=== PATIENT | female | born 1950 | race Caucasian/White ===

== ENCOUNTER → 2018-03-28 | Outpatient (CLI) | payer MEDICARE, BC | END | disposition home or self-care (01) | LOC: LAB SHORT 13:23 → LAB EV 13:23 | DX: R10.9 Unspecified abdominal pain (principal) | CPT/HCPCS: 87086 ==

== ENCOUNTER 2018-05-11 13:01 | Emergency (ER) | payer MEDICARE, BC ==
[~2018-05-11] VITALS: Ht 165.1 cm; Wt 99.8 kg
[2018-05-11] MEDS ORDERED: LISI20 PO (13:34)
[2018-05-11] MEDS ORDERED: LORA1 PO (13:35)
[2018-05-11] MEDS ORDERED: ATEN50 PO (13:35)
[2018-05-11] MEDS ORDERED: LEVSOD100 PO (13:35)
[2018-05-11] MEDS ORDERED: Aspir 8181 MG PO (13:35)
[2018-05-11] MEDS ORDERED: Omeprazole20 M1 PO (13:35)
[2018-05-11] MEDS ORDERED: HYDCHL25 PO ×2 (13:36→16:37)
[2018-05-11] MEDS ORDERED: MESA250ER PO (13:36)
[2018-05-11] MEDS ORDERED: NITR.4SL (13:36)
[2018-05-11] MEDS ORDERED: QUET25 PO (13:36)
[2018-05-11 14:43] LABS: BASOPHILS ABSOLUTE AUTO 0.03 K/mm3 (0.00-0.23); BASOPHILS PERCENT AUTO 1 % (0-2); EOSINOPHILS ABSOLUTE AUTO 0.12 K/mm3 (0.00-0.68); EOSINOPHILS PERCENT AUTO 2 % (0-6); Hematocrit 34.4 % (33.0-51.0); Hemoglobin 11.5 g/dL (11.5-16.0); IMMATURE GRAN ABSOLUTE AUTO 0.02 K/mm3 (0.00-0.10); IMMATURE GRAN PERCENT AUTO 0 % (0-1); LYMPHOCYTES ABSOLUTE AUTO 0.84 K/mm3 (0.84-5.20); LYMPHOCYTES PERCENT AUTO 16 % (21-46); MONOCYTES ABSOLUTE AUTO 0.52 K/mm3 (0.16-1.47); MONOCYTES PERCENT AUTO 10 % (4-13); Mean Corpuscular HGB 28.6 pg (26.0-34.0); Mean Corpuscular HGB Conc 33.4 g/dL (31.5-36.5); Mean Corpuscular Volume 86 fL (80-100); Mean Platelet Volume 9.9 fL (9.1-12.4); NEUTROPHILS ABSOLUTE AUTO 3.79 K/mm3 (1.96-9.15); NEUTROPHILS PERCENT AUTO 71 % (41-73); Platelet Count 268 K/mm3 (150-400); RDW Coefficient Variation 14.4 % (11.7-14.2); RDW Standard Deviation 44.1 fL (35.1-46.3); Red Blood Cell Count 4.02 M/mm3 (3.80-5.20); White Blood Cell Count 5.32 K/mm3 (4.00-11.30)
[2018-05-11 14:50] LABS: Alanine Aminotransfer (ALT/SGP 29 U/L (12-78); Albumin/Globulin Ratio 1.1 (0.8-1.8); Alk Phos 140 U/L (50-136); Anion Gap 7 mmol/L (6-16); Aspartate Aminotrans (AST/SGOT 21 U/L (12-37); Bilirubin, Total 0.7 mg/dL (0.1-1.0); Blood Urea Nitrogen 11 mg/dL (8-24); Bun/Creatinine Ratio 11.7 (12.0-20.0); CO2, Blood 29 mmol/L (21-32); Calcium, Blood 8.8 mg/dL (8.5-10.1); Chloride, Blood 96 mmol/L (98-108); Creatinine, Blood 0.94 mg/dL (0.40-1.00); Globulin, Blood 3.6 g/dL (2.2-4.0); Glomerular Filtration Rate >60 (60-); Glucose, Blood 103 mg/dL (70-99); Sodium, Blood 132 mmol/L (136-145); Total Protein, Blood 7.6 g/dL (6.4-8.2)
[2018-05-11] MEDS ORDERED: MECL12.5 PO (16:37)
[2018-05-11] MEDS ORDERED: Zofran8 MG PO (16:37)
== END 2018-05-11 16:54 | disposition home or self-care (01) ==
LOC: ER 13:01
PROVIDERS: Physician Assistant
DX: R42 Dizziness and giddiness (principal); I10 Essential (primary) hypertension; Z88.2 Allergy status to sulfonamides; Z88.1 Allergy status to other antibiotic agents; Z79.899 Other long term (current) drug therapy; Z79.82 Long term (current) use of aspirin
CPT/HCPCS: 36415; 70450; 80053; 85025; 93005; 93010; 96374; 99284-25; J2060

== ENCOUNTER → 2018-10-03 | Outpatient (CLI) | payer MEDICARE, BC ==
[~2018-10-03] MED LIST: ASACOL HD800 MG PO; ATEN25 PO; ATORVASTATIN CA40 MG PO; Aspir 8181 MG PO; Aspirin EC81 MG PO; BICALUTAMIDE50 MG PO; Bentyl20 MG PO; FURO20 PO; GABA300 PO; HYDCHL25 PO; Isosorbide Mono30 MG PO; LEVSOD100 PO; LISI20 PO; LORA1 PO; MECL12.5 PO; MESA250ER PO; METO25 PO; NITR.4SL; Omeprazole20 M1 PO; POTCHL20ER PO; Pedi-Dri 100,0060 GM TOP; Prilosec Otc20 MG PO; QUET25 PO; SIME80CH PO; Seroquel50 MG PO; Zofran8 MG PO
[2018-10-03 15:51] LABS: BASOPHILS ABSOLUTE AUTO 0.03 K/mm3 (0.00-0.23); BASOPHILS PERCENT AUTO 1 % (0-2); EOSINOPHILS PERCENT AUTO 2 % (0-6); Hematocrit 28.6 % (33.0-51.0); Hemoglobin 10.2 g/dL (11.5-16.0); IMMATURE GRAN ABSOLUTE AUTO 0.01 K/mm3 (0.00-0.10); IMMATURE GRAN PERCENT AUTO 0 % (0-1); LYMPHOCYTES ABSOLUTE AUTO 0.82 K/mm3 (0.84-5.20); LYMPHOCYTES PERCENT AUTO 16 % (21-46); MONOCYTES ABSOLUTE AUTO 0.65 K/mm3 (0.16-1.47); MONOCYTES PERCENT AUTO 13 % (4-13); Mean Corpuscular HGB 29.4 pg (26.0-34.0); Mean Corpuscular HGB Conc 35.7 g/dL (31.5-36.5); Mean Corpuscular Volume 82 fL (80-100); Mean Platelet Volume 9.2 fL (9.1-12.4); NEUTROPHILS PERCENT AUTO 69 % (41-73); Platelet Count 288 K/mm3 (150-400); RDW Coefficient Variation 13.2 % (11.7-14.2); RDW Standard Deviation 39.4 fL (35.1-46.3); Red Blood Cell Count 3.47 M/mm3 (3.80-5.20); White Blood Cell Count 5.21 K/mm3 (4.00-11.30)
[2018-10-03 16:02] LABS: Alanine Aminotransfer (ALT/SGP 28 U/L (12-78); Albumin, Blood 3.7 g/dL (3.4-5.0); Albumin/Globulin Ratio 0.9 (0.8-1.8); Alk Phos 142 U/L (40-126); Anion Gap 9 mmol/L (6-16); Aspartate Aminotrans (AST/SGOT 17 U/L (12-37); Bilirubin, Total 0.6 mg/dL (0.1-1.0); Blood Urea Nitrogen 12 mg/dL (8-24); Bun/Creatinine Ratio 12.2 (12.0-20.0); CO2, Blood 27 mmol/L (21-32); Calcium, Blood 9.3 mg/dL (8.5-10.1); Chloride, Blood 93 mmol/L (98-108); Creatinine, Blood 0.98 mg/dL (0.40-1.00); Globulin, Blood 3.9 g/dL (2.2-4.0); Glomerular Filtration Rate 56 (60-); Glucose, Blood 97 mg/dL (70-99); Potassium, Blood 4.2 mmol/L (3.5-5.5); Sodium, Blood 129 mmol/L (136-145); Total Protein, Blood 7.6 g/dL (6.4-8.2)
[2018-10-03 16:05] LABS: Troponin I <0.017 ng/mL (0.000-0.040)
== END | disposition home or self-care (01) ==
LOC: LAB EV 15:44 → LAB SHORT 15:44
PROVIDERS: Physician Assistant
DX: R07.89 Other chest pain (principal)
CPT/HCPCS: 80053; 83880; 84484; 85025

== ENCOUNTER 2018-11-05 17:18 | Inpatient (IN) | payer MEDICARE, BC ==
[~2018-11-05] VITALS: Ht 165.1 cm; Wt 103.4 kg
[~2018-11-05 17:18] MED LIST changes: -ASACOL HD800 MG PO; -ATEN25 PO; -ATORVASTATIN CA40 MG PO; -Aspirin EC81 MG PO; -BICALUTAMIDE50 MG PO; -Bentyl20 MG PO; -FURO20 PO; -GABA300 PO; -Isosorbide Mono30 MG PO; -LEVSOD100 PO; -LORA1 PO; -METO25 PO; -POTCHL20ER PO; -Pedi-Dri 100,0060 GM TOP; -Prilosec Otc20 MG PO; -SIME80CH PO; -Seroquel50 MG PO
[2018-11-05 17:55] LABS: BASOPHILS ABSOLUTE AUTO 0.02 K/mm3 (0.00-0.23); BASOPHILS PERCENT AUTO 0 % (0-2); EOSINOPHILS ABSOLUTE AUTO 0.04 K/mm3 (0.00-0.68); EOSINOPHILS PERCENT AUTO 1 % (0-6); Hematocrit 32.6 % (33.0-51.0); Hemoglobin 11.6 g/dL (11.5-16.0); IMMATURE GRAN ABSOLUTE AUTO 0.04 K/mm3 (0.00-0.10); IMMATURE GRAN PERCENT AUTO 1 % (0-1); LYMPHOCYTES PERCENT AUTO 14 % (21-46); MONOCYTES ABSOLUTE AUTO 0.85 K/mm3 (0.16-1.47); MONOCYTES PERCENT AUTO 12 % (4-13); Mean Corpuscular HGB 29.5 pg (26.0-34.0); Mean Corpuscular HGB Conc 35.6 g/dL (31.5-36.5); Mean Corpuscular Volume 83 fL (80-100); Mean Platelet Volume 9.1 fL (9.1-12.4); NEUTROPHILS ABSOLUTE AUTO 5.27 K/mm3 (1.96-9.15); NEUTROPHILS PERCENT AUTO 73 % (41-73); Platelet Count 282 K/mm3 (150-400); RDW Coefficient Variation 12.3 % (11.7-14.2); RDW Standard Deviation 37.8 fL (35.1-46.3); Red Blood Cell Count 3.93 M/mm3 (3.80-5.20); White Blood Cell Count 7.22 K/mm3 (4.00-11.30)
[2018-11-05 18:21] LABS: Troponin I <0.015 ng/mL (0.000-0.040)
[2018-11-05] MEDS ORDERED: METO25 PO (18:22)
[2018-11-05] MEDS ORDERED: BICALUTAMIDE50 MG PO (18:23)
[2018-11-05] MEDS ORDERED: LISI20 PO (18:23)
[2018-11-05 18:24] LABS: Alanine Aminotransfer (ALT/SGP 24 U/L (12-78); Albumin, Blood 3.7 g/dL (3.4-5.0); Alk Phos 159 U/L (50-136); Aspartate Aminotrans (AST/SGOT 27 U/L (12-37); Bilirubin, Total 1.5 mg/dL (0.1-1.0); Blood Urea Nitrogen 13 mg/dL (8-24); Bun/Creatinine Ratio 13.7 (12.0-20.0); CO2, Blood 30 mmol/L (21-32); Calcium, Blood 9.1 mg/dL (8.5-10.1); Chloride, Blood 80 mmol/L (98-108); Creatinine, Blood 0.95 mg/dL (0.40-1.00); Globulin, Blood 3.6 g/dL (2.2-4.0); Glomerular Filtration Rate >60 (60-); Glucose, Blood 96 mg/dL (70-99); Potassium, Blood 3.5 mmol/L (3.5-5.5); Total Protein, Blood 7.3 g/dL (6.4-8.2)
[2018-11-05 18:25] LABS: Anion Gap 7 mmol/L (6-16); Sodium, Blood 117 mmol/L (136-145)
[2018-11-05] MEDS ORDERED: FURO20 PO (18:25)
[2018-11-05] MEDS ORDERED: Seroquel50 MG PO (18:25)
[2018-11-05] MEDS ORDERED: Prilosec Otc20 MG PO (18:25)
[2018-11-05] MEDS ORDERED: Aspirin EC81 MG PO (18:25)
[2018-11-05] MEDS ORDERED: POTCHL20ER PO (18:26)
[2018-11-05 19:12] LABS: Source, Urine Clean Catch
[2018-11-05 19:16] LABS: Bilirubin, Urine Neg (Neg); Blood, Urine Neg (Neg); Glucose Qualitative, Urine Neg (Neg); Ketones, Urine Neg (Neg); Leukocyte Esterase, Urine Neg (Neg); Nitrite, Urine Neg (Neg); Protein, Urine Neg (Neg); Specific Gravity, Urine 1.005 (1.003-1.022); Urobilinogen, Urine NORM (Normal)
[2018-11-05 19:26] LABS: Appearance, Urine Clear (Clear); Color, Urine Yellow (P-Yellow)
[2018-11-05] MEDS ORDERED: LEVSOD100 PO (19:27)
[2018-11-05] MEDS ORDERED: ATEN25 PO (19:27)
[2018-11-05] MEDS ORDERED: LORA1 PO (19:29)
[2018-11-05] MEDS ORDERED: GABA300 PO (19:30)
[2018-11-05] MEDS ORDERED: HYDCHL25 PO (19:31)
[2018-11-05] MEDS ORDERED: ATORVASTATIN CA40 MG PO (19:32)
[2018-11-05] MEDS ORDERED: Isosorbide Mono30 MG PO (19:33)
[2018-11-05] MEDS ORDERED: ASACOL HD800 MG PO (19:58)
[2018-11-05 22:47] LABS: Magnesium, Blood 1.8 mg/dL (1.6-2.4)
[2018-11-05 22:53] LABS: C-REACTIVE PROTEIN, EXT RANGE 0.859 mg/dL (0.000-0.300)
[2018-11-05 22:54] LABS: Thyroid Stimulating Hormone 0.751 uIU/mL (0.360-4.800)
[2018-11-06 04:31] LABS: BASOPHILS ABSOLUTE AUTO 0.02 K/mm3 (0.00-0.23); BASOPHILS PERCENT AUTO 0 % (0-2); EOSINOPHILS PERCENT AUTO 2 % (0-6); Hematocrit 30.6 % (33.0-51.0); Hemoglobin 10.8 g/dL (11.5-16.0); IMMATURE GRAN ABSOLUTE AUTO 0.04 K/mm3 (0.00-0.10); IMMATURE GRAN PERCENT AUTO 1 % (0-1); LYMPHOCYTES ABSOLUTE AUTO 1.22 K/mm3 (0.84-5.20); LYMPHOCYTES PERCENT AUTO 19 % (21-46); MONOCYTES ABSOLUTE AUTO 1.01 K/mm3 (0.16-1.47); MONOCYTES PERCENT AUTO 16 % (4-13); Mean Corpuscular HGB 29.8 pg (26.0-34.0); Mean Corpuscular HGB Conc 35.3 g/dL (31.5-36.5); Mean Corpuscular Volume 84 fL (80-100); Mean Platelet Volume 9.1 fL (9.1-12.4); NEUTROPHILS ABSOLUTE AUTO 4.01 K/mm3 (1.96-9.15); NEUTROPHILS PERCENT AUTO 63 % (41-73); Platelet Count 249 K/mm3 (150-400); RDW Coefficient Variation 12.5 % (11.7-14.2); RDW Standard Deviation 38.3 fL (35.1-46.3); Red Blood Cell Count 3.63 M/mm3 (3.80-5.20)
[2018-11-06 04:57] LABS: Alanine Aminotransfer (ALT/SGP 17 U/L (12-78); Albumin, Blood 3.5 g/dL (3.4-5.0); Albumin/Globulin Ratio 1.1 (0.8-1.8); Alk Phos 148 U/L (50-136); Anion Gap 8 mmol/L (6-16); Aspartate Aminotrans (AST/SGOT 22 U/L (12-37); Bilirubin, Total 0.7 mg/dL (0.1-1.0); Blood Urea Nitrogen 12 mg/dL (8-24); Bun/Creatinine Ratio 12.9 (12.0-20.0); CO2, Blood 27 mmol/L (21-32); Calcium, Blood 8.8 mg/dL (8.5-10.1); Chloride, Blood 88 mmol/L (98-108); Creatinine, Blood 0.93 mg/dL (0.40-1.00); Globulin, Blood 3.3 g/dL (2.2-4.0); Glomerular Filtration Rate >60 (60-); Glucose, Blood 97 mg/dL (70-99); Potassium, Blood 3.3 mmol/L (3.5-5.5); Sodium, Blood 123 mmol/L (136-145); Total Protein, Blood 6.8 g/dL (6.4-8.2)
[2018-11-07 08:06] LABS: Anion Gap 9 mmol/L (6-16); Blood Urea Nitrogen 9 mg/dL (8-24); CO2, Blood 25 mmol/L (21-32); Calcium, Blood 8.6 mg/dL (8.5-10.1); Chloride, Blood 96 mmol/L (98-108); Creatinine, Blood 0.82 mg/dL (0.40-1.00); Glomerular Filtration Rate >60 (60-); Glucose, Blood 100 mg/dL (70-99); Potassium, Blood 3.6 mmol/L (3.5-5.5); Sodium, Blood 130 mmol/L (136-145)
[2018-11-07] MEDS ORDERED: Bentyl20 MG PO (09:23)
[2018-11-07] MEDS ORDERED: Pedi-Dri 100,0060 GM TOP (09:24)
[2018-11-07] MEDS ORDERED: SIME80CH PO (09:27)
== END 2018-11-07 11:39 | disposition home or self-care (01) | DRG 644 ==
LOC: ER 17:18 → ERHOLD 23:13 → PCU 23:13
PROVIDERS: Internal Medicine; Nurse Practitioner Acute Care; Physician Assistant; ADMIT Internal Medicine
DX: E22.2 Syndrome of inappropriate secretion of antidiuretic hormone (principal); K51.90 Ulcerative colitis, unspecified, without complications; I50.32 Chronic diastolic (congestive) heart failure; K62.5 Hemorrhage of anus and rectum; Z79.82 Long term (current) use of aspirin; E03.9 Hypothyroidism, unspecified; I35.0 Nonrheumatic aortic (valve) stenosis; I11.0 Hypertensive heart disease with heart failure; Z87.891 Personal history of nicotine dependence; E86.0 Dehydration; K21.9 Gastro-esophageal reflux disease without esophagitis; I25.10 Atherosclerotic heart disease of native coronary artery without angina pectoris; I27.20 Pulmonary hypertension, unspecified; I71.2 Thoracic aortic aneurysm, without rupture; F31.9 Bipolar disorder, unspecified; H40.9 Unspecified glaucoma; F43.10 Post-traumatic stress disorder, unspecified; K59.00 Constipation, unspecified; R00.1 Bradycardia, unspecified
CPT/HCPCS: 36415; 71046; 74177; 80048; 80053; 81003; 83690; 83735; 83930; 83935; 84295; 84300; 84443; 84484; 85025; 85651; 86140; 93005; 93010; 96361-59; 96374-59; 96375-59; 96376-59; 99285-25; A9270; J1170; J1200; J1650; J2405; J2765; J7030; J7120; Q9967

== ENCOUNTER → 2019-01-10 | Outpatient (CLI) | payer MEDICARE, BC ==
[~2019-01-10] MED LIST changes: +ASACOL HD800 MG PO; +ATEN25 PO; +ATORVASTATIN CA40 MG PO; +Aspirin EC81 MG PO; +BICALUTAMIDE50 MG PO; +Bentyl20 MG PO; +FURO20 PO; +GABA300 PO; +Isosorbide Mono30 MG PO; +LEVSOD100 PO; +LORA1 PO; +METO25 PO; +POTCHL20ER PO; +Pedi-Dri 100,0060 GM TOP; +Prilosec Otc20 MG PO; +SIME80CH PO; +Seroquel50 MG PO
[2019-01-10 12:35] LABS: Calcium, Blood 9.2 mg/dL (8.5-10.1); Potassium, Blood 4.1 mmol/L (3.5-5.5)
== END | disposition home or self-care (01) ==
LOC: LAB SHORT 12:23 → LAB EV 12:23
PROVIDERS: Family Medicine
DX: N18.9 Chronic kidney disease, unspecified (principal)
CPT/HCPCS: 80048

== ENCOUNTER 2019-02-05 12:52 | Emergency (ER) | payer MEDICARE, BC ==
[~2019-02-05] VITALS: Ht 165.1 cm; Wt 120.7 kg
[2019-02-05 13:44] LABS: BASOPHILS ABSOLUTE AUTO 0.02 K/mm3 (0.00-0.23); BASOPHILS PERCENT AUTO 1 % (0-2); EOSINOPHILS ABSOLUTE AUTO 0.15 K/mm3 (0.00-0.68); EOSINOPHILS PERCENT AUTO 4 % (0-6); Hemoglobin 11.1 g/dL (11.5-16.0); IMMATURE GRAN ABSOLUTE AUTO 0.01 K/mm3 (0.00-0.10); IMMATURE GRAN PERCENT AUTO 0 % (0-1); LYMPHOCYTES ABSOLUTE AUTO 0.92 K/mm3 (0.84-5.20); LYMPHOCYTES PERCENT AUTO 25 % (21-46); MONOCYTES ABSOLUTE AUTO 0.51 K/mm3 (0.16-1.47); MONOCYTES PERCENT AUTO 14 % (4-13); Mean Corpuscular HGB 29.5 pg (26.0-34.0); Mean Corpuscular HGB Conc 34.7 g/dL (31.5-36.5); Mean Corpuscular Volume 85 fL (80-100); Mean Platelet Volume 9.2 fL (9.1-12.4); NEUTROPHILS ABSOLUTE AUTO 2.14 K/mm3 (1.96-9.15); NEUTROPHILS PERCENT AUTO 57 % (41-73); Platelet Count 285 K/mm3 (150-400); RDW Coefficient Variation 12.8 % (11.7-14.2); RDW Standard Deviation 39.4 fL (35.1-46.3); Red Blood Cell Count 3.76 M/mm3 (3.80-5.20); White Blood Cell Count 3.75 K/mm3 (4.00-11.30)
[2019-02-05 14:15] LABS: Alanine Aminotransfer (ALT/SGP 21 U/L (12-78); Albumin, Blood 3.6 g/dL (3.4-5.0); Alk Phos 135 U/L (50-136); Anion Gap 9 mmol/L (6-16); Aspartate Aminotrans (AST/SGOT 17 U/L (12-37); Bilirubin, Total 0.3 mg/dL (0.1-1.0); Blood Urea Nitrogen 9 mg/dL (8-24); Bun/Creatinine Ratio 9.7 (12.0-20.0); CO2, Blood 27 mmol/L (21-32); Calcium, Blood 8.6 mg/dL (8.5-10.1); Chloride, Blood 87 mmol/L (98-108); Creatinine, Blood 0.93 mg/dL (0.40-1.00); Globulin, Blood 3.7 g/dL (2.2-4.0); Glomerular Filtration Rate >60 (60-); Glucose, Blood 89 mg/dL (70-99); Potassium, Blood 3.8 mmol/L (3.5-5.5); Sodium, Blood 123 mmol/L (136-145); Total Protein, Blood 7.3 g/dL (6.4-8.2); Troponin I <0.015 ng/mL (0.000-0.040)
[2019-02-05] MEDS ORDERED: SODCHL1 PO (14:29)
[2019-02-05] MEDS ORDERED: NITR.4SL SL (14:30)
[2019-02-05] MEDS ORDERED: Norco 5-325 Ta1 EACH PO (17:21)
== END 2019-02-05 18:53 | disposition home or self-care (01) ==
LOC: ER 12:52
PROVIDERS: Physician Assistant
DX: I11.0 Hypertensive heart disease with heart failure (principal); I50.32 Chronic diastolic (congestive) heart failure; E03.9 Hypothyroidism, unspecified; Z79.899 Other long term (current) drug therapy; Z79.82 Long term (current) use of aspirin
CPT/HCPCS: 36415; 71046; 71275; 74175; 80053; 84484; 85025; 93005; 93010; 96374-59; 96375-59; 96376-59; 99285-25; J0360; J1170; Q9967

== ENCOUNTER → 2019-03-04 | Outpatient (CLI) | payer MEDICARE, BC ==
[~2019-03-04] MED LIST changes: +NITR.4SL SL; +Norco 5-325 Ta1 EACH PO; +SODCHL1 PO
[2019-03-04 14:48] LABS: BASOPHILS ABSOLUTE AUTO 0.03 K/mm3 (0.00-0.23); BASOPHILS PERCENT AUTO 1 % (0-2); EOSINOPHILS ABSOLUTE AUTO 0.08 K/mm3 (0.00-0.68); EOSINOPHILS PERCENT AUTO 2 % (0-6); IMMATURE GRAN ABSOLUTE AUTO 0.02 K/mm3 (0.00-0.10); IMMATURE GRAN PERCENT AUTO 0 % (0-1); LYMPHOCYTES ABSOLUTE AUTO 0.96 K/mm3 (0.84-5.20); LYMPHOCYTES PERCENT AUTO 20 % (21-46); MONOCYTES ABSOLUTE AUTO 0.61 K/mm3 (0.16-1.47); MONOCYTES PERCENT AUTO 13 % (4-13); Mean Corpuscular HGB 29.4 pg (26.0-34.0); Mean Corpuscular HGB Conc 34.4 g/dL (31.5-36.5); Mean Corpuscular Volume 86 fL (80-100); Mean Platelet Volume 9.2 fL (9.1-12.4); NEUTROPHILS ABSOLUTE AUTO 3.05 K/mm3 (1.96-9.15); NEUTROPHILS PERCENT AUTO 64 % (41-73); Platelet Count 285 K/mm3 (150-400); RDW Coefficient Variation 13.1 % (11.7-14.2); RDW Standard Deviation 40.6 fL (35.1-46.3); Red Blood Cell Count 3.74 M/mm3 (3.80-5.20); White Blood Cell Count 4.75 K/mm3 (4.00-11.30)
[2019-03-04 15:11] LABS: Albumin, Blood 3.5 g/dL (3.4-5.0); Albumin/Globulin Ratio 0.9 (0.8-1.8); Bilirubin, Total 0.3 mg/dL (0.1-1.0); Bun/Creatinine Ratio 10.1 (12.0-20.0); Calcium, Blood 8.4 mg/dL (8.5-10.1); Creatinine, Blood 0.99 mg/dL (0.40-1.00); Globulin, Blood 3.7 g/dL (2.2-4.0); Potassium, Blood 4.1 mmol/L (3.5-5.5); Thyroid Stimulating Hormone 0.967 uIU/mL (0.360-4.800); Total Protein, Blood 7.2 g/dL (6.4-8.2)
== END ==
LOC: LAB EV 14:43 → LAB SHORT 14:43
PROVIDERS: Physician Assistant Medical
DX: R53.83 Other fatigue (principal)
CPT/HCPCS: 80053; 84443; 85025

== ENCOUNTER → 2019-05-15 | Outpatient (CLI) | payer MEDICARE, BC | END | disposition home or self-care (01) | LOC: LAB SHORT 19:15 → LAB 19:15 | DX: N39.0 Urinary tract infection, site not specified (principal) | CPT/HCPCS: 87086 ==

== ENCOUNTER 2020-01-01 16:02 | Observation (INO) | payer MEDICARE, BC ==
[~2020-01-01] VITALS: Ht 165.1 cm; Wt 108.2 kg
[~2020-01-01 16:02] MED LIST changes: -ACET325 PO; -ASACOL HD800 MG PO; -ATOR40TA PO; -AURYXIA210 MG PO; -AZIT500 PO; -Aspirin EC81 MG PO; -CLOP75 PO; -DILT120 PO; -ELIQUIS5 MG PO; -EUTHYROX50 MCG PO; -FURO20 PO; -LORA1 PO; -OMEP20ER PO; -POTCHL20ER PO; -RANOLAZINE ER500 M2 PO; -Seroquel Xr50 MG PO
[2020-01-01 18:03] LABS: Source, Urine Clean Catch
[2020-01-01 18:12] LABS: Appearance, Urine Clear (Clear); Bilirubin, Urine Neg (Neg); Blood, Urine Neg (Neg); Color, Urine Yellow (P-Yellow); Glucose Qualitative, Urine Neg (Neg); Ketones, Urine Neg (Neg); Leukocyte Esterase, Urine Neg (Neg); Nitrite, Urine Neg (Neg); Protein, Urine Neg (Neg); Specific Gravity, Urine 1.015 (1.003-1.022); Urobilinogen, Urine NORM (Normal)
[2020-01-01 18:14] LABS: BASOPHILS ABSOLUTE AUTO 0.03 K/mm3 (0.00-0.23); BASOPHILS PERCENT AUTO 1 % (0-2); EOSINOPHILS ABSOLUTE AUTO 0.13 K/mm3 (0.00-0.68); EOSINOPHILS PERCENT AUTO 2 % (0-6); Hematocrit 36.8 % (33.0-51.0); Hemoglobin 11.6 g/dL (11.5-16.0); IMMATURE GRAN ABSOLUTE AUTO 0.02 K/mm3 (0.00-0.10); IMMATURE GRAN PERCENT AUTO 0 % (0-1); LYMPHOCYTES PERCENT AUTO 17 % (21-46); MONOCYTES ABSOLUTE AUTO 0.57 K/mm3 (0.16-1.47); MONOCYTES PERCENT AUTO 10 % (4-13); Mean Corpuscular HGB Conc 31.5 g/dL (31.5-36.5); Mean Corpuscular Volume 76 fL (80-100); Mean Platelet Volume 9.6 fL (9.1-12.4); NEUTROPHILS ABSOLUTE AUTO 4.26 K/mm3 (1.96-9.15); NEUTROPHILS PERCENT AUTO 71 % (41-73); Platelet Count 262 K/mm3 (150-400); RDW Coefficient Variation 17.2 % (11.7-14.2); RDW Standard Deviation 47.2 fL (35.1-46.3); Red Blood Cell Count 4.84 M/mm3 (3.80-5.20); White Blood Cell Count 6.01 K/mm3 (4.00-11.30)
[2020-01-01 18:37] LABS: Alanine Aminotransfer (ALT/SGP 28 U/L (12-78); Albumin, Blood 3.7 g/dL (3.4-5.0); Alk Phos 165 U/L (50-136); Anion Gap 8 mmol/L (6-16); Aspartate Aminotrans (AST/SGOT 24 U/L (12-37); Bilirubin, Total 0.2 mg/dL (0.1-1.0); Blood Urea Nitrogen 15 mg/dL (8-24); Bun/Creatinine Ratio 18.2 (12.0-20.0); CO2, Blood 26 mmol/L (21-32); Calcium, Blood 9.3 mg/dL (8.5-10.1); Chloride, Blood 100 mmol/L (98-108); Creatinine, Blood 0.83 mg/dL (0.40-1.00); Globulin, Blood 3.8 g/dL (2.2-4.0); Glomerular Filtration Rate >60 (60-); Glucose, Blood 95 mg/dL (70-99); Potassium, Blood 4.4 mmol/L (3.5-5.5); Sodium, Blood 134 mmol/L (136-145); Total Protein, Blood 7.5 g/dL (6.4-8.2); Troponin I 0.038 ng/mL (0.000-0.040)
[2020-01-01] MEDS ORDERED: Seroquel Xr50 MG PO (19:17)
[2020-01-01] MEDS ORDERED: ATEN25 PO (19:18)
[2020-01-01] MEDS ORDERED: LORA1 PO (19:19)
[2020-01-01] MEDS ORDERED: FURO20 PO (19:19)
[2020-01-01] MEDS ORDERED: ELIQUIS5 MG PO (19:20)
[2020-01-01] MEDS ORDERED: ATOR40TA PO (19:21)
[2020-01-01] MEDS ORDERED: GABA300 PO (19:21)
[2020-01-01] MEDS ORDERED: SODCHL1 PO (19:22)
[2020-01-01] MEDS ORDERED: LISI20 PO (19:23)
[2020-01-01] MEDS ORDERED: DILT120 PO (19:23)
[2020-01-01] MEDS ORDERED: EUTHYROX50 MCG PO (19:23)
[2020-01-01] MEDS ORDERED: OMEP20ER PO (19:24)
[2020-01-01] MEDS ORDERED: CLOP75 PO (19:24)
[2020-01-01] MEDS ORDERED: Aspirin EC81 MG PO (19:25)
[2020-01-01] MEDS ORDERED: POTCHL20ER PO (19:25)
[2020-01-01] MEDS ORDERED: RANOLAZINE ER500 M2 PO (19:29)
[2020-01-01] MEDS ORDERED: ASACOL HD800 MG PO (19:43)
[2020-01-01] MEDS ORDERED: AURYXIA210 MG PO (19:45)
[2020-01-01] MEDS ORDERED: NITR.4SL SL (19:45)
--- NOTE | 2020-01-02 00:05 | NUR ---
APPROX 2209 PATIENT ARRIVED TO [facility] VIA GURNEY FROM ER. PATIENTS SKIN C/D/I AND PATIENT AMBULATED TO BATHROOM WITH SBA, STEADY ON FEET. ADMISSION COMPLETED AND PATIENT ORIENTED TO ROOM, CALL LIGHT AND POLICIES. HAILEY MULLINS IN TO SEE PATIENT AND DECISION MADE TO TRANSFER PATIENT TO ICU4. APPROX 2350 PATIENT REPORT GIVEN TO CAN VACUUM TESTER NAILA. PATIENT TRANSFERED TO ICU04 VIA BED, NO ISSUES DURING TRANSPORT.
--- NOTE | 2020-01-02 00:30 | NUR ---
ASSESSMENT/ASSUMED CARE PT TRANSFERED TO ICU 04 VIA PCU FOR NTG GTT FOR BP CONTROL. PT ARRIVED VIA BED AND STOOD FOR TRANSFER TO ICU BED. GAIT STEADY. DENIES PAIN OR DISCOMFORT. PT TO BSC AND VOIDED CLEAR YELLOW URINE. LUNGS CLEAR ON ROOMAIR. RESP EVEN AND NONLABORED. HEART RATE IN THE 50'S. BP 141/70 AFTER PT BACK IN BED AND RESTING. HOLD NTG AT THIS TIME. ORDER IS TO TITRATE TO KEEP SBP BELOW 150. BT+ ABD SOFT AND NONTENDER. DENIES N/V. NEW IV 20G PLACED TO RIGHT FOREARM. IV 20G TO LEFT AC SALINE LOCKED, SITE CLEAR. PT A&O, FOLLOWING INSTRUCTIONS AND ANSWERING QUESTIONS APPROP.
--- NOTE | 2020-01-02 01:00 | NUR ---
MEDS NS AT 10 ML/HR STARTED TO KEEP IV OPEN. PT MED WITH ELIQUIS AND 100 MG SEROQUEL. PT STATES,"I ONLY TAKE 100 MG OF SEROQUEL NOT 150 MG DUE TO RESTLESS LEG SYNDROME. IF I TAKE MORE MY LEGS ARE JUST ALL OVER THE PLACE". PT REFUSED MAALOX. ATE 2 PUDDINGS. PT STATES," IF I START HAVING PAIN IN MY ARMS DO I GET MY GABAPENTIN" EXPLAINED THAT THERE IS NO ORDER FOR GABAPENTIN. PT STATES,"SO IF MY ARMS START HURTING I CAN HAVE MORE FENTANYL? RIGHT?" PT DENIES PAIN AT THIS TIME.
--- NOTE | 2020-01-02 02:51 | NUR ---
ATIVAN PT UP TO BSC. VOIDED 200 ML CLEAR YELLOW URINE. BACK TO BED. PT REQUESTED ATIVAN-GIVEN. PT STATES,"MAYBE I CAN GET SOME SLEEP".
[2020-01-02 05:41] LABS: BASOPHILS ABSOLUTE AUTO 0.03 K/mm3 (0.00-0.23); BASOPHILS PERCENT AUTO 1 % (0-2); EOSINOPHILS ABSOLUTE AUTO 0.16 K/mm3 (0.00-0.68); EOSINOPHILS PERCENT AUTO 3 % (0-6); Hematocrit 32.7 % (33.0-51.0); Hemoglobin 10.3 g/dL (11.5-16.0); IMMATURE GRAN ABSOLUTE AUTO 0.02 K/mm3 (0.00-0.10); IMMATURE GRAN PERCENT AUTO 0 % (0-1); LYMPHOCYTES ABSOLUTE AUTO 1.34 K/mm3 (0.84-5.20); LYMPHOCYTES PERCENT AUTO 28 % (21-46); MONOCYTES ABSOLUTE AUTO 0.73 K/mm3 (0.16-1.47); MONOCYTES PERCENT AUTO 15 % (4-13); Mean Corpuscular HGB 23.8 pg (26.0-34.0); Mean Corpuscular HGB Conc 31.5 g/dL (31.5-36.5); Mean Corpuscular Volume 76 fL (80-100); Mean Platelet Volume 9.6 fL (9.1-12.4); NEUTROPHILS ABSOLUTE AUTO 2.55 K/mm3 (1.96-9.15); NEUTROPHILS PERCENT AUTO 53 % (41-73); Platelet Count 226 K/mm3 (150-400); RDW Coefficient Variation 17.2 % (11.7-14.2); RDW Standard Deviation 46.6 fL (35.1-46.3); Red Blood Cell Count 4.32 M/mm3 (3.80-5.20); White Blood Cell Count 4.83 K/mm3 (4.00-11.30)
--- NOTE | 2020-01-02 05:46 | NUR ---
SHIFT SUMMARY PT TRANSFERED FROM PCU TO ICU FOR BP CONTROL. NTG GTT NOT STARTED DUE TO SBP BELOW 150. PT DENIES PAIN OR DISCOMFORT. MOVING AND TURNING SELF IN BED. VSS. UP TO BSC WITH STANDBY ASSIST. VOIDING CLEAR YELLOW URINE. PT SLEEPING, AWAKENS EASILY. NO ACUTE CHANGE. REPORT TO ON COMING NURSE.
[2020-01-02 05:54] LABS: Anion Gap 5 mmol/L (6-16); Blood Urea Nitrogen 13 mg/dL (8-24); Bun/Creatinine Ratio 15.1 (12.0-20.0); CO2, Blood 28 mmol/L (21-32); Calcium, Blood 8.8 mg/dL (8.5-10.1); Chloride, Blood 101 mmol/L (98-108); Creatinine, Blood 0.86 mg/dL (0.40-1.00); Glomerular Filtration Rate >60 (60-); Glucose, Blood 103 mg/dL (70-99); Potassium, Blood 4.1 mmol/L (3.5-5.5); Sodium, Blood 134 mmol/L (136-145)
--- NOTE | 2020-01-02 10:27 | NUR ---
CARE ASSUMED ASSESSMENT COMPLETED, PT ALERT AND ORIENTED X4, COOPERATIVE WITH CARE. LS CLEAR, HR 60'S SINUS WITH BBB. PT REPORTS MILD MID CHEST PRESSURE, DENIES PAIN, REPORTS SHE IS WEAK AND FEELS SLIGHTLY SOB, AFEBRILE. LS CTA, SPO2 >90% ON RA. BP STABLE AT THIS TIME, AM MEDS ADMINISTERED PER JUN, PT ATE BREAKFAST WITHOUT DIFFICULTY. DR. WREN IN TO SEE PATIENT, DR. ANDERSON CONSULTED AND IN TO SEE PATIENT. ECHO DONE AND LABS DRAWN. PT GIVEN ATIVAN FOR MODERATE ANXIETY REGARDING PLAN OF CARE AND DIAGNOSIS, IS NOW RESTING WITH EYES CLOSED. VSS.
--- NOTE | 2020-01-02 15:52 | NUR ---
TRANSFER TO MED FLOOR DR. ANDERSON HAS REVIEWED RECORDS FROM [facility], STATES ANGIO IS NOT INDICATED AT THIS TIME, PT AWARE AND HAS SPOKEN AGAIN WITH BOTH 'S MONICA AND HOLGER WHILE WAS AT BEDSIDE. PT ANXIOUS REGARDING MOVE TO MEDICAL FLOOR, VS REMAIN STABLE, WILL MEDICATE WITH ATIVAN PER JUN. SBP BELOW 150 TODAY WITHOUT NITRO, HAS BEEN MEDICATED WITH HOME MEDS PER JUN, TOLERATED WELL. HR 50'S-60'S SINUS WITH BBB AND 1ST DEGREE BLOCK, PT HAS DENIED CHEST PAIN THIS SHIFT. LS REMAIN CLEAR, PT VOIDING, TOLERATING PO WELL, DENIES OTHER NEEDS AT THIS TIME. REPORT TO YEYORN, PT TO RM 329 WITH MEDS, CHART, AND BELONGINGS VIA WC WITH STAFF ASSIST.
--- NOTE | 2020-01-02 17:42 | NUR ---
Initial spiritual care note: Mrs. Kennedy was very sleepy when I visited her in ICU this morning. She was not interested in ACP education and declined prayer. Per admit trigger, I was tasked to provide advanced directive. I left it on bedside table. [employer] services will remain available.
--- NOTE | 2020-01-02 19:23 | NUR ---
SHIFT SUMMARY: PATIENT XFR FROM ICU-04 THIS SHIFT. PT A&O; CALM AND COOPERATIVE WITH CARE. NO C/O PAIN SINCE ARRIVAL ON MEDICAL FLOOR. TELE IN PLACE; SR @ 65 PER TUBERCULOSIS SPECIALIST. MEDICATED FOR ANXIETY IN ICU JUST PRIOR TO XFR. OBS PATIENT; POSSIBLE D/C TO HOME 01/02. REPORT GIVEN TO ONCOMING RN.
--- NOTE | 2020-01-03 04:45 | NUR ---
PLUMBER APPRENTICE SUMMARY PT DENIED AY SEVERE CHEST PAIN AND STATED THAT THE TIGHTNESS IN HER ABDOMEN HAS REMAINED THE SAME. PT APPEARED ANXIOUS AND WAS VERY CONCERENED ABOUT HER ELIQUIS BEING CHANGED TO XARELTO SO PHARMACY WAS CALLED AND IT WAS EXPLAINED TO HER WHY THAT WAS CHANGED. PT SLEPT FOR MAJORITY OF THE SHIFT AND TELE HAS REMAINED IN PLACE AT SINUS RYTHY IN THE 60'S. PT DENIED ANY SOB.
[2020-01-03] MEDS ORDERED: AZIT500 PO (11:36)
[2020-01-03] MEDS ORDERED: ACET325 PO (11:36)
--- NOTE | 2020-01-03 12:29 | NUR ---
PATIENT DISCHARGE: PATIENT DISCHARGED TO HOME THIS SHIFT. MEDICATION RECONCILIATION COMPLETED; MED LIST FAXED TO [facility] DISCHARGE EDUCATION COMPLETED WITH PATIENT. PATIENT TRANSPORTED TO EXIT BY [facility] WITH WHEELCHAIR AT 1216. PATIENT DEPARTED [facility] VIA PRIVATE AUTO.
== END 2020-01-03 12:17 | disposition home or self-care (01) ==
LOC: ER 16:02 → ICUE 16:03 → PCU 16:03 → MEDS 16:03 → PCU 22:07 → ICUE 23:56 → MEDS 01-02 16:22
PROVIDERS: Nurse Practitioner Acute Care; Physician Assistant; ADMIT Internal Medicine
DX: R07.89 Other chest pain (principal); I44.7 Left bundle-branch block, unspecified; I48.0 Paroxysmal atrial fibrillation; I11.0 Hypertensive heart disease with heart failure; I50.32 Chronic diastolic (congestive) heart failure; F41.9 Anxiety disorder, unspecified; K21.9 Gastro-esophageal reflux disease without esophagitis; E03.9 Hypothyroidism, unspecified; Z95.2 Presence of prosthetic heart valve; Z20.828 Contact with and (suspected) exposure to other viral communicable diseases; Z79.82 Long term (current) use of aspirin; Z79.01 Long term (current) use of anticoagulants; Z79.899 Other long term (current) drug therapy; Z88.2 Allergy status to sulfonamides; Z88.1 Allergy status to other antibiotic agents; Z91.040 Latex allergy status; E78.5 Hyperlipidemia, unspecified; Z87.891 Personal history of nicotine dependence
CPT/HCPCS: 36415; 70450; 71275; 74175; 80048; 80053; 81003; 83880; 84484; 85025; 87081; 87430; 93005; 93010; 93306; 96374; 99285-25; A9270; A9270-GY; J0696; J2060; J2405; J7040; Q9967; U0002

== ENCOUNTER → 2020-01-01 | Outpatient (CLI) | payer MEDICARE, BC, OTHER ==
[~2020-01-01] MED LIST changes: +ACET325 PO; +ATOR40TA PO; +AURYXIA210 MG PO; +AZIT500 PO; +Ativan1 MG PO; +CLOP75 PO; +CYCL10 PO; +Catapres-Tts 11 EACH TOP; +DILT120 PO; +ELIQUIS5 MG PO; +EUTHYROX50 MCG PO; +Flonase 0.05% N16 GM; +HYDR1TAB94 PO; +IRON150C PO; +OMEP20ER PO; +OPTLUBOPOB LEFTEYE; +PRED20 PO; -Prilosec Otc20 MG PO; +RANOLAZINE ER500 M2 PO; +Seroquel Xr50 MG PO; -Seroquel50 MG PO
[2020-01-01 16:22] LABS: Free Thyroxine 1.44 ng/dL (0.70-1.60); Troponin I 0.03 ng/mL (0.000-0.040)
== END ==
LOC: LAB EV 15:06 → LAB SHORT 15:06
PROVIDERS: Physician Assistant Surgical
DX: R05 Cough (principal); Z20.828 Contact with and (suspected) exposure to other viral communicable diseases
CPT/HCPCS: 84439; 84481; 84484; U0003

== ENCOUNTER → 2020-01-01 | Outpatient (CLI) | payer MEDICARE, BC ==
[2020-01-01 14:56] LABS: BASOPHILS ABSOLUTE AUTO 0.04 K/mm3 (0.00-0.23); BASOPHILS PERCENT AUTO 1 % (0-2); EOSINOPHILS ABSOLUTE AUTO 0.12 K/mm3 (0.00-0.68); EOSINOPHILS PERCENT AUTO 2 % (0-6); Hematocrit 35.4 % (33.0-51.0); Hemoglobin 11.5 g/dL (11.5-16.0); IMMATURE GRAN ABSOLUTE AUTO 0.02 K/mm3 (0.00-0.10); IMMATURE GRAN PERCENT AUTO 0 % (0-1); LYMPHOCYTES ABSOLUTE AUTO 1.01 K/mm3 (0.84-5.20); LYMPHOCYTES PERCENT AUTO 20 % (21-46); MONOCYTES ABSOLUTE AUTO 0.61 K/mm3 (0.16-1.47); MONOCYTES PERCENT AUTO 12 % (4-13); Mean Corpuscular HGB 24.4 pg (26.0-34.0); Mean Corpuscular HGB Conc 32.5 g/dL (31.5-36.5); Mean Corpuscular Volume 75 fL (80-100); Mean Platelet Volume 9.3 fL (9.1-12.4); NEUTROPHILS ABSOLUTE AUTO 3.35 K/mm3 (1.96-9.15); NEUTROPHILS PERCENT AUTO 65 % (41-73); Platelet Count 281 K/mm3 (150-400); RDW Coefficient Variation 17.2 % (11.7-14.2); RDW Standard Deviation 46.5 fL (35.1-46.3); Red Blood Cell Count 4.72 M/mm3 (3.80-5.20); White Blood Cell Count 5.15 K/mm3 (4.00-11.30)
[2020-01-01 15:13] LABS: Bun/Creatinine Ratio 16.5 (12.0-20.0); Calcium, Blood 9.1 mg/dL (8.5-10.1); Creatinine, Blood 0.97 mg/dL (0.40-1.00); Potassium, Blood 4.4 mmol/L (3.5-5.5); Thyroid Stimulating Hormone 0.141 uIU/mL (0.360-4.800)
== END | disposition home or self-care (01) ==
LOC: LAB EV 14:49 → LAB SHORT 14:49
PROVIDERS: Physician Assistant Surgical
DX: R53.83 Other fatigue (principal)
CPT/HCPCS: 80048; 84443; 85025

== ENCOUNTER 2020-01-26 16:20 | Emergency (ER) | payer MEDICARE, BC ==
[~2020-01-26] VITALS: Ht 165.1 cm; Wt 104.3 kg
[~2020-01-26 16:20] MED LIST changes: +ACET325 PO; +ASACOL HD800 MG PO; +ATOR40TA PO; +AURYXIA210 MG PO; +AZIT500 PO; +Aspirin EC81 MG PO; +CLOP75 PO; +DILT120 PO; +ELIQUIS5 MG PO; +EUTHYROX50 MCG PO; +FURO20 PO; +LORA1 PO; +OMEP20ER PO; +POTCHL20ER PO; +RANOLAZINE ER500 M2 PO; +Seroquel Xr50 MG PO
[2020-01-26] MEDS ORDERED: AMOCLA875 PO (20:16)
[2020-01-26] MEDS ORDERED: Zithromax250 MG PO (20:16)
== END 2020-01-26 20:19 | disposition home or self-care (01) ==
LOC: ER 16:20
DX: J40 Bronchitis, not specified as acute or chronic (principal); R07.89 Other chest pain; I10 Essential (primary) hypertension; E03.9 Hypothyroidism, unspecified; I25.2 Old myocardial infarction; F41.9 Anxiety disorder, unspecified; E78.5 Hyperlipidemia, unspecified; F17.210 Nicotine dependence, cigarettes, uncomplicated; Z88.2 Allergy status to sulfonamides; Z88.1 Allergy status to other antibiotic agents; Z88.8 Allergy status to other drugs, medicaments and biological substances; Z79.01 Long term (current) use of anticoagulants; Z79.82 Long term (current) use of aspirin; Z91.040 Latex allergy status; Z79.899 Other long term (current) drug therapy
CPT/HCPCS: 83690; 84484; 85379; 93005; 93010; 99285-25; A9270

== ENCOUNTER 2020-05-28 14:33 | Emergency (ER) | payer MEDICARE, BC ==
[~2020-05-28] VITALS: Ht 165.1 cm; Wt 106.6 kg
[~2020-05-28 14:33] MED LIST changes: +AMOCLA875 PO; +Zithromax250 MG PO
[2020-05-28 15:14] LABS: BASOPHILS ABSOLUTE AUTO 0.04 K/mm3 (0.00-0.23); BASOPHILS PERCENT AUTO 1 % (0-2); EOSINOPHILS ABSOLUTE AUTO 0.14 K/mm3 (0.00-0.68); EOSINOPHILS PERCENT AUTO 3 % (0-6); Hematocrit 34.9 % (33.0-51.0); Hemoglobin 11.3 g/dL (11.5-16.0); IMMATURE GRAN ABSOLUTE AUTO 0.02 K/mm3 (0.00-0.10); IMMATURE GRAN PERCENT AUTO 0 % (0-1); LYMPHOCYTES ABSOLUTE AUTO 0.99 K/mm3 (0.84-5.20); LYMPHOCYTES PERCENT AUTO 19 % (21-46); MONOCYTES ABSOLUTE AUTO 0.59 K/mm3 (0.16-1.47); MONOCYTES PERCENT AUTO 12 % (4-13); Mean Corpuscular HGB 25.1 pg (26.0-34.0); Mean Corpuscular HGB Conc 32.4 g/dL (31.5-36.5); Mean Corpuscular Volume 78 fL (80-100); Mean Platelet Volume 9.5 fL (9.1-12.4); NEUTROPHILS ABSOLUTE AUTO 3.34 K/mm3 (1.96-9.15); NEUTROPHILS PERCENT AUTO 65 % (41-73); Platelet Count 272 K/mm3 (150-400); RDW Coefficient Variation 15.7 % (11.7-14.2); RDW Standard Deviation 44.2 fL (35.1-46.3); White Blood Cell Count 5.12 K/mm3 (4.00-11.30)
[2020-05-28 15:49] LABS: Alanine Aminotransfer (ALT/SGP 38 U/L (12-78); Albumin, Blood 3.4 g/dL (3.4-5.0); Albumin/Globulin Ratio 0.9 (0.8-1.8); Alk Phos 146 U/L (50-136); Anion Gap 6 mmol/L (6-16); Aspartate Aminotrans (AST/SGOT 30 U/L (12-37); Bilirubin, Total 0.3 mg/dL (0.1-1.0); Blood Urea Nitrogen 12 mg/dL (8-24); Bun/Creatinine Ratio 14.4 (12.0-20.0); CO2, Blood 25 mmol/L (21-32); Chloride, Blood 99 mmol/L (98-108); Creatinine, Blood 0.84 mg/dL (0.40-1.00); Globulin, Blood 3.9 g/dL (2.2-4.0); Glomerular Filtration Rate >60 (60-); Glucose, Blood 102 mg/dL (70-99); Potassium, Blood 4.4 mmol/L (3.5-5.5); Sodium, Blood 130 mmol/L (136-145); Total Protein, Blood 7.3 g/dL (6.4-8.2); Troponin I <0.015 ng/mL (0.000-0.040)
[2020-05-28] MEDS ORDERED: METPRE4DP PO (17:11)
[2020-05-28] MEDS ORDERED: Norco 7.5-3251 EACH PO (17:11)
== END 2020-05-28 18:05 | disposition home or self-care (01) ==
LOC: ER 14:33
PROVIDERS: Physician Assistant
DX: M50.122 Cervical disc disorder at C5-C6 level with radiculopathy (principal); M50.123 Cervical disc disorder at C6-C7 level with radiculopathy; I10 Essential (primary) hypertension; E03.9 Hypothyroidism, unspecified; I25.2 Old myocardial infarction; E78.5 Hyperlipidemia, unspecified; Z79.01 Long term (current) use of anticoagulants; Z79.82 Long term (current) use of aspirin; Z79.899 Other long term (current) drug therapy; Z88.2 Allergy status to sulfonamides; Z88.1 Allergy status to other antibiotic agents; Z91.040 Latex allergy status; Z87.891 Personal history of nicotine dependence
CPT/HCPCS: 36415; 71046; 72040; 80053; 84484; 85025; 93005; 93010; 96374; 96375; 99284-25; J1100; J1170

== ENCOUNTER 2020-10-02 17:43 | Emergency (ER) | payer MEDICARE, BC ==
[~2020-10-02] VITALS: Ht 165.1 cm; Wt 115.7 kg
[~2020-10-02 17:43] MED LIST changes: +METPRE4DP PO; +Norco 7.5-3251 EACH PO
[2020-10-02 18:34] LABS: BASOPHILS ABSOLUTE AUTO 0.02 K/mm3 (0.00-0.23); BASOPHILS PERCENT AUTO 0 % (0-2); EOSINOPHILS ABSOLUTE AUTO 0.09 K/mm3 (0.00-0.68); EOSINOPHILS PERCENT AUTO 2 % (0-6); Hematocrit 32.3 % (33.0-51.0); Hemoglobin 10.8 g/dL (11.5-16.0); IMMATURE GRAN ABSOLUTE AUTO 0.02 K/mm3 (0.00-0.10); IMMATURE GRAN PERCENT AUTO 0 % (0-1); LYMPHOCYTES ABSOLUTE AUTO 0.94 K/mm3 (0.84-5.20); LYMPHOCYTES PERCENT AUTO 21 % (21-46); MONOCYTES ABSOLUTE AUTO 0.56 K/mm3 (0.16-1.47); MONOCYTES PERCENT AUTO 12 % (4-13); Mean Corpuscular HGB Conc 33.4 g/dL (31.5-36.5); Mean Corpuscular Volume 87 fL (80-100); Mean Platelet Volume 9.6 fL (9.1-12.4); NEUTROPHILS ABSOLUTE AUTO 2.89 K/mm3 (1.96-9.15); NEUTROPHILS PERCENT AUTO 64 % (41-73); Platelet Count 249 K/mm3 (150-400); RDW Coefficient Variation 12.8 % (11.7-14.2); RDW Standard Deviation 40.5 fL (35.1-46.3); Red Blood Cell Count 3.73 M/mm3 (3.80-5.20); White Blood Cell Count 4.52 K/mm3 (4.00-11.30)
[2020-10-02 18:54] LABS: Alanine Aminotransfer (ALT/SGP 33 U/L (12-78); Albumin, Blood 3.7 g/dL (3.4-5.0); Albumin/Globulin Ratio 1.1 (0.8-1.8); Alk Phos 128 U/L (50-136); Anion Gap 10 mmol/L (6-16); Aspartate Aminotrans (AST/SGOT 31 U/L (12-37); Bilirubin, Total 0.4 mg/dL (0.1-1.0); Blood Urea Nitrogen 10 mg/dL (8-24); Bun/Creatinine Ratio 11.1 (12.0-20.0); CO2, Blood 24 mmol/L (21-32); Calcium, Blood 8.9 mg/dL (8.5-10.1); Chloride, Blood 96 mmol/L (98-108); Globulin, Blood 3.5 g/dL (2.2-4.0); Glomerular Filtration Rate >60 (60-); Glucose, Blood 98 mg/dL (70-99); Potassium, Blood 4.3 mmol/L (3.5-5.5); Sodium, Blood 130 mmol/L (136-145); Total Protein, Blood 7.2 g/dL (6.4-8.2)
[2020-10-02 20:06] LABS: Source, Urine Clean Catch
[2020-10-02 20:14] LABS: Bilirubin, Urine Neg (Neg); Blood, Urine Neg (Neg); Glucose Qualitative, Urine Neg (Neg); Ketones, Urine Neg (Neg); Leukocyte Esterase, Urine Neg (Neg); Nitrite, Urine Neg (Neg); Protein, Urine Neg (Neg); Urobilinogen, Urine NORM (Normal); pH, Urine 6.5 (5.0-8.0)
[2020-10-02 20:20] LABS: Appearance, Urine Clear (Clear); Color, Urine Yellow (P-Yellow)
[2020-10-02 21:10] LABS: Troponin I <0.015 ng/mL (0.000-0.040)
[2020-10-02] MEDS ORDERED: HYDR1TAB94 PO (22:43)
[2020-10-02] MEDS ORDERED: Miralax17 GM PO (22:43)
[2020-10-02] MEDS ORDERED: AMOCLA875 PO (22:43)
[2020-10-02] MEDS ORDERED: ONDA4ODT SL (22:54)
== END 2020-10-02 23:05 | disposition home or self-care (01) ==
LOC: ER 17:43
PROVIDERS: Emergency Medicine
DX: R10.9 Unspecified abdominal pain (principal); R11.2 Nausea with vomiting, unspecified; R53.1 Weakness; S16.1XXA Strain of muscle, fascia and tendon at neck level, initial encounter; I10 Essential (primary) hypertension; E03.9 Hypothyroidism, unspecified; X58.XXXA Exposure to other specified factors, initial encounter
CPT/HCPCS: 36415; 71045; 74176; 80053; 81003; 83690; 83880; 84484; 85025; 93005; 93010; 96374; 96375; 99284-25; A9270; J2405; J3010

== ENCOUNTER 2021-01-21 13:18 | Emergency (ER) | payer MEDICARE, BC ==
[~2021-01-21] VITALS: Ht 165.1 cm; Wt 117.5 kg
[~2021-01-21 13:18] MED LIST changes: +Miralax17 GM PO; +ONDA4ODT SL
[2021-01-21] MEDS ORDERED: Percocet 5-3251 EACH PO (14:41)
[2021-01-21] MEDS ORDERED: METPRE4DP PO (14:41)
[2021-01-21] MEDS ORDERED: Zofran8 MG PO (14:41)
== END 2021-01-21 14:51 | disposition home or self-care (01) ==
LOC: ER 13:18
DX: M75.51 Bursitis of right shoulder (principal); M77.8 Other enthesopathies, not elsewhere classified; I10 Essential (primary) hypertension; Z88.1 Allergy status to other antibiotic agents; Z88.2 Allergy status to sulfonamides; Z88.8 Allergy status to other drugs, medicaments and biological substances; Z91.040 Latex allergy status; Z79.899 Other long term (current) drug therapy; Z79.82 Long term (current) use of aspirin
CPT/HCPCS: 73030; 96372; 99283-25; A9270; J1885

== ENCOUNTER 2021-03-30 15:52 | Emergency (ER) | payer MEDICARE, BC ==
[~2021-03-30] VITALS: Ht 165.1 cm; Wt 117.9 kg
[~2021-03-30 15:52] MED LIST changes: +Percocet 5-3251 EACH PO
[2021-03-30] MEDS ORDERED: CYCLOBENZAPRINE5 MG PO (17:16)
== END 2021-03-30 17:25 | disposition home or self-care (01) ==
LOC: ER 15:52
DX: M62.830 Muscle spasm of back (principal); Z88.2 Allergy status to sulfonamides; Z88.1 Allergy status to other antibiotic agents; Z88.8 Allergy status to other drugs, medicaments and biological substances; Z91.040 Latex allergy status; Z79.899 Other long term (current) drug therapy; Z79.82 Long term (current) use of aspirin; I11.0 Hypertensive heart disease with heart failure; I50.32 Chronic diastolic (congestive) heart failure; E03.9 Hypothyroidism, unspecified; I25.2 Old myocardial infarction; E78.5 Hyperlipidemia, unspecified
CPT/HCPCS: 72100; 96372; 99283-25; A9270; J1885

== ENCOUNTER 2021-05-17 15:35 | Emergency (ER) | payer MEDICARE, BC ==
[~2021-05-17] VITALS: Ht 165.1 cm; Wt 115.7 kg
[~2021-05-17 15:35] MED LIST changes: +CYCLOBENZAPRINE5 MG PO
[2021-05-17 16:41] LABS: BASOPHILS ABSOLUTE AUTO 0.03 K/mm3 (0.00-0.23); BASOPHILS PERCENT AUTO 0 % (0-2); EOSINOPHILS ABSOLUTE AUTO 0.21 K/mm3 (0.00-0.68); EOSINOPHILS PERCENT AUTO 3 % (0-6); Hematocrit 31.7 % (33.0-51.0); Hemoglobin 9.6 g/dL (11.5-16.0); IMMATURE GRAN ABSOLUTE AUTO 0.06 K/mm3 (0.00-0.10); IMMATURE GRAN PERCENT AUTO 1 % (0-1); LYMPHOCYTES ABSOLUTE AUTO 1.31 K/mm3 (0.84-5.20); LYMPHOCYTES PERCENT AUTO 17 % (21-46); MONOCYTES ABSOLUTE AUTO 0.68 K/mm3 (0.16-1.47); MONOCYTES PERCENT AUTO 9 % (4-13); Mean Corpuscular HGB 24.4 pg (26.0-34.0); Mean Corpuscular HGB Conc 30.3 g/dL (31.5-36.5); Mean Corpuscular Volume 81 fL (80-100); Mean Platelet Volume 10.5 fL (9.1-12.4); NEUTROPHILS ABSOLUTE AUTO 5.31 K/mm3 (1.96-9.15); NEUTROPHILS PERCENT AUTO 70 % (41-73); Platelet Count 294 K/mm3 (150-400); RDW Coefficient Variation 14.5 % (11.7-14.2); RDW Standard Deviation 42.7 fL (35.1-46.3); Red Blood Cell Count 3.93 M/mm3 (3.80-5.20)
[2021-05-17 17:16] LABS: Alanine Aminotransfer (ALT/SGP 32 U/L (12-78); Albumin, Blood 3.6 g/dL (3.4-5.0); Albumin/Globulin Ratio 1.2 (0.8-1.8); Alk Phos 143 U/L (50-136); Anion Gap 8 mmol/L (6-16); Aspartate Aminotrans (AST/SGOT 22 U/L (12-37); Bilirubin, Total 0.4 mg/dL (0.1-1.0); Blood Urea Nitrogen 12 mg/dL (8-24); CO2, Blood 24 mmol/L (21-32); Calcium, Blood 9.1 mg/dL (8.5-10.1); Chloride, Blood 103 mmol/L (98-108); Glucose, Blood 119 mg/dL (70-99); Potassium, Blood 4.4 mmol/L (3.5-5.5); Sodium, Blood 135 mmol/L (136-145); Total Protein, Blood 6.6 g/dL (6.4-8.2)
[2021-05-17 17:17] LABS: Bun/Creatinine Ratio 15.4 (12.0-20.0); Creatinine, Blood 0.78 mg/dL (0.40-1.00); Glomerular Filtration Rate >60 (60-)
[2021-05-18 00:13] LABS: Influenza A, PCR NEGATIVE (NEGATIVE); Influenza B, PCR NEGATIVE (NEGATIVE); Resp Syncytial Virus, PCR NEGATIVE (NEGATIVE); SARS-Cov-2 (COVID-19) PCR, MMC NEGATIVE (NEGATIVE)
[2021-05-18] MEDS ORDERED: Prednisone20 MG PO (00:50)
[2021-05-18] MEDS ORDERED: ALBU90OI INH (00:50)
== END 2021-05-18 01:05 | disposition home or self-care (01) ==
LOC: ER 15:35
PROVIDERS: Emergency Medicine; Physician Assistant
DX: J45.901 Unspecified asthma with (acute) exacerbation (principal); I11.0 Hypertensive heart disease with heart failure; I50.32 Chronic diastolic (congestive) heart failure; E03.9 Hypothyroidism, unspecified; I25.2 Old myocardial infarction; Z20.822 Contact with and (suspected) exposure to COVID-19; E78.5 Hyperlipidemia, unspecified; Z88.2 Allergy status to sulfonamides; Z88.1 Allergy status to other antibiotic agents; Z91.040 Latex allergy status; Z88.8 Allergy status to other drugs, medicaments and biological substances; Z79.899 Other long term (current) drug therapy; Z79.82 Long term (current) use of aspirin
CPT/HCPCS: 0241U; 36415; 71046; 80053; 83880; 84443; 84484; 85025; 93005; 93010; 99285-25; A9270

== ENCOUNTER → 2021-06-15 | Outpatient (CLI) | payer MEDICARE, BC ==
[~2021-06-15] MED LIST changes: +ALBU90OI INH; +Prednisone20 MG PO
[2021-06-15 16:31] LABS: BASOPHILS ABSOLUTE AUTO 0.03 K/mm3 (0.00-0.23); BASOPHILS PERCENT AUTO 1 % (0-2); EOSINOPHILS ABSOLUTE AUTO 0.11 K/mm3 (0.00-0.68); EOSINOPHILS PERCENT AUTO 2 % (0-6); Hematocrit 31.4 % (33.0-51.0); Hemoglobin 10.1 g/dL (11.5-16.0); IMMATURE GRAN ABSOLUTE AUTO 0.02 K/mm3 (0.00-0.10); IMMATURE GRAN PERCENT AUTO 0 % (0-1); LYMPHOCYTES ABSOLUTE AUTO 1.04 K/mm3 (0.84-5.20); LYMPHOCYTES PERCENT AUTO 22 % (21-46); MONOCYTES PERCENT AUTO 13 % (4-13); Mean Corpuscular HGB 24.6 pg (26.0-34.0); Mean Corpuscular HGB Conc 32.2 g/dL (31.5-36.5); Mean Corpuscular Volume 76 fL (80-100); Mean Platelet Volume 9.5 fL (9.1-12.4); NEUTROPHILS ABSOLUTE AUTO 2.99 K/mm3 (1.96-9.15); NEUTROPHILS PERCENT AUTO 63 % (41-73); Platelet Count 246 K/mm3 (150-400); RDW Standard Deviation 44.5 fL (35.1-46.3); Red Blood Cell Count 4.11 M/mm3 (3.80-5.20); White Blood Cell Count 4.79 K/mm3 (4.00-11.30)
[2021-06-15 16:36] LABS: Calcium, Blood 9.1 mg/dL (8.5-10.1); Potassium, Blood 4.7 mmol/L (3.5-5.5)
[2021-06-15 17:18] LABS: Percent Saturation 6.8 % (15.0-50.0)
== END | disposition home or self-care (01) ==
LOC: LAB 16:27 → LAB SHORT 16:27
PROVIDERS: Chiropractor
DX: R07.9 Chest pain, unspecified (principal); R06.00 Dyspnea, unspecified; D50.9 Iron deficiency anemia, unspecified
CPT/HCPCS: 80048; 82728; 83540; 83550; 83880; 84484; 85025

== ENCOUNTER 2021-06-23 12:22 | Emergency (ER) | payer MEDICARE, BC ==
[~2021-06-23] VITALS: Ht 165.1 cm; Wt 117.9 kg
[2021-06-23 13:02] LABS: BASOPHILS ABSOLUTE AUTO 0.03 K/mm3 (0.00-0.23); BASOPHILS PERCENT AUTO 1 % (0-2); EOSINOPHILS ABSOLUTE AUTO 0.24 K/mm3 (0.00-0.68); EOSINOPHILS PERCENT AUTO 5 % (0-6); Hematocrit 31.1 % (33.0-51.0); Hemoglobin 9.8 g/dL (11.5-16.0); IMMATURE GRAN ABSOLUTE AUTO 0.05 K/mm3 (0.00-0.10); IMMATURE GRAN PERCENT AUTO 1 % (0-1); LYMPHOCYTES ABSOLUTE AUTO 0.91 K/mm3 (0.84-5.20); LYMPHOCYTES PERCENT AUTO 19 % (21-46); MONOCYTES ABSOLUTE AUTO 0.52 K/mm3 (0.16-1.47); MONOCYTES PERCENT AUTO 11 % (4-13); Mean Corpuscular HGB 24.1 pg (26.0-34.0); Mean Corpuscular HGB Conc 31.5 g/dL (31.5-36.5); Mean Corpuscular Volume 77 fL (80-100); Mean Platelet Volume 9.8 fL (9.1-12.4); NEUTROPHILS ABSOLUTE AUTO 2.99 K/mm3 (1.96-9.15); NEUTROPHILS PERCENT AUTO 63 % (41-73); Platelet Count 266 K/mm3 (150-400); RDW Coefficient Variation 15.3 % (11.7-14.2); RDW Standard Deviation 42.8 fL (35.1-46.3); Red Blood Cell Count 4.06 M/mm3 (3.80-5.20); White Blood Cell Count 4.74 K/mm3 (4.00-11.30)
[2021-06-23 13:26] LABS: Alanine Aminotransfer (ALT/SGP 33 U/L (12-78); Albumin, Blood 3.1 g/dL (3.4-5.0); Albumin/Globulin Ratio 0.8 (0.8-1.8); Alk Phos 142 U/L (50-136); Anion Gap 6 mmol/L (6-16); Aspartate Aminotrans (AST/SGOT 21 U/L (12-37); Bilirubin, Total 0.2 mg/dL (0.1-1.0); Blood Urea Nitrogen 16 mg/dL (8-24); Bun/Creatinine Ratio 20.6 (12.0-20.0); CO2, Blood 27 mmol/L (21-32); Calcium, Blood 8.8 mg/dL (8.5-10.1); Chloride, Blood 94 mmol/L (98-108); Creatinine, Blood 0.78 mg/dL (0.40-1.00); Globulin, Blood 3.7 g/dL (2.2-4.0); Glomerular Filtration Rate >60 (60-); Glucose, Blood 313 mg/dL (70-99); Potassium, Blood 4.7 mmol/L (3.5-5.5); Sodium, Blood 127 mmol/L (136-145); Total Protein, Blood 6.8 g/dL (6.4-8.2)
[2021-06-23] MEDS ORDERED: CATAPRES0.1 MG PO (14:10)
[2021-06-23] MEDS ORDERED: FAMO20 PO (16:27)
[2021-06-23] MEDS ORDERED: ONDA4ODT MM (16:27)
== END 2021-06-23 17:55 | disposition home or self-care (01) ==
LOC: ER 12:22
PROVIDERS: Physician Assistant
DX: E87.1 Hypo-osmolality and hyponatremia (principal); R10.13 Epigastric pain; R07.9 Chest pain, unspecified; D64.9 Anemia, unspecified; R73.9 Hyperglycemia, unspecified; I25.2 Old myocardial infarction; I11.0 Hypertensive heart disease with heart failure; I50.32 Chronic diastolic (congestive) heart failure; Z79.899 Other long term (current) drug therapy; Z88.2 Allergy status to sulfonamides; Z91.040 Latex allergy status
CPT/HCPCS: 36415; 71046; 80053; 83690; 83880; 84484; 85025; 93005; 93010; 96374; 96375; 99285-25; A9270; J2550; J2765; J7030

== ENCOUNTER 2021-09-26 14:03 | Emergency (ER) | payer MEDICARE, BC ==
[~2021-09-26] VITALS: Ht 165.1 cm; Wt 111.1 kg
[~2021-09-26 14:03] MED LIST changes: +CATAPRES0.1 MG PO; +FAMO20 PO; +ONDA4ODT MM
[2021-09-26 14:46] LABS: BASOPHILS ABSOLUTE AUTO 0.02 K/mm3 (0.00-0.23); BASOPHILS PERCENT AUTO 0 % (0-2); EOSINOPHILS ABSOLUTE AUTO 0.09 K/mm3 (0.00-0.68); EOSINOPHILS PERCENT AUTO 2 % (0-6); Hemoglobin 10.1 g/dL (11.5-16.0); IMMATURE GRAN ABSOLUTE AUTO 0.02 K/mm3 (0.00-0.10); IMMATURE GRAN PERCENT AUTO 0 % (0-1); LYMPHOCYTES ABSOLUTE AUTO 1.09 K/mm3 (0.84-5.20); LYMPHOCYTES PERCENT AUTO 19 % (21-46); MONOCYTES PERCENT AUTO 9 % (4-13); Mean Corpuscular HGB 22.7 pg (26.0-34.0); Mean Corpuscular HGB Conc 31.6 g/dL (31.5-36.5); Mean Corpuscular Volume 72 fL (80-100); Mean Platelet Volume 10.1 fL (9.1-12.4); NEUTROPHILS ABSOLUTE AUTO 4.05 K/mm3 (1.96-9.15); NEUTROPHILS PERCENT AUTO 70 % (41-73); Platelet Count 291 K/mm3 (150-400); RDW Coefficient Variation 15.4 % (11.7-14.2); RDW Standard Deviation 39.5 fL (35.1-46.3); Red Blood Cell Count 4.45 M/mm3 (3.80-5.20); White Blood Cell Count 5.77 K/mm3 (4.00-11.30)
[2021-09-26 15:00] LABS: Albumin, Blood 3.5 g/dL (3.4-5.0); Bilirubin, Total 0.3 mg/dL (0.1-1.0); Bun/Creatinine Ratio 19.5 (12.0-20.0); Calcium, Blood 8.9 mg/dL (8.5-10.1); Creatinine, Blood 0.87 mg/dL (0.40-1.00); Globulin, Blood 3.5 g/dL (2.2-4.0); Potassium, Blood 4.6 mmol/L (3.5-5.5)
[2021-09-26 15:39] LABS: Influenza A, PCR NEGATIVE (NEGATIVE); Influenza B, PCR NEGATIVE (NEGATIVE); Resp Syncytial Virus, PCR NEGATIVE (NEGATIVE); SARS-Cov-2 (COVID-19) PCR, MMC NEGATIVE (NEGATIVE)
[2021-09-26] MEDS ORDERED: METF500 PO (19:04)
== END 2021-09-26 19:52 | disposition home or self-care (01) ==
LOC: ER 14:03
PROVIDERS: Physician Assistant
DX: E11.65 Type 2 diabetes mellitus with hyperglycemia (principal); E86.0 Dehydration; R07.9 Chest pain, unspecified; I11.0 Hypertensive heart disease with heart failure; I50.32 Chronic diastolic (congestive) heart failure; E03.9 Hypothyroidism, unspecified; Z20.822 Contact with and (suspected) exposure to COVID-19; Z95.5 Presence of coronary angioplasty implant and graft; Z79.899 Other long term (current) drug therapy; Z79.82 Long term (current) use of aspirin; Z79.01 Long term (current) use of anticoagulants; Z79.84 Long term (current) use of oral hypoglycemic drugs
CPT/HCPCS: 0241U; 36415; 71045; 80053; 82947; 83036; 83690; 83880; 84484; 85025; A9270; J1815; J2405; J7030

== ENCOUNTER 2021-10-05 14:21 | Emergency (ER) | payer MEDICARE, BC ==
[~2021-10-05] VITALS: Ht 165.1 cm; Wt 113.4 kg
[~2021-10-05 14:21] MED LIST changes: +METF500 PO
[2021-10-05 15:24] LABS: BASOPHILS ABSOLUTE AUTO 0.03 K/mm3 (0.00-0.23); BASOPHILS PERCENT AUTO 1 % (0-2); EOSINOPHILS ABSOLUTE AUTO 0.06 K/mm3 (0.00-0.68); EOSINOPHILS PERCENT AUTO 1 % (0-6); Hematocrit 32.9 % (33.0-51.0); Hemoglobin 10.4 g/dL (11.5-16.0); IMMATURE GRAN ABSOLUTE AUTO 0.01 K/mm3 (0.00-0.10); IMMATURE GRAN PERCENT AUTO 0 % (0-1); LYMPHOCYTES ABSOLUTE AUTO 1.27 K/mm3 (0.84-5.20); LYMPHOCYTES PERCENT AUTO 22 % (21-46); MONOCYTES ABSOLUTE AUTO 0.55 K/mm3 (0.16-1.47); MONOCYTES PERCENT AUTO 10 % (4-13); Mean Corpuscular HGB 22.6 pg (26.0-34.0); Mean Corpuscular HGB Conc 31.6 g/dL (31.5-36.5); Mean Corpuscular Volume 71 fL (80-100); Mean Platelet Volume 10.3 fL (9.1-12.4); NEUTROPHILS ABSOLUTE AUTO 3.84 K/mm3 (1.96-9.15); NEUTROPHILS PERCENT AUTO 67 % (41-73); Platelet Count 298 K/mm3 (150-400); RDW Coefficient Variation 15.9 % (11.7-14.2); RDW Standard Deviation 40.7 fL (35.1-46.3); Red Blood Cell Count 4.61 M/mm3 (3.80-5.20); White Blood Cell Count 5.76 K/mm3 (4.00-11.30)
[2021-10-05 15:44] LABS: Albumin, Blood 3.7 g/dL (3.4-5.0); Albumin/Globulin Ratio 0.9 (0.8-1.8); Bilirubin, Total 0.4 mg/dL (0.1-1.0); Bun/Creatinine Ratio 9.7 (12.0-20.0); Calcium, Blood 9.2 mg/dL (8.5-10.1); Creatinine, Blood 0.82 mg/dL (0.40-1.00); Globulin, Blood 3.9 g/dL (2.2-4.0); Potassium, Blood 4.2 mmol/L (3.5-5.5); Total Protein, Blood 7.6 g/dL (6.4-8.2)
[2021-10-05 15:48] LABS: Thyroid Stimulating Hormone 0.848 uIU/mL (0.360-4.800)
[2021-10-05 16:02] LABS: Creatine Kinase MB 1.5 ng/mL (0.0-3.6); Creatine Kinase MB Index 0.7 (0.0-4.0)
[2021-10-05 18:33] LABS: Source, Urine Clean Catch
[2021-10-05 18:38] LABS: Bilirubin, Urine Neg (Neg); Blood, Urine 1+ (Neg); Glucose Qualitative, Urine Neg (Neg); Ketones, Urine Neg (Neg); Leukocyte Esterase, Urine 2+ (Neg); Nitrite, Urine Neg (Neg); Protein, Urine Neg (Neg); Urobilinogen, Urine NORM (Normal)
[2021-10-05 18:47] LABS: Appearance, Urine Hazy (Clear); Color, Urine Pale Yellow (P-Yellow)
[2021-10-05 18:49] LABS: Bacteria Mod /hpf; Other Crystals Mod /hpf; Red Blood Cells, Urine 0-2 /hpf (0-2); Squamous Epithelial Cells Few /hpf (Few)
[2021-10-05] MEDS ORDERED: ONDA4ODT MM (20:08)
[2021-10-05] MEDS ORDERED: CEFD300 PO (20:20)
[2021-10-05] MEDS ORDERED: FURO20 PO (20:20)
== END 2021-10-05 20:55 | disposition home or self-care (01) ==
LOC: ER 14:21
PROVIDERS: Physician Assistant
DX: R07.89 Other chest pain (principal); K52.1 Toxic gastroenteritis and colitis; R11.0 Nausea; T38.3X5A Adverse effect of insulin and oral hypoglycemic [antidiabetic] drugs, initial encounter; N39.0 Urinary tract infection, site not specified; Y92.9 Unspecified place or not applicable; I11.0 Hypertensive heart disease with heart failure; I50.32 Chronic diastolic (congestive) heart failure; E11.9 Type 2 diabetes mellitus without complications; E03.9 Hypothyroidism, unspecified; Z79.899 Other long term (current) drug therapy; Z79.82 Long term (current) use of aspirin; Z79.84 Long term (current) use of oral hypoglycemic drugs; Z79.01 Long term (current) use of anticoagulants; Z88.8 Allergy status to other drugs, medicaments and biological substances; Z88.2 Allergy status to sulfonamides; Z88.1 Allergy status to other antibiotic agents; Z91.040 Latex allergy status
CPT/HCPCS: 36415; 71046; 80053; 81001; 82550; 82553; 83690; 83880; 84443; 84484; 85025; 87086; 93005; 93010; 96374; 96375; 99285-25; J0696; J1885; J1940; J2405; J2765

== ENCOUNTER → 2021-11-27 | Outpatient (CLI) | payer MEDICARE, BC ==
[~2021-11-27] MED LIST changes: +CEFD300 PO
[2021-11-27 16:14] LABS: BASOPHILS ABSOLUTE AUTO 0.03 K/mm3 (0.00-0.23); BASOPHILS PERCENT AUTO 1 % (0-2); EOSINOPHILS ABSOLUTE AUTO 0.15 K/mm3 (0.00-0.68); EOSINOPHILS PERCENT AUTO 3 % (0-6); Hematocrit 28.2 % (33.0-51.0); Hemoglobin 8.8 g/dL (11.5-16.0); IMMATURE GRAN ABSOLUTE AUTO 0.03 K/mm3 (0.00-0.10); IMMATURE GRAN PERCENT AUTO 1 % (0-1); LYMPHOCYTES ABSOLUTE AUTO 1.11 K/mm3 (0.84-5.20); LYMPHOCYTES PERCENT AUTO 19 % (21-46); MONOCYTES ABSOLUTE AUTO 0.56 K/mm3 (0.16-1.47); MONOCYTES PERCENT AUTO 10 % (4-13); Mean Corpuscular HGB 22.4 pg (26.0-34.0); Mean Corpuscular HGB Conc 31.2 g/dL (31.5-36.5); Mean Corpuscular Volume 72 fL (80-100); Mean Platelet Volume 10.1 fL (9.1-12.4); NEUTROPHILS ABSOLUTE AUTO 4.04 K/mm3 (1.96-9.15); NEUTROPHILS PERCENT AUTO 68 % (41-73); Platelet Count 313 K/mm3 (150-400); RDW Coefficient Variation 16.7 % (11.7-14.2); RDW Standard Deviation 42.7 fL (35.1-46.3); Red Blood Cell Count 3.93 M/mm3 (3.80-5.20); White Blood Cell Count 5.92 K/mm3 (4.00-11.30)
[2021-11-27 16:27] LABS: Albumin, Blood 3.4 g/dL (3.4-5.0); Bilirubin, Total 0.3 mg/dL (0.1-1.0); Bun/Creatinine Ratio 11.9 (12.0-20.0); Calcium, Blood 8.6 mg/dL (8.5-10.1); Creatinine, Blood 1.01 mg/dL (0.40-1.00); Globulin, Blood 3.5 g/dL (2.2-4.0); Potassium, Blood 4.1 mmol/L (3.5-5.5); Total Protein, Blood 6.9 g/dL (6.4-8.2)
[2021-11-27 17:56] LABS: Percent Saturation 5.4 % (15.0-50.0)
== END ==
LOC: LAB 16:11 → LAB SHORT 16:11
PROVIDERS: Physician Assistant
DX: D50.9 Iron deficiency anemia, unspecified (principal); N93.9 Abnormal uterine and vaginal bleeding, unspecified
CPT/HCPCS: 80053; 82728; 83540; 83550; 85025

== ENCOUNTER → 2022-03-18 | Outpatient (CLI) | payer MEDICARE, BC ==
[~2022-03-18] MED LIST changes: +Glucotrol Xl5 MG PO; +OMEPRAZOLE MAGN20 MG PO
[2022-03-18 14:39] LABS: Source, Urine Voided
[2022-03-18 17:46] LABS: Appearance, Urine Clear (Clear); Bilirubin, Urine Neg (Neg); Blood, Urine Neg (Neg); Color, Urine Yellow (P-Yellow); Glucose Qualitative, Urine 2+ (Neg); Ketones, Urine Neg (Neg); Leukocyte Esterase, Urine Neg (Neg); Nitrite, Urine Neg (Neg); Protein, Urine Neg (Neg); Specific Gravity, Urine 1.015 (1.003-1.022); Urobilinogen, Urine NORM (Normal)
== END | disposition home or self-care (01) ==
LOC: LAB SHORT 10:52 → LAB 10:52
PROVIDERS: Internal Medicine Hematology & Oncology
DX: N18.31 Chronic kidney disease, stage 3a (principal); D50.0 Iron deficiency anemia secondary to blood loss (chronic); M54.50 Low back pain, unspecified
CPT/HCPCS: 81003

== ENCOUNTER → 2022-05-17 | Outpatient (CLI) | payer MEDICARE, BC ==
[2022-05-17 14:18] LABS: Percent Saturation 26.2 % (15.0-50.0)
== END | disposition home or self-care (01) ==
LOC: LAB 09:49 → LAB SHORT 09:49
PROVIDERS: Internal Medicine Hematology & Oncology
DX: D50.0 Iron deficiency anemia secondary to blood loss (chronic) (principal)
CPT/HCPCS: 82728; 83540; 83550

== ENCOUNTER 2022-09-22 12:27 | Emergency (ER) | payer OTHER, MEDICARE, BC ==
[~2022-09-22] VITALS: Ht 165.1 cm; Wt 108.9 kg
[~2022-09-22 12:27] MED LIST changes: +DRAMAMINE25 M1 PO; +Reglan10 MG PO
[2022-09-22] MEDS ORDERED: HYDR1TAB94 PO (16:06)
[2022-09-22 16:45] VITALS: BP 150/90
== END 2022-09-22 17:02 | disposition home or self-care (01) ==
LOC: ER 12:27
DX: S09.90XA Unspecified injury of head, initial encounter (principal); M25.512 Pain in left shoulder; M79.672 Pain in left foot; W01.10XA Fall on same level from slipping, tripping and stumbling with subsequent striking against unspecified object, initial encounter; Z88.2 Allergy status to sulfonamides; Z88.8 Allergy status to other drugs, medicaments and biological substances; Z88.1 Allergy status to other antibiotic agents; Z91.040 Latex allergy status; Z79.899 Other long term (current) drug therapy; Z79.82 Long term (current) use of aspirin; I11.0 Hypertensive heart disease with heart failure; E11.9 Type 2 diabetes mellitus without complications; I50.32 Chronic diastolic (congestive) heart failure; E03.9 Hypothyroidism, unspecified; I48.91 Unspecified atrial fibrillation
CPT/HCPCS: 70450; 73060; 73610; 73630; 96372; 99284-25; A9270; J1885

== ENCOUNTER 2022-12-11 10:49 | Emergency (ER) | payer MEDICARE, BC ==
[~2022-12-11] VITALS: Ht 165.1 cm; Wt 73.5 kg
[2022-12-11] MEDS ORDERED: EUTHYROX75 MC1 PO (11:28)
[2022-12-11] MEDS ORDERED: FOLI1 PO (11:28)
[2022-12-11] MEDS ORDERED: DRAMAMINE25 M3 PO ×2 (11:29→11:30)
[2022-12-11] MEDS ORDERED: MESALAMINE800 M7 PO (11:29)
[2022-12-11] MEDS ORDERED: Ativan1 MG PO (11:30)
[2022-12-11] MEDS ORDERED: NEURONTIN40010 PO (11:31)
[2022-12-11] MEDS ORDERED: Ventolin/Prove6.7 GM INH (11:31)
[2022-12-11 11:53] LABS: Source, Urine Clean Catch
[2022-12-11 11:53] LABS: BASOPHILS ABSOLUTE AUTO 0.04 K/mm3 (0.00-0.23); BASOPHILS PERCENT AUTO 1 % (0-2); EOSINOPHILS PERCENT AUTO 2 % (0-6); Hematocrit 36.1 % (33.0-51.0); Hemoglobin 12.5 g/dL (11.5-16.0); IMMATURE GRAN ABSOLUTE AUTO 0.05 K/mm3 (0.00-0.10); IMMATURE GRAN PERCENT AUTO 1 % (0-1); LYMPHOCYTES ABSOLUTE AUTO 0.81 K/mm3 (0.84-5.20); LYMPHOCYTES PERCENT AUTO 15 % (21-46); MONOCYTES ABSOLUTE AUTO 0.67 K/mm3 (0.16-1.47); MONOCYTES PERCENT AUTO 12 % (4-13); Mean Corpuscular HGB 31.3 pg (26.0-34.0); Mean Corpuscular HGB Conc 34.6 g/dL (31.5-36.5); Mean Corpuscular Volume 91 fL (80-100); Mean Platelet Volume 9.6 fL (9.1-12.4); NEUTROPHILS ABSOLUTE AUTO 3.72 K/mm3 (1.96-9.15); NEUTROPHILS PERCENT AUTO 69 % (41-73); Platelet Count 186 K/mm3 (150-400); RDW Coefficient Variation 13.1 % (11.7-14.2); RDW Standard Deviation 43.2 fL (35.1-46.3); Red Blood Cell Count 3.99 M/mm3 (3.80-5.20); White Blood Cell Count 5.39 K/mm3 (4.00-11.30)
[2022-12-11 12:06] LABS: Albumin, Blood 3.5 g/dL (3.4-5.0); Albumin/Globulin Ratio 1.1 (0.8-1.8); Bilirubin, Total 0.3 mg/dL (0.1-1.0); Calcium, Blood 8.7 mg/dL (8.5-10.1); Creatinine, Blood 0.8 mg/dL (0.40-1.00); Globulin, Blood 3.2 g/dL (2.2-4.0); Magnesium, Blood 1.9 mg/dL (1.6-2.4); Potassium, Blood 4.5 mmol/L (3.5-5.5); Total Protein, Blood 6.7 g/dL (6.4-8.2)
[2022-12-11 12:14] LABS: Appearance, Urine Clear (Clear); Bilirubin, Urine Neg (Neg); Blood, Urine 1+ (Neg); Color, Urine Yellow (P-Yellow); Glucose Qualitative, Urine 3+ (Neg); Ketones, Urine Neg (Neg); Leukocyte Esterase, Urine Neg (Neg); Nitrite, Urine Neg (Neg); Protein, Urine 1+ (Neg); Specific Gravity, Urine 1.015 (1.003-1.022); Urobilinogen, Urine NORM (Normal)
[2022-12-11 12:21] LABS: Squamous Epithelial Cells Mod /hpf (Few)
[2022-12-11 12:23] LABS: Bacteria Not Seen /hpf; Renal Epithelial Rare /hpf (0-Rare); Transitional Epithelial Cells Few /hpf (0-Rare); White Blood Cells, Urine 0-2 /hpf (0-5)
[2022-12-11 13:15] VITALS: BP 159/88
[2022-12-11] MEDS ORDERED: HYDR1TAB94 PO (13:16)
== END 2022-12-11 13:45 | disposition home or self-care (01) ==
LOC: ER 10:49
PROVIDERS: Emergency Medicine; Physician Assistant
DX: M54.32 Sciatica, left side (principal); I25.2 Old myocardial infarction; I11.0 Hypertensive heart disease with heart failure; I50.32 Chronic diastolic (congestive) heart failure; E03.9 Hypothyroidism, unspecified; I48.91 Unspecified atrial fibrillation; E11.9 Type 2 diabetes mellitus without complications; Z88.2 Allergy status to sulfonamides; Z88.1 Allergy status to other antibiotic agents; Z91.040 Latex allergy status; Z88.8 Allergy status to other drugs, medicaments and biological substances; Z79.01 Long term (current) use of anticoagulants; Z79.82 Long term (current) use of aspirin; Z79.84 Long term (current) use of oral hypoglycemic drugs; Z79.899 Other long term (current) drug therapy
CPT/HCPCS: 74176; 80053; 81001; 83735; 85025; 93005; 93010; 96374; 99284-25; J1170

== ENCOUNTER → 2022-12-22 | Outpatient (CLI) | payer MEDICARE, BC ==
[~2022-12-22] MED LIST changes: +DRAMAMINE25 M3 PO; +EUTHYROX75 MC1 PO; +FOLI1 PO; +MESALAMINE800 M7 PO; +NEURONTIN40010 PO; +Ventolin/Prove6.7 GM INH
[2022-12-22 17:35] LABS: BASOPHILS ABSOLUTE AUTO 0.04 K/mm3 (0.00-0.23); BASOPHILS PERCENT AUTO 1 % (0-2); EOSINOPHILS ABSOLUTE AUTO 0.12 K/mm3 (0.00-0.68); EOSINOPHILS PERCENT AUTO 3 % (0-6); Hematocrit 34.6 % (33.0-51.0); IMMATURE GRAN ABSOLUTE AUTO 0.03 K/mm3 (0.00-0.10); IMMATURE GRAN PERCENT AUTO 1 % (0-1); LYMPHOCYTES PERCENT AUTO 26 % (21-46); MONOCYTES ABSOLUTE AUTO 0.62 K/mm3 (0.16-1.47); MONOCYTES PERCENT AUTO 13 % (4-13); Mean Corpuscular HGB 31.7 pg (26.0-34.0); Mean Corpuscular HGB Conc 34.7 g/dL (31.5-36.5); Mean Corpuscular Volume 91 fL (80-100); Mean Platelet Volume 10.4 fL (9.1-12.4); NEUTROPHILS ABSOLUTE AUTO 2.62 K/mm3 (1.96-9.15); NEUTROPHILS PERCENT AUTO 57 % (41-73); Platelet Count 191 K/mm3 (150-400); RDW Coefficient Variation 13.1 % (11.7-14.2); RDW Standard Deviation 43.8 fL (35.1-46.3); Red Blood Cell Count 3.79 M/mm3 (3.80-5.20); White Blood Cell Count 4.63 K/mm3 (4.00-11.30)
[2022-12-22 17:56] LABS: Percent Saturation 41.1 % (15.0-50.0)
== END | disposition home or self-care (01) ==
LOC: LAB 15:00 → LAB SHORT 15:00
PROVIDERS: Internal Medicine Hematology & Oncology
DX: D50.0 Iron deficiency anemia secondary to blood loss (chronic) (principal)
CPT/HCPCS: 82728; 83540; 83550; 85025

== ENCOUNTER 2023-01-09 16:45 | Emergency (ER) | payer OTHER, MEDICARE, BC ==
[~2023-01-09] VITALS: Ht 165.1 cm; Wt 118.8 kg
[2023-01-09 17:15] VITALS: BP 177/103
[2023-01-09] MEDS ORDERED: Percocet 5-3251 EACH PO (19:57)
[2023-01-09] MEDS ORDERED: CRUTCH2 XX (20:28)
== END 2023-01-09 20:55 | disposition home or self-care (01) ==
LOC: ER 16:45
DX: S92.345A Nondisplaced fracture of fourth metatarsal bone, left foot, initial encounter for closed fracture (principal); I11.0 Hypertensive heart disease with heart failure; I50.32 Chronic diastolic (congestive) heart failure; E11.9 Type 2 diabetes mellitus without complications; E03.9 Hypothyroidism, unspecified; I25.2 Old myocardial infarction; I48.91 Unspecified atrial fibrillation; W01.0XXA Fall on same level from slipping, tripping and stumbling without subsequent striking against object, initial encounter; Y92.830 Public park as the place of occurrence of the external cause; Z88.1 Allergy status to other antibiotic agents; Z88.2 Allergy status to sulfonamides; Z88.8 Allergy status to other drugs, medicaments and biological substances; Z91.040 Latex allergy status; Z79.890 Hormone replacement therapy; Z79.899 Other long term (current) drug therapy; Z79.01 Long term (current) use of anticoagulants; Z79.84 Long term (current) use of oral hypoglycemic drugs
CPT/HCPCS: 70450; 73630; 96372; 99284-25; A9270; J1885

== ENCOUNTER 2023-01-13 12:07 | Emergency (ER) | payer MEDICARE, BC ==
[~2023-01-13] VITALS: Ht 165.1 cm; Wt 118.8 kg
[~2023-01-13 12:07] MED LIST changes: +CRUTCH2 XX
[2023-01-13 12:12] VITALS: BP 174/101
[2023-01-13] MEDS ORDERED: ONDA4ODT MM (12:59)
[2023-01-13] MEDS ORDERED: Percocet 5-3251 EACH PO (12:59)
== END 2023-01-13 13:17 | disposition home or self-care (01) ==
LOC: ER 12:07
DX: S92.342A Displaced fracture of fourth metatarsal bone, left foot, initial encounter for closed fracture (principal); E11.9 Type 2 diabetes mellitus without complications; E03.9 Hypothyroidism, unspecified; I25.2 Old myocardial infarction; I11.0 Hypertensive heart disease with heart failure; I50.32 Chronic diastolic (congestive) heart failure; I48.91 Unspecified atrial fibrillation; Z88.2 Allergy status to sulfonamides; Z88.1 Allergy status to other antibiotic agents; Z91.040 Latex allergy status; Z88.8 Allergy status to other drugs, medicaments and biological substances; Z79.01 Long term (current) use of anticoagulants; Z79.899 Other long term (current) drug therapy; Z87.891 Personal history of nicotine dependence; W19.XXXA Unspecified fall, initial encounter
CPT/HCPCS: 96372; 99283-25; J1885

== ENCOUNTER 2023-04-26 18:12 | Inpatient (IN) | payer MEDICARE, BC ==
[~2023-04-26] VITALS: Ht 172.7 cm; Wt 111.1 kg
[~2023-04-26 18:12] MED LIST changes: -ALUM-MAG HYDROX30 M2 PO
[2023-04-26] MEDS ORDERED: CATAPRES0.1 MG PO (22:26)
[2023-04-27] VITALS (8 sets, daily range): BP systolic 135–178; BP diastolic 74–113
[2023-04-27 02:16] LABS: BASOPHILS ABSOLUTE AUTO 0.04 K/mm3 (0.00-0.23); BASOPHILS PERCENT AUTO 1 % (0-2); EOSINOPHILS ABSOLUTE AUTO 0.12 K/mm3 (0.00-0.68); EOSINOPHILS PERCENT AUTO 2 % (0-6); Hematocrit 38.8 % (33.0-51.0); Hemoglobin 13.7 g/dL (11.5-16.0); IMMATURE GRAN ABSOLUTE AUTO 0.03 K/mm3 (0.00-0.10); IMMATURE GRAN PERCENT AUTO 1 % (0-1); LYMPHOCYTES ABSOLUTE AUTO 1.55 K/mm3 (0.84-5.20); LYMPHOCYTES PERCENT AUTO 26 % (21-46); MONOCYTES ABSOLUTE AUTO 0.74 K/mm3 (0.16-1.47); MONOCYTES PERCENT AUTO 12 % (4-13); Mean Corpuscular HGB 31.8 pg (26.0-34.0); Mean Corpuscular HGB Conc 35.3 g/dL (31.5-36.5); Mean Corpuscular Volume 90 fL (80-100); Mean Platelet Volume 9.9 fL (9.1-12.4); NEUTROPHILS ABSOLUTE AUTO 3.61 K/mm3 (1.96-9.15); NEUTROPHILS PERCENT AUTO 59 % (41-73); Platelet Count 200 K/mm3 (150-400); RDW Coefficient Variation 11.9 % (11.7-14.2); RDW Standard Deviation 39.1 fL (35.1-46.3); Red Blood Cell Count 4.31 M/mm3 (3.80-5.20); White Blood Cell Count 6.09 K/mm3 (4.00-11.30)
[2023-04-27 03:05] LABS: Albumin, Blood 3.6 g/dL (3.4-5.0); Albumin/Globulin Ratio 1.1 (0.8-1.8); Bilirubin, Total 0.7 mg/dL (0.1-1.0); Bun/Creatinine Ratio 17.9 (12.0-20.0); Calcium, Blood 9.1 mg/dL (8.5-10.1); Creatinine, Blood 0.67 mg/dL (0.40-1.00); Globulin, Blood 3.4 g/dL (2.2-4.0); Potassium, Blood 3.8 mmol/L (3.5-5.5)
--- NOTE | 2023-04-27 06:48 | NUR ---
SHIFT SUMMARY PATIENT ARRIVED TO PCU 04 VIA STRETCHER. PATIENT IS ALERT AND ORIENTED X4. IS ABLE TO TRANSFER TO THE BEDSIDE COMMODE WITH MINIMAL ASSISTANCE. MEDICATED PER EMAR FOR ABDOMINAL PAIN THAT IS TENDER TO PALPATION. PATIENT DENIES CHEST PAIN/PRESSURE AND SHORTNESS OF BREATH. IS ON ROOM AIR WITH SPO2 >90%. BLOOD PRESSURE TRENDING DOWN, DID NOT HAVE TO ADMINISTER PRN HYDRALAZINE, SINUS DMITRIY ON TELE. WILL CONTINUE TO MONITOR. CALL LIGHT WITHIN REACH.
--- NOTE | 2023-04-27 16:05 | NUR ---
ASSUMED CARE OF PT AT 0700 THIS AM. SEE DOCUMENTED VS AND ASSESSMENT. ECHO COMPLETED THIS AM AND RENAL US COMPLETED THIS AFTERNOON. TROPONINS HAVE REMAINED ABOUT THE SAME, PT HAS DENIED CHEST PAIN OR PRESSURE. PT RESTING IN BED MOST OF THE DAY WITH NO COMPLAINTS. PT MOVED FROM [facility] TO [facility] TO FACILITATE MAINTENCE WORK. AT APROX 1500 PT C/O DIZZINESS. BP 172/113. PT STATES THIS DIZZINESS CAME ON QUICKLY WITHOUT ANY STIMULATION OR FACTORS PRIOR TO IT. PT MEDICATED W HYDRALIZINE PER MD ORDER, WITH BP DECREASING TO 139/86 BY 1527. PT REPORTS HER DIZZINESS HAS RESOLVED WELL. PT HAS NO OTHER COMPLAINTS AND IS VISITING WITH HER AT BEDSIDE. CALL LIGHT IN REACH. WILL CONTINUE TO MONITOR.
--- NOTE | 2023-04-27 17:34 | NUR ---
NO ACUTE CHANGES SINCE LAST NOTE. PT HAS HAD NO FUTHER COMPLAINTS. PT IS SITTING UP IN BED EATING DINNER AT THIS TIME WITH AT BEDSIDE. DENIES NEEDS AT THIS TIME. CALL LIGHT IN REACH. WILL CONITNUE TO MONITOR AND GIVE REPORT TO ONCOMING SHIFT RN.
[2023-04-28 00:20] VITALS: BP 131/74
[2023-04-28 04:30] VITALS: BP 121/69
--- NOTE | 2023-04-28 07:28 | NUR ---
SHIFT SUMMARY PATIENT ALERT AND ORIENTED X4. MEDICATED PER EMAR FOR HEAD ACHE. DENIES CHEST PAIN AND SHORTNESS OF BREATH. ON ROOM AIR, BUT DESATED TO 87 OCCASIONALLY WHILE SLEEPING. VITAL SIGNS STABLE, HAD A 21 BEAT RUN OF MD LUCIA AWARE. WILL CONTINUE TO MONITOR. CALL LIGHT WITHIN REACH.
[2023-04-28 08:37] VITALS: BP 125/76
[2023-04-28] MEDS ORDERED: ALUM-MAG HYDROX30 M2 PO (09:07)
--- NOTE | 2023-04-28 11:52 | NUR ---
DISCHARGE: PACKET PRINTED AND PT EDUCATED. PT LEFT UNIT VIA WHEELCHAIR WITH [facility] TEACHER AT ABOUT 1130
== END 2023-04-28 11:25 | disposition home or self-care (01) | DRG 305 ==
LOC: ER 18:12 → PCU 23:37 → ER 04-27 00:02 → PCU 04-27 00:02
PROVIDERS: Family Medicine; ADMIT Student in an Organized Health Care Education/Training Program
DX: I16.1 Hypertensive emergency (principal); I24.89 Other forms of acute ischemic heart disease; I50.32 Chronic diastolic (congestive) heart failure; I48.91 Unspecified atrial fibrillation; E11.42 Type 2 diabetes mellitus with diabetic polyneuropathy; K21.9 Gastro-esophageal reflux disease without esophagitis; E03.9 Hypothyroidism, unspecified; E78.5 Hyperlipidemia, unspecified; F41.9 Anxiety disorder, unspecified; K58.9 Irritable bowel syndrome, unspecified; I11.0 Hypertensive heart disease with heart failure; E66.01 Morbid (severe) obesity due to excess calories; D64.9 Anemia, unspecified; J45.909 Unspecified asthma, uncomplicated; R00.1 Bradycardia, unspecified; M54.50 Low back pain, unspecified; G89.29 Other chronic pain; Z88.2 Allergy status to sulfonamides; Z88.1 Allergy status to other antibiotic agents; Z91.040 Latex allergy status; Z88.8 Allergy status to other drugs, medicaments and biological substances; Z79.890 Hormone replacement therapy; Z79.01 Long term (current) use of anticoagulants; Z79.899 Other long term (current) drug therapy; Z79.891 Long term (current) use of opiate analgesic; Z79.82 Long term (current) use of aspirin; Z79.84 Long term (current) use of oral hypoglycemic drugs; Z68.39 Body mass index [BMI] 39.0-39.9, adult; Z90.710 Acquired absence of both cervix and uterus; Z95.2 Presence of prosthetic heart valve; R42 Dizziness and giddiness; R53.83 Other fatigue; Z95.4 Presence of other heart-valve replacement
CPT/HCPCS: 36415; 71046; 80048; 80053; 82947; 83690; 83735; 83880; 84132; 84443; 84484; 85025; 93005; 93010; 93306; 93975; 94640; 94664; 94762; 96374; 96375; 99285-25; A9270; J0360; J2765; Q2036

== ENCOUNTER → 2023-04-26 | Outpatient (CLI) | payer MEDICARE, BC ==
[~2023-04-26] MED LIST changes: +ALUM-MAG HYDROX30 M2 PO
[2023-04-26 16:30] LABS: BASOPHILS ABSOLUTE AUTO 0.05 K/mm3 (0.00-0.23); BASOPHILS PERCENT AUTO 1 % (0-2); EOSINOPHILS PERCENT AUTO 2 % (0-6); Hematocrit 40.5 % (33.0-51.0); IMMATURE GRAN ABSOLUTE AUTO 0.05 K/mm3 (0.00-0.10); IMMATURE GRAN PERCENT AUTO 1 % (0-1); LYMPHOCYTES ABSOLUTE AUTO 1.75 K/mm3 (0.84-5.20); LYMPHOCYTES PERCENT AUTO 26 % (21-46); MONOCYTES PERCENT AUTO 12 % (4-13); Mean Corpuscular HGB Conc 34.6 g/dL (31.5-36.5); Mean Corpuscular Volume 93 fL (80-100); Mean Platelet Volume 10.2 fL (9.1-12.4); NEUTROPHILS ABSOLUTE AUTO 4.05 K/mm3 (1.96-9.15); NEUTROPHILS PERCENT AUTO 60 % (41-73); Platelet Count 204 K/mm3 (150-400); RDW Coefficient Variation 11.9 % (11.7-14.2); RDW Standard Deviation 40.4 fL (35.1-46.3); Red Blood Cell Count 4.38 M/mm3 (3.80-5.20)
[2023-04-26 16:48] LABS: Bun/Creatinine Ratio 13.3 (12.0-20.0); Calcium, Blood 9.2 mg/dL (8.5-10.1); Creatinine, Blood 1.05 mg/dL (0.40-1.00); Thyroid Stimulating Hormone 1.463 uIU/mL (0.360-4.800)
== END | disposition home or self-care (01) ==
LOC: LAB SHORT 16:17 → LAB 16:17
PROVIDERS: Physician Assistant Surgical
DX: R42 Dizziness and giddiness (principal); R53.83 Other fatigue
CPT/HCPCS: 80048; 83880; 84443; 84484; 85025

== ENCOUNTER 2023-05-16 12:27 | Emergency (ER) | payer OTHER, MEDICARE, BC ==
[~2023-05-16] VITALS: Ht 165.1 cm; Wt 112.9 kg
[~2023-05-16 12:27] MED LIST changes: +ALUM-MAG HYDROX30 M2 PO
[2023-05-16] MEDS ORDERED: Cyclobenzaprine HCl 10 MG Tab PO ONE (15:05)
[2023-05-16 15:14] VITALS: BP 166/84
== END 2023-05-16 15:26 | disposition home or self-care (01) ==
LOC: ER 12:27
DX: S09.90XA Unspecified injury of head, initial encounter (principal); M54.50 Low back pain, unspecified; M54.2 Cervicalgia; E11.9 Type 2 diabetes mellitus without complications; I10 Essential (primary) hypertension; K51.90 Ulcerative colitis, unspecified, without complications; Z88.1 Allergy status to other antibiotic agents; Z88.2 Allergy status to sulfonamides; Z88.8 Allergy status to other drugs, medicaments and biological substances; Z91.040 Latex allergy status; Z79.01 Long term (current) use of anticoagulants; Z79.82 Long term (current) use of aspirin; Z79.890 Hormone replacement therapy; Z79.51 Long term (current) use of inhaled steroids; Z79.899 Other long term (current) drug therapy; Z79.84 Long term (current) use of oral hypoglycemic drugs; W01.0XXA Fall on same level from slipping, tripping and stumbling without subsequent striking against object, initial encounter; Y92.009 Unspecified place in unspecified non-institutional (private) residence as the place of occurrence of the external cause
CPT/HCPCS: 70450; 72125; 99283-25; A9270

== ENCOUNTER 2023-12-08 10:37 | Emergency (ER) | payer MEDICARE, BC ==
[~2023-12-08] VITALS: Ht 165.1 cm; Wt 112.9 kg
[2023-12-08] MEDS ORDERED: Ondansetron HCl 2 MG / ML 2ML Vial IV ONE (11:00)
[2023-12-08] MEDS ORDERED: NS 1,000 ML IV SCH (11:00)
[2023-12-08 11:56] LABS: BASOPHILS ABSOLUTE AUTO 0.03 K/mm3 (0.00-0.23); BASOPHILS PERCENT AUTO 1 % (0-2); EOSINOPHILS ABSOLUTE AUTO 0.01 K/mm3 (0.00-0.68); EOSINOPHILS PERCENT AUTO 0 % (0-6); Hematocrit 37.3 % (33.0-51.0); Hemoglobin 12.9 g/dL (11.5-16.0); IMMATURE GRAN PERCENT AUTO 2 % (0-1); LYMPHOCYTES ABSOLUTE AUTO 0.56 K/mm3 (0.84-5.20); LYMPHOCYTES PERCENT AUTO 12 % (21-46); MONOCYTES ABSOLUTE AUTO 0.52 K/mm3 (0.16-1.47); MONOCYTES PERCENT AUTO 11 % (4-13); Mean Corpuscular HGB 30.9 pg (26.0-34.0); Mean Corpuscular HGB Conc 34.6 g/dL (31.5-36.5); Mean Corpuscular Volume 89 fL (80-100); Mean Platelet Volume 9.9 fL (9.1-12.4); NEUTROPHILS PERCENT AUTO 74 % (41-73); Platelet Count 202 K/mm3 (150-400); RDW Coefficient Variation 12.7 % (11.7-14.2); RDW Standard Deviation 41.5 fL (35.1-46.3); Red Blood Cell Count 4.17 M/mm3 (3.80-5.20); White Blood Cell Count 4.72 K/mm3 (4.00-11.30)
[2023-12-08 12:44] LABS: Albumin, Blood 3.2 g/dL (3.4-5.0); Albumin/Globulin Ratio 0.8 (0.8-1.8); Bilirubin, Total 0.6 mg/dL (0.1-1.0); Bun/Creatinine Ratio 21.5 (12.0-20.0); Calcium, Blood 8.9 mg/dL (8.5-10.1); Creatinine, Blood 0.7 mg/dL (0.40-1.00); Globulin, Blood 4.2 g/dL (2.2-4.0); Potassium, Blood 4.2 mmol/L (3.5-5.5); Total Protein, Blood 7.4 g/dL (6.4-8.2)
[2023-12-08] MEDS ORDERED: Ketorolac Tromethamine 30mg Vial IV ONE (14:50)
[2023-12-08] MEDS ORDERED: DiphenhydrAMINE HCl 50 MG/ML 1ML Vial IV ONE (14:50)
[2023-12-08] MEDS ORDERED: Lidocaine 2% Viscous Soln 15 ML UDC PO ONE (14:50)
[2023-12-08] MEDS ORDERED: Metoclopramide HCl 5MG / ML 2ML Vial IV ONE (14:50)
[2023-12-08] MEDS ORDERED: Mag Hydrox/AL Hydrox/Simeth 30 ML UDC PO ONE (14:50)
[2023-12-08 16:01] LABS: Base Excess Venous 0.7 mmol/L; Bicarbonate Venous 24.3 mmol/L (24.0-30.0); PCO2 Venous 46.8 mmHg (38-42); pH Blood Venous 7.36 (7.34-7.37)
[2023-12-08] MEDS ORDERED: CloNIDine 0.1 MG Tab PO ONE (16:10)
[2023-12-08 16:24] LABS: Source, Urine Clean Catch
[2023-12-08 16:32] LABS: Appearance, Urine Clear (Clear); Bilirubin, Urine Neg (Neg); Blood, Urine 1+ (Neg); Color, Urine Yellow (P-Yellow); Glucose Qualitative, Urine Neg (Neg); Ketones, Urine Neg (Neg); Leukocyte Esterase, Urine Neg (Neg); Nitrite, Urine Neg (Neg); Protein, Urine 2+ (Neg); Specific Gravity, Urine 1.015 (1.003-1.022); Urobilinogen, Urine NORM (Normal)
[2023-12-08 16:49] LABS: Amorphous Light (0-Heavy); Bacteria Mod /hpf; Mucus Light (0-Heavy); Red Blood Cells, Urine 0-2 /hpf (0-2); Squamous Epithelial Cells Rare /hpf (Few); White Blood Cells, Urine 0-2 /hpf (0-5)
[2023-12-08] MEDS ORDERED: Pantoprazole Sodium 40 MG Injection IV ONE (17:00)
[2023-12-08] MEDS ORDERED: SUCR1 PO (17:06)
[2023-12-08] MEDS ORDERED: OMEP20ER PO (17:06)
[2023-12-08] MEDS ORDERED: METO10 PO (17:07)
[2023-12-08 17:30] VITALS: BP 133/84
== END 2023-12-08 17:39 ==
LOC: ER 10:37
PROVIDERS: Physician Assistant; Student in an Organized Health Care Education/Training Program
DX: U07.1 COVID-19 (principal); K29.70 Gastritis, unspecified, without bleeding; I10 Essential (primary) hypertension; E11.42 Type 2 diabetes mellitus with diabetic polyneuropathy; E03.9 Hypothyroidism, unspecified; E78.5 Hyperlipidemia, unspecified; K21.9 Gastro-esophageal reflux disease without esophagitis; J45.909 Unspecified asthma, uncomplicated; I25.2 Old myocardial infarction; I48.91 Unspecified atrial fibrillation; Z79.899 Other long term (current) drug therapy; Z79.82 Long term (current) use of aspirin; Z88.2 Allergy status to sulfonamides; Z88.1 Allergy status to other antibiotic agents; Z91.040 Latex allergy status; Z88.8 Allergy status to other drugs, medicaments and biological substances
CPT/HCPCS: 71045; 80053; 81001; 82803; 83690; 83735; 85025; 87086; 93005; 93010; 96374; 96375; 99284-25; A9270; J1200; J1885; J2405; J2470; J2765; J7030

== ENCOUNTER 2023-12-24 14:05 | Emergency (ER) | payer MEDICARE, BC ==
[~2023-12-24] VITALS: Ht 165.1 cm; Wt 99.8 kg
[~2023-12-24 14:05] MED LIST changes: +METO10 PO; +SUCR1 PO
[2023-12-24 14:36] LABS: Source, Urine Straight Cath
[2023-12-24 14:40] LABS: Appearance, Urine Clear (Clear); Bilirubin, Urine Neg (Neg); Blood, Urine 1+ (Neg); Color, Urine Yellow (P-Yellow); Glucose Qualitative, Urine Neg (Neg); Ketones, Urine Neg (Neg); Leukocyte Esterase, Urine Neg (Neg); Nitrite, Urine Neg (Neg); Protein, Urine 3+ (Neg); Urobilinogen, Urine NORM (Normal); pH, Urine 6.5 (5.0-8.0)
[2023-12-24 14:41] LABS: BASOPHILS ABSOLUTE AUTO 0.04 K/mm3 (0.00-0.23); BASOPHILS PERCENT AUTO 1 % (0-2); EOSINOPHILS ABSOLUTE AUTO 0.06 K/mm3 (0.00-0.68); EOSINOPHILS PERCENT AUTO 1 % (0-6); Hematocrit 35.3 % (33.0-51.0); Hemoglobin 12.3 g/dL (11.5-16.0); IMMATURE GRAN ABSOLUTE AUTO 0.04 K/mm3 (0.00-0.10); IMMATURE GRAN PERCENT AUTO 1 % (0-1); LYMPHOCYTES ABSOLUTE AUTO 1.19 K/mm3 (0.84-5.20); LYMPHOCYTES PERCENT AUTO 21 % (21-46); MONOCYTES ABSOLUTE AUTO 0.77 K/mm3 (0.16-1.47); MONOCYTES PERCENT AUTO 14 % (4-13); Mean Corpuscular HGB 31.5 pg (26.0-34.0); Mean Corpuscular HGB Conc 34.8 g/dL (31.5-36.5); Mean Corpuscular Volume 91 fL (80-100); Mean Platelet Volume 9.7 fL (9.1-12.4); NEUTROPHILS ABSOLUTE AUTO 3.51 K/mm3 (1.96-9.15); NEUTROPHILS PERCENT AUTO 63 % (41-73); Platelet Count 211 K/mm3 (150-400); RDW Coefficient Variation 13.7 % (11.7-14.2); RDW Standard Deviation 44.6 fL (35.1-46.3); White Blood Cell Count 5.61 K/mm3 (4.00-11.30)
[2023-12-24 14:47] LABS: Bacteria Few /hpf; Red Blood Cells, Urine 0-2 /hpf (0-2); Squamous Epithelial Cells Few /hpf (Few)
[2023-12-24] MEDS ORDERED: Morphine Sulfate 4 MG/1 ML Injection SC ONE (15:00)
[2023-12-24 15:02] LABS: Albumin, Blood 3.4 g/dL (3.4-5.0); Albumin/Globulin Ratio 1.1 (0.8-1.8); Bilirubin, Total 0.5 mg/dL (0.1-1.0); Bun/Creatinine Ratio 11.9 (12.0-20.0); Calcium, Blood 9.1 mg/dL (8.5-10.1); Creatinine, Blood 0.76 mg/dL (0.40-1.00); Globulin, Blood 3.2 g/dL (2.2-4.0); Total Protein, Blood 6.6 g/dL (6.4-8.2)
[2023-12-24] MEDS ORDERED: Ondansetron HCl 2 MG / ML 2ML Vial IV ONE (15:05)
[2023-12-24] MEDS ORDERED: NS 1,000 ML IV SCH (15:05)
[2023-12-24] MEDS ORDERED: Morphine Sulfate 4 MG/1 ML Injection IV ONE (15:40)
[2023-12-24] MEDS ORDERED: Labetalol HCL 5 MG/ML 4ML Injection (Single Dose) IV ONE ×2 (16:35→18:40)
[2023-12-24 19:45] VITALS: BP 166/99
[2023-12-24] MEDS ORDERED: RX Prepack 2 Tabs Ondansetron ODT 4MG UD ONE (19:55)
[2023-12-25] MEDS ORDERED: ONDA4ODT MM (14:24)
== END 2023-12-24 19:57 | disposition home or self-care (01) ==
LOC: ER 14:05
PROVIDERS: Student in an Organized Health Care Education/Training Program
DX: R30.0 Dysuria (principal); I11.0 Hypertensive heart disease with heart failure; I50.9 Heart failure, unspecified; J45.909 Unspecified asthma, uncomplicated; E78.5 Hyperlipidemia, unspecified; E11.42 Type 2 diabetes mellitus with diabetic polyneuropathy; K21.9 Gastro-esophageal reflux disease without esophagitis; I25.2 Old myocardial infarction; I48.91 Unspecified atrial fibrillation; Z87.891 Personal history of nicotine dependence; Z79.899 Other long term (current) drug therapy; Z88.2 Allergy status to sulfonamides; Z88.1 Allergy status to other antibiotic agents; Z91.040 Latex allergy status; Z88.8 Allergy status to other drugs, medicaments and biological substances
CPT/HCPCS: 51701; 74177; 80053; 81001; 84484; 85025; 85379; 93005; 93010; 96361-59; 96374-59; 96375-59; 96376-59; 99284-25; A9270; J2270; J2405; J7030; Q9967

== ENCOUNTER 2023-12-25 08:34 | Emergency (ER) | payer MEDICARE, BC ==
[~2023-12-25] VITALS: Ht 162.6 cm; Wt 83.9 kg
[2023-12-25 08:50] VITALS: BP 188/93
[2023-12-25 10:06] LABS: Source, Urine Clean Catch
[2023-12-25 10:12] LABS: Appearance, Urine Clear (Clear); Bilirubin, Urine Neg (Neg); Blood, Urine Neg (Neg); Color, Urine Yellow (P-Yellow); Glucose Qualitative, Urine Neg (Neg); Ketones, Urine Neg (Neg); Leukocyte Esterase, Urine 1+ (Neg); Nitrite, Urine Neg (Neg); Protein, Urine 2+ (Neg); Urobilinogen, Urine NORM (Normal)
[2023-12-25 10:22] LABS: Bacteria Rare /hpf; Red Blood Cells, Urine 0-2 /hpf (0-2); Squamous Epithelial Cells Mod /hpf (Few)
[2023-12-25 10:40] LABS: BASOPHILS ABSOLUTE AUTO 0.03 K/mm3 (0.00-0.23); BASOPHILS PERCENT AUTO 1 % (0-2); EOSINOPHILS ABSOLUTE AUTO 0.04 K/mm3 (0.00-0.68); EOSINOPHILS PERCENT AUTO 1 % (0-6); Hematocrit 36.6 % (33.0-51.0); Hemoglobin 12.4 g/dL (11.5-16.0); IMMATURE GRAN ABSOLUTE AUTO 0.03 K/mm3 (0.00-0.10); IMMATURE GRAN PERCENT AUTO 1 % (0-1); LYMPHOCYTES ABSOLUTE AUTO 0.99 K/mm3 (0.84-5.20); LYMPHOCYTES PERCENT AUTO 15 % (21-46); MONOCYTES ABSOLUTE AUTO 0.84 K/mm3 (0.16-1.47); MONOCYTES PERCENT AUTO 13 % (4-13); Mean Corpuscular HGB 31.4 pg (26.0-34.0); Mean Corpuscular HGB Conc 33.9 g/dL (31.5-36.5); Mean Corpuscular Volume 93 fL (80-100); NEUTROPHILS ABSOLUTE AUTO 4.54 K/mm3 (1.96-9.15); NEUTROPHILS PERCENT AUTO 70 % (41-73); Platelet Count 208 K/mm3 (150-400); RDW Coefficient Variation 13.8 % (11.7-14.2); Red Blood Cell Count 3.95 M/mm3 (3.80-5.20); White Blood Cell Count 6.47 K/mm3 (4.00-11.30)
[2023-12-25 11:24] LABS: Albumin, Blood 3.5 g/dL (3.4-5.0); Bilirubin, Total 0.5 mg/dL (0.1-1.0); Bun/Creatinine Ratio 10.8 (12.0-20.0); Calcium, Blood 9.5 mg/dL (8.5-10.1); Creatinine, Blood 0.74 mg/dL (0.40-1.00); Globulin, Blood 3.5 g/dL (2.2-4.0); Potassium, Blood 4.1 mmol/L (3.5-5.5)
[2023-12-25] MEDS ORDERED: ONDA4ODT MM (14:24)
== END 2023-12-25 14:48 | disposition home or self-care (01) ==
LOC: ER 08:34
PROVIDERS: Student in an Organized Health Care Education/Training Program
DX: R53.1 Weakness (principal); Z91.81 History of falling; E11.42 Type 2 diabetes mellitus with diabetic polyneuropathy; I11.0 Hypertensive heart disease with heart failure; I50.9 Heart failure, unspecified; E03.9 Hypothyroidism, unspecified; E78.5 Hyperlipidemia, unspecified; K21.9 Gastro-esophageal reflux disease without esophagitis; J45.909 Unspecified asthma, uncomplicated; I25.2 Old myocardial infarction; I48.91 Unspecified atrial fibrillation; Z87.891 Personal history of nicotine dependence; Z88.2 Allergy status to sulfonamides; Z88.1 Allergy status to other antibiotic agents; Z88.8 Allergy status to other drugs, medicaments and biological substances; Z91.040 Latex allergy status; Z79.01 Long term (current) use of anticoagulants; Z79.82 Long term (current) use of aspirin; Z79.890 Hormone replacement therapy; Z79.899 Other long term (current) drug therapy; Z95.2 Presence of prosthetic heart valve
CPT/HCPCS: 36415; 70450; 71046; 80053; 81001; 84484; 85025; 85379; 87086; 93005; 93010; 93971; 99285-25

== ENCOUNTER → 2023-12-27 | Outpatient (CLI) | payer MEDICARE, BC ==
[2023-12-27 10:35] LABS: BASOPHILS ABSOLUTE AUTO 0.05 K/mm3 (0.00-0.23); BASOPHILS PERCENT AUTO 1 % (0-2); EOSINOPHILS ABSOLUTE AUTO 0.07 K/mm3 (0.00-0.68); EOSINOPHILS PERCENT AUTO 1 % (0-6); Hematocrit 39.7 % (33.0-51.0); Hemoglobin 13.7 g/dL (11.5-16.0); IMMATURE GRAN ABSOLUTE AUTO 0.06 K/mm3 (0.00-0.10); IMMATURE GRAN PERCENT AUTO 1 % (0-1); LYMPHOCYTES ABSOLUTE AUTO 1.06 K/mm3 (0.84-5.20); LYMPHOCYTES PERCENT AUTO 16 % (21-46); MONOCYTES ABSOLUTE AUTO 0.86 K/mm3 (0.16-1.47); MONOCYTES PERCENT AUTO 13 % (4-13); Mean Corpuscular HGB 31.5 pg (26.0-34.0); Mean Corpuscular HGB Conc 34.5 g/dL (31.5-36.5); Mean Corpuscular Volume 91 fL (80-100); Mean Platelet Volume 9.7 fL (9.1-12.4); NEUTROPHILS ABSOLUTE AUTO 4.46 K/mm3 (1.96-9.15); NEUTROPHILS PERCENT AUTO 68 % (41-73); Platelet Count 218 K/mm3 (150-400); RDW Coefficient Variation 13.8 % (11.7-14.2); RDW Standard Deviation 46.3 fL (35.1-46.3); Red Blood Cell Count 4.35 M/mm3 (3.80-5.20); White Blood Cell Count 6.56 K/mm3 (4.00-11.30)
[2023-12-27 10:46] LABS: Albumin, Blood 3.7 g/dL (3.4-5.0); Bilirubin, Total 0.5 mg/dL (0.1-1.0); Bun/Creatinine Ratio 6.9 (12.0-20.0); Calcium, Blood 9.2 mg/dL (8.5-10.1); Creatinine, Blood 1.01 mg/dL (0.40-1.00); Globulin, Blood 3.7 g/dL (2.2-4.0); Potassium, Blood 3.7 mmol/L (3.5-5.5); Total Protein, Blood 7.4 g/dL (6.4-8.2)
== END ==
LOC: LAB 10:31 → LAB SHORT 10:31
PROVIDERS: Physician Assistant
DX: R10.9 Unspecified abdominal pain (principal); R82.81 Pyuria
CPT/HCPCS: 80053; 83690; 85025; 87077; 87086; 87186

== ENCOUNTER 2024-01-22 09:30 | Emergency (ER) | payer MEDICARE, BC ==
[~2024-01-22] VITALS: Ht 165.1 cm; Wt 124.7 kg
[2024-01-22 10:35] LABS: BASOPHILS ABSOLUTE AUTO 0.04 K/mm3 (0.00-0.23); BASOPHILS PERCENT AUTO 1 % (0-2); EOSINOPHILS ABSOLUTE AUTO 0.04 K/mm3 (0.00-0.68); EOSINOPHILS PERCENT AUTO 1 % (0-6); Hematocrit 42.2 % (33.0-51.0); Hemoglobin 14.7 g/dL (11.5-16.0); IMMATURE GRAN ABSOLUTE AUTO 0.02 K/mm3 (0.00-0.10); IMMATURE GRAN PERCENT AUTO 0 % (0-1); LYMPHOCYTES ABSOLUTE AUTO 0.92 K/mm3 (0.84-5.20); LYMPHOCYTES PERCENT AUTO 18 % (21-46); MONOCYTES ABSOLUTE AUTO 0.68 K/mm3 (0.16-1.47); MONOCYTES PERCENT AUTO 13 % (4-13); Mean Corpuscular HGB 31.5 pg (26.0-34.0); Mean Corpuscular HGB Conc 34.8 g/dL (31.5-36.5); Mean Corpuscular Volume 90 fL (80-100); Mean Platelet Volume 9.8 fL (9.1-12.4); NEUTROPHILS PERCENT AUTO 67 % (41-73); Platelet Count 254 K/mm3 (150-400); RDW Coefficient Variation 13.7 % (11.7-14.2); RDW Standard Deviation 45.5 fL (35.1-46.3); Red Blood Cell Count 4.67 M/mm3 (3.80-5.20)
[2024-01-22 11:16] LABS: Albumin, Blood 3.8 g/dL (3.4-5.0); Bilirubin, Total 0.7 mg/dL (0.1-1.0); Bun/Creatinine Ratio 12.9 (12.0-20.0); Calcium, Blood 9.5 mg/dL (8.5-10.1); Creatinine, Blood 0.78 mg/dL (0.40-1.00); Potassium, Blood 4.6 mmol/L (3.5-5.5); Total Protein, Blood 7.8 g/dL (6.4-8.2)
[2024-01-22 13:37] LABS: Source, Urine Clean Catch
[2024-01-22 13:40] LABS: Appearance, Urine Clear (Clear); Blood, Urine 1+ (Neg); Color, Urine Amber (P-Yellow); Glucose Qualitative, Urine Neg (Neg); Ketones, Urine 1+ (Neg); Leukocyte Esterase, Urine 3+ (Neg); Nitrite, Urine Pos (Neg); Protein, Urine 3+ (Neg); Specific Gravity, Urine 1.025 (1.003-1.022); Urobilinogen, Urine 1+ (Normal)
[2024-01-22 13:41] LABS: Bilirubin, Urine 1+ (Neg)
[2024-01-22 13:43] LABS: Bacteria Many /hpf; Squamous Epithelial Cells Mod /hpf (Few)
[2024-01-22] MEDS ORDERED: ATEN50 (14:09)
[2024-01-22] MEDS ORDERED: CATAPRES0.1 MG (14:10)
[2024-01-22] MEDS ORDERED: ATOR40TA PO (14:11)
[2024-01-22] MEDS ORDERED: LAMOTRIGINE25 M4 (14:11)
[2024-01-22] MEDS ORDERED: ELIQUIS5 M3 PO (14:11)
[2024-01-22] MEDS ORDERED: LISI20 (14:11)
[2024-01-22] MEDS ORDERED: DILTIAZEM 24HR120 M4 PO (14:12)
[2024-01-22] MEDS ORDERED: CefTRIAXone Sodium 1,000 MG in NS 50 ML IV ONE (14:15)
[2024-01-22] MEDS ORDERED: CEPH500 PO (14:41)
[2024-01-22 15:00] VITALS: BP 179/104
== END 2024-01-22 15:15 | disposition home or self-care (01) ==
LOC: ER 09:30
PROVIDERS: Physician Assistant
DX: N39.0 Urinary tract infection, site not specified (principal); M79.672 Pain in left foot; I11.0 Hypertensive heart disease with heart failure; I50.9 Heart failure, unspecified; I25.2 Old myocardial infarction; I48.91 Unspecified atrial fibrillation; E11.42 Type 2 diabetes mellitus with diabetic polyneuropathy; E03.9 Hypothyroidism, unspecified; E78.5 Hyperlipidemia, unspecified; K21.9 Gastro-esophageal reflux disease without esophagitis; J45.909 Unspecified asthma, uncomplicated; Z95.2 Presence of prosthetic heart valve; Z87.891 Personal history of nicotine dependence; Z88.2 Allergy status to sulfonamides; Z88.1 Allergy status to other antibiotic agents; Z88.8 Allergy status to other drugs, medicaments and biological substances; Z91.040 Latex allergy status; Z79.01 Long term (current) use of anticoagulants; Z79.82 Long term (current) use of aspirin; Z79.84 Long term (current) use of oral hypoglycemic drugs; Z79.890 Hormone replacement therapy; Z79.899 Other long term (current) drug therapy; W19.XXXA Unspecified fall, initial encounter
CPT/HCPCS: 73630; 80053; 81001; 85025; 87086; 93005; 93010; 96365; 99285-25; J0696

== ENCOUNTER 2024-02-04 11:52 | Emergency (ER) | payer MEDICARE, BC ==
[~2024-02-04] VITALS: Ht 165.1 cm; Wt 106.6 kg
[~2024-02-04 11:52] MED LIST changes: +ATEN50 PO; +CEPH500 PO; +DILTIAZEM 24HR120 M4 PO; +ELIQUIS5 M3 PO; +LAMOTRIGINE25 M4 PO
[2024-02-04] MEDS ORDERED: Ondansetron HCl 2 MG / ML 2ML Vial IV ONE (12:10)
[2024-02-04 12:22] LABS: Source, Urine Clean Catch
[2024-02-04 12:24] LABS: BASOPHILS ABSOLUTE AUTO 0.05 K/mm3 (0.00-0.23); BASOPHILS PERCENT AUTO 1 % (0-2); EOSINOPHILS ABSOLUTE AUTO 0.08 K/mm3 (0.00-0.68); EOSINOPHILS PERCENT AUTO 2 % (0-6); Hematocrit 33.1 % (33.0-51.0); Hemoglobin 11.5 g/dL (11.5-16.0); IMMATURE GRAN ABSOLUTE AUTO 0.02 K/mm3 (0.00-0.10); IMMATURE GRAN PERCENT AUTO 1 % (0-1); LYMPHOCYTES ABSOLUTE AUTO 0.94 K/mm3 (0.84-5.20); LYMPHOCYTES PERCENT AUTO 25 % (21-46); MONOCYTES ABSOLUTE AUTO 0.41 K/mm3 (0.16-1.47); MONOCYTES PERCENT AUTO 11 % (4-13); Mean Corpuscular HGB 31.5 pg (26.0-34.0); Mean Corpuscular HGB Conc 34.7 g/dL (31.5-36.5); Mean Corpuscular Volume 91 fL (80-100); Mean Platelet Volume 9.9 fL (9.1-12.4); NEUTROPHILS ABSOLUTE AUTO 2.33 K/mm3 (1.96-9.15); NEUTROPHILS PERCENT AUTO 61 % (41-73); Platelet Count 196 K/mm3 (150-400); RDW Coefficient Variation 13.2 % (11.7-14.2); RDW Standard Deviation 43.6 fL (35.1-46.3); Red Blood Cell Count 3.65 M/mm3 (3.80-5.20); White Blood Cell Count 3.83 K/mm3 (4.00-11.30)
[2024-02-04 12:26] LABS: Appearance, Urine Clear (Clear); Bilirubin, Urine Neg (Neg); Blood, Urine Neg (Neg); Glucose Qualitative, Urine Neg (Neg); Ketones, Urine Neg (Neg); Leukocyte Esterase, Urine Neg (Neg); Nitrite, Urine Neg (Neg); Protein, Urine Neg (Neg); Urobilinogen, Urine NORM (Normal)
[2024-02-04 12:28] LABS: Color, Urine Pale Yellow (P-Yellow)
[2024-02-04 12:41] LABS: Albumin, Blood 3.2 g/dL (3.4-5.0); Bilirubin, Total 0.5 mg/dL (0.1-1.0); Bun/Creatinine Ratio 16.7 (12.0-20.0); Calcium, Blood 9.2 mg/dL (8.5-10.1); Creatinine, Blood 0.84 mg/dL (0.40-1.00); Globulin, Blood 3.2 g/dL (2.2-4.0); Potassium, Blood 4.9 mmol/L (3.5-5.5); Total Protein, Blood 6.4 g/dL (6.4-8.2)
[2024-02-04 18:00] LABS: Free Thyroxine 0.91 ng/dL (0.70-1.60)
[2024-02-04 18:02] VITALS: BP 165/89
[2024-02-04 18:02] LABS: Thyroid Stimulating Hormone 1.78 uIU/mL (0.360-4.800)
== END 2024-02-04 18:55 | disposition home or self-care (01) ==
LOC: ER 11:52
PROVIDERS: Emergency Medicine
DX: R53.1 Weakness (principal); E87.1 Hypo-osmolality and hyponatremia; I11.0 Hypertensive heart disease with heart failure; I50.9 Heart failure, unspecified; E11.42 Type 2 diabetes mellitus with diabetic polyneuropathy; E03.9 Hypothyroidism, unspecified; K21.9 Gastro-esophageal reflux disease without esophagitis; I48.91 Unspecified atrial fibrillation; I25.2 Old myocardial infarction; E78.5 Hyperlipidemia, unspecified; Z88.2 Allergy status to sulfonamides; Z88.8 Allergy status to other drugs, medicaments and biological substances; Z88.1 Allergy status to other antibiotic agents; Z91.040 Latex allergy status; Z79.01 Long term (current) use of anticoagulants; Z79.82 Long term (current) use of aspirin; Z79.84 Long term (current) use of oral hypoglycemic drugs; Z79.890 Hormone replacement therapy; Z79.899 Other long term (current) drug therapy; Z87.891 Personal history of nicotine dependence
CPT/HCPCS: 80053; 81003; 84439; 84443; 85025; 93005; 93010; 96374; 99285-25; J2405

== ENCOUNTER 2024-02-08 00:17 | Inpatient (IN) | payer MEDICARE, BC ==
[~2024-02-08] VITALS: Ht 165.1 cm; Wt 111.0 kg
[2024-02-08] VITALS (18 sets, daily range): BP systolic 138–190; BP diastolic 73–111
[2024-02-08 00:40] LABS: BASOPHILS ABSOLUTE AUTO 0.02 K/mm3 (0.00-0.23); BASOPHILS PERCENT AUTO 0 % (0-2); EOSINOPHILS ABSOLUTE AUTO 0.03 K/mm3 (0.00-0.68); EOSINOPHILS PERCENT AUTO 0 % (0-6); Hematocrit 36.4 % (33.0-51.0); Hemoglobin 12.9 g/dL (11.5-16.0); IMMATURE GRAN ABSOLUTE AUTO 0.03 K/mm3 (0.00-0.10); IMMATURE GRAN PERCENT AUTO 0 % (0-1); LYMPHOCYTES ABSOLUTE AUTO 0.67 K/mm3 (0.84-5.20); LYMPHOCYTES PERCENT AUTO 9 % (21-46); MONOCYTES ABSOLUTE AUTO 0.68 K/mm3 (0.16-1.47); MONOCYTES PERCENT AUTO 9 % (4-13); Mean Corpuscular HGB 31.3 pg (26.0-34.0); Mean Corpuscular HGB Conc 35.4 g/dL (31.5-36.5); Mean Corpuscular Volume 88 fL (80-100); Mean Platelet Volume 9.3 fL (9.1-12.4); NEUTROPHILS ABSOLUTE AUTO 5.79 K/mm3 (1.96-9.15); NEUTROPHILS PERCENT AUTO 80 % (41-73); Platelet Count 211 K/mm3 (150-400); RDW Coefficient Variation 13.3 % (11.7-14.2); RDW Standard Deviation 43.5 fL (35.1-46.3); Red Blood Cell Count 4.12 M/mm3 (3.80-5.20); White Blood Cell Count 7.22 K/mm3 (4.00-11.30)
[2024-02-08 01:01] LABS: Source, Urine Clean Catch
[2024-02-08 01:06] LABS: Alanine Aminotransfer (ALT/SGP 30 U/L (12-78); Albumin, Blood 3.7 g/dL (3.4-5.0); Albumin/Globulin Ratio 1.1 (0.8-1.8); Alk Phos 95 U/L (50-136); Anion Gap 14 mmol/L (3-11); Aspartate Aminotrans (AST/SGOT 31 U/L (12-37); Bilirubin, Total 0.6 mg/dL (0.1-1.0); Blood Urea Nitrogen 8 mg/dL (8-24); Bun/Creatinine Ratio 10.8 (12.0-20.0); CO2, Blood 23 mmol/L (21-32); Calcium, Blood 9.2 mg/dL (8.5-10.1); Chloride, Blood 96 mmol/L (98-108); Creatinine, Blood 0.74 mg/dL (0.40-1.00); Ethanol (Alcohol), Blood, Med <3 mg/dL; Globulin, Blood 3.3 g/dL (2.2-4.0); Glomerular Filtration Rate 84 (60-); Glucose, Blood 139 mg/dL (70-99); Potassium, Blood 4.1 mmol/L (3.5-5.5); Sodium, Blood 129 mmol/L (136-145)
[2024-02-08 01:25] LABS: Bilirubin, Urine Neg (Neg); Blood, Urine Neg (Neg); Glucose Qualitative, Urine Neg (Neg); Ketones, Urine Neg (Neg); Leukocyte Esterase, Urine Neg (Neg); Nitrite, Urine Neg (Neg); Protein, Urine 1+ (Neg); Urobilinogen, Urine NORM (Normal)
[2024-02-08 01:26] LABS: U Amphetamine Screen Not Detected; U Barbituate Screen Not Detected; U Benzodiazapine Screen Not Detected; U Buprenorphine Screen Not Detected; U Cannabinoids Screen Not Detected; U Cocaine Screen Not Detected; U Methadone Screen Not Detected; U Methamphetamine Screen Not Detected; U Opiates Screen Not Detected; U Oxycodone Screen Not Detected; U Phencyclidine Screen Not Detected
[2024-02-08 01:32] LABS: Thyroid Stimulating Hormone 3.18 uIU/mL (0.360-4.800)
[2024-02-08 01:37] LABS: Appearance, Urine Clear (Clear); Color, Urine Pale Yellow (P-Yellow)
[2024-02-08] MEDS ORDERED: Labetalol HCL 5 MG/ML 4ML Injection (Single Dose) IV ONE (02:10)
[2024-02-08] MEDS ORDERED: Ondansetron HCl 2 MG / ML 2ML Vial IV PRN (03:45)
[2024-02-08] MEDS ORDERED: FLU VACC TS2024-25(6MOS UP)/PF 45 MCG/0.5 ML SYRINGE IM SCH (03:45)
[2024-02-08] MEDS ORDERED: NiCARdipine HCL 50 MG in NS 250 ML IV SCH (03:55)
[2024-02-08] MEDS ORDERED: NiCARdipine HCL 25 MG/10 ML (2.5MG/ML) IV SCH (04:00)
[2024-02-08] MEDS ORDERED: Levothyroxine Sodium 0.075 MG Tab PO SCH (06:00)
[2024-02-08] MEDS ORDERED: Aspirin 81 MG Chew PO SCH (09:00)
[2024-02-08] MEDS ORDERED: Atorvastatin 40 MG Tab PO SCH (09:00)
[2024-02-08] MEDS ORDERED: Apixaban 5 MG Tab PO SCH (09:00)
[2024-02-08 10:26] LABS: Hematocrit 34.7 % (33.0-51.0); Hemoglobin 12.4 g/dL (11.5-16.0); Mean Corpuscular HGB 31.3 pg (26.0-34.0); Mean Corpuscular HGB Conc 35.7 g/dL (31.5-36.5); Mean Corpuscular Volume 88 fL (80-100); Mean Platelet Volume 9.5 fL (9.1-12.4); Platelet Count 207 K/mm3 (150-400); RDW Coefficient Variation 13.4 % (11.7-14.2); RDW Standard Deviation 43.1 fL (35.1-46.3); Red Blood Cell Count 3.96 M/mm3 (3.80-5.20); White Blood Cell Count 7.24 K/mm3 (4.00-11.30)
--- NOTE | 2024-02-08 10:48 | NUR ---
PT WAS ADMITTED TO ICU 3 AT 0730 THIS AM. SHE IS ALERT AND COOPERATIVE. LOOKING ABOUT THE ROOM AND ASKING ABOUT PEOPLE AND THINGS THAT ARE NOT PRESENT. SHE IS STATING THAT SHE IS FEARFUL FOR HER GRANDCHILDREN, THAT HER SON "IS A GOOD SHOT". WHEN QUESTIONED IF SHE HAS BEEN THREATENED. SHE ASKS FOR THE QUESTION AGAIN. SHE STATES, "HE KNOWS WHERE I AM". PT IS TOLD SHE IS SAFE, SHE IS IN ICU, THAT SHE IS IN A LOCKED UNIT, SHE HAS REQUESTED NO VISITORS. SHE DOESN'T REMEMBER WHAT HAPPENED YESTERDAY OR EARLIER TODAY. HER LUNGS ARE CLEAR BUT DIMINISHED, SHE COMPLAINS OF LOWER ABD PAIN, BUT NO PAIN WITH URINATION. SHE HAS BEEN UP TO THE [facility] AND DID WELL. SHE HAD A PG PLACED LAB HAD A DIFFICULT TIME OBTAINING A SPECIMEN. NICARDIPINE HAS BEEN AT 5MG/HR AND JUST DECREASED TO 2.5MG/HR.
[2024-02-08] MEDS ORDERED: dilTIAZem HCL 120 MG CAP.CD PO SCH (10:50)
[2024-02-08 10:54] LABS: BASOPHILS PERCENT MAN 0 % (0-2); EOSINOPHILS PERCENT MAN 0 % (0-6); LYMPHOCYTES ABSOLUTE MAN 1.23 K/mm3 (0.84-5.20); LYMPHOCYTES PERCENT MAN 17 % (21-46); MONOCYTES ABSOLUTE MAN 0.43 K/mm3 (0.16-1.47); MONOCYTES PERCENT MAN 6 % (4-13); NEUTROPHILS ABSOLUTE MAN 5.57 K/mm3 (1.96-9.15); SEG NEUTROPHILS PERCENT MAN 77 % (41-73); TOTAL CELLS COUNTED 100
[2024-02-08 10:57] LABS: Albumin, Blood 3.4 g/dL (3.4-5.0); Bilirubin, Total 0.7 mg/dL (0.1-1.0); Bun/Creatinine Ratio 12.2 (12.0-20.0); Calcium, Blood 9.1 mg/dL (8.5-10.1); Creatinine, Blood 0.66 mg/dL (0.40-1.00); Globulin, Blood 3.5 g/dL (2.2-4.0); Potassium, Blood 3.9 mmol/L (3.5-5.5); Total Protein, Blood 6.9 g/dL (6.4-8.2)
[2024-02-08] MEDS ORDERED: Lisinopril 20 MG Tab PO SCH (11:00)
[2024-02-08] MEDS ORDERED: Sodium Chloride 1 GM TAB PO SCH (11:30)
--- NOTE | 2024-02-08 11:50 | NUR ---
WITH STUDENT NURSE DURING ADMISSION AND CHARTING OF SUCH.
--- NOTE | 2024-02-08 12:07 | NUR ---
Met with patient this morning. Throughout the visit, her eyes were constantly darting around the room, often looking at the door. She stated she's worried about her granddaughters' safety, but doesn't answer any further questions. I asked her if she felt safe, she stated, "I don't know." Attempted to reassure her that the unit is locked, and she is safe, that unauthorized people are able to come in. This did seem to comfort her somewhat. I also mentioned that her sodium is low and this can cause our thinking to be "off", but the doctor's are working to correct this. She stated that makes her feel "a lot better," and states she feels like her "thinking is weird today." She wasn't able to tell me her name or , but did say, "I think so" when I asked if she lives alone. Attempted to call pt's son, but call went straight to , which was full. Will attempt again later today.
[2024-02-08] MEDS ORDERED: Sodium Bicarbonate 650 MG Tab PO SCH (14:00)
--- NOTE | 2024-02-08 15:21 | NUR ---
RUTH REMAINS VERY PARANOID, SHE CONTINUES TO SAY THAT SHE IS SORRY, THAT SHE IS AFRAID "HE CAN SEE HER". SHE IS SEEING OBJECTS IN THE ROOM, A FROG IN THE BLINDS, A GLASS SHELF ON THE WALL, A MAN IN RED AND BLACK (IT WAS THE CODE CART OUTSIDE OF HER WINDOW). SHE IS DARTING HER EYES TO AND FRO, SHE WILL ONLY TAKE IN WATER AND ASKS IF HER PILLS ARE OKAY TO TAKE. SHE HAS RECEIVED 2 DOSES OF THE SALT TABS. NO CHANGE IN MENTATION.
[2024-02-08] MEDS ORDERED: Lisinopril 20 MG Tab PO ONE (17:10)
--- NOTE | 2024-02-08 20:06 | NUR ---
PT CONTINUES TO BE HYPERTENSIVE W/SYSTOLIC 170-180S. SILVER METALWORKING SPECIALIST NOTIFIED. ORDERS GIVEN. WILL CONTINUE TO MONITOR.
[2024-02-08] MEDS ORDERED: CloNIDine 0.1 MG Tab PO ONE (20:10)
[2024-02-08 20:51] LABS: Bun/Creatinine Ratio 13.3 (12.0-20.0); Calcium, Blood 9.3 mg/dL (8.5-10.1); Creatinine, Blood 0.68 mg/dL (0.40-1.00); Potassium, Blood 3.5 mmol/L (3.5-5.5)
[2024-02-08] MEDS ORDERED: QUEtiapine Fumarate 50 MG TAB PO SCH (21:00)
[2024-02-08] MEDS ORDERED: Nystatin 100,000 Unit/GM Ointment 15 GM TOP SCH (21:00)
[2024-02-09] VITALS (20 sets, daily range): BP systolic 141–180; BP diastolic 77–136
[2024-02-09 03:38] LABS: BASOPHILS ABSOLUTE AUTO 0.03 K/mm3 (0.00-0.23); BASOPHILS PERCENT AUTO 0 % (0-2); EOSINOPHILS ABSOLUTE AUTO 0.01 K/mm3 (0.00-0.68); EOSINOPHILS PERCENT AUTO 0 % (0-6); Hematocrit 33.8 % (33.0-51.0); IMMATURE GRAN ABSOLUTE AUTO 0.02 K/mm3 (0.00-0.10); IMMATURE GRAN PERCENT AUTO 0 % (0-1); LYMPHOCYTES ABSOLUTE AUTO 0.98 K/mm3 (0.84-5.20); LYMPHOCYTES PERCENT AUTO 14 % (21-46); MONOCYTES ABSOLUTE AUTO 0.87 K/mm3 (0.16-1.47); MONOCYTES PERCENT AUTO 13 % (4-13); Mean Corpuscular HGB 31.7 pg (26.0-34.0); Mean Corpuscular HGB Conc 35.5 g/dL (31.5-36.5); Mean Corpuscular Volume 89 fL (80-100); Mean Platelet Volume 9.3 fL (9.1-12.4); NEUTROPHILS ABSOLUTE AUTO 4.99 K/mm3 (1.96-9.15); NEUTROPHILS PERCENT AUTO 72 % (41-73); Platelet Count 186 K/mm3 (150-400); RDW Coefficient Variation 13.3 % (11.7-14.2); RDW Standard Deviation 43.6 fL (35.1-46.3); Red Blood Cell Count 3.78 M/mm3 (3.80-5.20)
[2024-02-09 04:07] LABS: Albumin, Blood 3.3 g/dL (3.4-5.0); Albumin/Globulin Ratio 1.1 (0.8-1.8); Bilirubin, Total 0.7 mg/dL (0.1-1.0); Bun/Creatinine Ratio 14.8 (12.0-20.0); Calcium, Blood 9.1 mg/dL (8.5-10.1); Creatinine, Blood 0.67 mg/dL (0.40-1.00); Globulin, Blood 3.1 g/dL (2.2-4.0); Potassium, Blood 3.4 mmol/L (3.5-5.5); Total Protein, Blood 6.4 g/dL (6.4-8.2)
[2024-02-09] MEDS ORDERED: HydrALAZINE HCl 20 MG / ML 1ML Vial IV PRN (04:50)
[2024-02-09] MEDS ORDERED: Potassium Chloride 40 MEQ IV SCH (04:50)
[2024-02-09] MEDS ORDERED: Potassium Chl 20MEQ/Water100ML 100 ML IV SCH (05:05)
--- NOTE | 2024-02-09 06:41 | NUR ---
SHIFT SUMMERY PT HAS NOT SLEPT ALL NIGHT. SHE IS CONFUSED AT TIMES W/VISUAL HALLUCINATIONS. SHE HAS BEEN ALERT AND CAN ANSWER SOME QUESTIONS APPROPRIATLY. SHE HAS BEEN UP TO BEDSIDE COMMODE W/2 PERSON ASSIST. HYPERTENSIVE, SEE EMAR. PT HAS BEEN ON ROOM AIR, SHE HAS HAD NO RESP DISTRESS OVERNIGHT, OXYGEN SAT >92%. PT DID HAVE SOME PARANOIA IN REGARDS TO MEDICATION ADMINISTRATION BUT I WAS ABLE TO EDUCATE HER AND REDIRECT HER FOR MOST OF HER MEDICATIONS.
[2024-02-09] MEDS ORDERED: CloNIDine 0.1 MG Tab PO SCH (09:00)
[2024-02-09] MEDS ORDERED: LORazepam 1 MG Tab PO SCH (09:00)
[2024-02-09] MEDS ORDERED: Folic Acid 1 MG TAB PO SCH (09:00)
[2024-02-09] MEDS ORDERED: LamoTRIgine 25 MG Tab PO SCH (09:00)
[2024-02-09] MEDS ORDERED: Lisinopril 20 MG Tab PO SCH (09:00)
[2024-02-09 11:07] LABS: Bun/Creatinine Ratio 14.1 (12.0-20.0); Calcium, Blood 9.1 mg/dL (8.5-10.1); Creatinine, Blood 0.64 mg/dL (0.40-1.00); Potassium, Blood 3.8 mmol/L (3.5-5.5)
--- NOTE | 2024-02-09 18:37 | NUR ---
SHIFT SUMMARY: PTS MENTATION HAS STEADILY IMPROVED THROUGHOUT THE SHIFT. SHE IS STILL SOMEWHAT PARANOID AND CONFUSED ABOUT THINGS SHE KNOWS WHERE SHE IS AND IS COOPERATIVE. PT HAS TAKEN ALL OF HER PO MEDICATIONS TODAY. SHE IS EATING MORE THAN SHE HAS BEEN AND HAS GOTTEN UP TO USE THE COMMODE AND IN THE CHAIR TODAY. SHE IS STILL QUITE ANXIOUS ABOUT HER HEALTH AND IS CONCERNED ABOUT RETURNING HOME, SHE KNOWS THAT SHE HAS NOT BEEN TAKING HER MEDICATIONS LIKE THEY ARE PRESCRIBED AT HOME. PT REMAINS ON ROOM AIR, UNLABORED RESPIRATIONS. SINUS RHYTHM ON THE MONITOR. BLOOD PRESSURE IS ELEVATED AT TIMES, BUT CONTROLLED WITH HER MEDICATIONS.
--- NOTE | 2024-02-09 19:00 | NUR ---
ASSUMED CARE OF PATIENT AT APPROXIMATELY 1900. REPORT RECEIVED FROM ECHO STRATTON. PT RESTING UPRIGHT IN BED, WATCHING TELEVISION. INTERACTING WITH STAFF APPROPRIATELY DURING BEDSIDE REPORT. SHE STATES THAT SHE IS ANXIOUS SHE IS DRINKING TOO MUCH WATER. CONTINUOUS CARDIAC MONITORING IN PLACE SHOWING SR WITH HR OF 91. BP ELEVATED AT 168/125. ON RA WITH O2 SAUTRATIONS > 92%. SEE SHIFT ASSESSMENT FOR FULL DETAILS.
[2024-02-09] MEDS ORDERED: Atenolol 50 MG Tab PO SCH (21:00)
[2024-02-10] VITALS: BP 145/87
[2024-02-10 03:54] LABS: Hematocrit 32.7 % (33.0-51.0); Hemoglobin 11.8 g/dL (11.5-16.0); Mean Corpuscular HGB 32.4 pg (26.0-34.0); Mean Corpuscular HGB Conc 36.1 g/dL (31.5-36.5); Mean Corpuscular Volume 90 fL (80-100); Platelet Count 183 K/mm3 (150-400); RDW Coefficient Variation 13.4 % (11.7-14.2); RDW Standard Deviation 44.7 fL (35.1-46.3); Red Blood Cell Count 3.64 M/mm3 (3.80-5.20); White Blood Cell Count 6.06 K/mm3 (4.00-11.30)
[2024-02-10 04:00] VITALS: BP 173/76
[2024-02-10 04:20] LABS: Albumin, Blood 3.1 g/dL (3.4-5.0); Albumin/Globulin Ratio 1.1 (0.8-1.8); BAND PERCENT MAN 2 % (0-8); BASOPHILS PERCENT MAN 0 % (0-2); Bilirubin, Total 0.7 mg/dL (0.1-1.0); Bun/Creatinine Ratio 13.6 (12.0-20.0); Calcium, Blood 8.8 mg/dL (8.5-10.1); Creatinine, Blood 0.73 mg/dL (0.40-1.00); EOSINOPHILS ABSOLUTE MAN 0.12 K/mm3 (0.00-0.68); EOSINOPHILS PERCENT MAN 2 % (0-6); Globulin, Blood 2.8 g/dL (2.2-4.0); LYMPHOCYTES ABSOLUTE MAN 1.09 K/mm3 (0.84-5.20); LYMPHOCYTES PERCENT MAN 18 % (21-46); MONOCYTES ABSOLUTE MAN 0.54 K/mm3 (0.16-1.47); MONOCYTES PERCENT MAN 9 % (4-13); MYELOCYTE ABSOLUTE MAN 0.06 K/mm3 (0.00-0.00); MYELOCYTE PERCENT MAN 1 % (0-0); NEUTROPHILS ABSOLUTE MAN 4.24 K/mm3 (1.96-9.15); Potassium, Blood 3.7 mmol/L (3.5-5.5); SEG NEUTROPHILS PERCENT MAN 68 % (41-73); TOTAL CELLS COUNTED 100; Total Protein, Blood 5.9 g/dL (6.4-8.2)
[2024-02-10] MEDS ORDERED: Potassium Chl 20MEQ/Water100ML 100 ML IV SCH (04:50)
--- NOTE | 2024-02-10 05:50 | NUR ---
SHIFT SUMMARY PT SLEPT T/O MAJORITY OF THE SHIFT, ALERT AND ORIENTED X 4 WHEN AWAKE. PT LESS ANXIOUS THIS MORNING AND STATES SHE FEELS LIKE SHE JUST NEEDED SOME GOOD SLEEP. TOLERATED PO MEDS WITH LESS ENCOURAGEMENT THIS AM. AFEBRILE AND DENIES PAIN. CONTINOUS CARDIAC MONITORING IN PLACE SHOWS SB-SR WITH HR IN 50'S-90'S. BP STABLE WITH MAP > 65. ON RA WITH O2 SATURATIONS > 92%. NO BM THIS SHIFT. DENIES N/V. ONE VOID THIS AM. VARIOUS BRUISING SCATTERED T/O. PG TO LOREN INFUSING KCL. WILL CONTINUE TO MONITOR AND REPORT TO ONCOMING RN.
--- NOTE | 2024-02-10 07:00 | NUR ---
ASSUME CARE: I have assumed care of this note.
--- NOTE | 2024-02-10 07:00 | NUR ---
ASSUME CARE: I have assumed care of this patient.
[2024-02-10 08:31] VITALS: BP 167/96
[2024-02-10 09:00] VITALS: BP 124/90
--- NOTE | 2024-02-10 09:27 | NUR ---
PHONE UPDATE: Pt's son, Praful, updated via telephone. Praful states that he works in geriatric social work professor and is growning concerned about his mother's ability to live alone and care for herself. He states that he visits her on the weekends and provides assistance. Praful would like to work with case management and requests a phone call from geriatric social work professor.
--- NOTE | 2024-02-10 13:02 | NUR ---
TRANSFER: Report given to medical floor RN. Questions answered. Pt to be taken to room 335 via wheelchair by MARINE ELECTRICIAN. Pt has been up to chair for meals with standby assist. She reports indigestion when taking her pills and struggles to take more than a few at a time. Pt requests that we space out the medications for her.
[2024-02-10 15:09] VITALS: BP 179/87
--- NOTE | 2024-02-10 15:29 | NUR ---
ASSUMED CARE NOTE RECEIVED REPORT FROM IESHA DODGE AND ASSUMED CARE OF PT AT 1325. PT A&OX4, AMB W/ ASSIST, TOLERATING PO, AND DENIED PAIN. PT ORIENTED TO ROOM AND CALL LIGHT. CALL LIGHT PLACED WITHIN REACH.
--- NOTE | 2024-02-10 18:14 | NUR ---
SHIFT SUMMARY PT A&OX4 W/ FLIGHT OF IDEAS AT TIMES, VSS, AMB W/ ASSIST, TOLERATING PO, VOIDING, AND DENIED PAIN. NO ACUTE CHANGES. CALL LIGHT WITHIN REACH AND PT ABLE TO MAKE NEEDS KNOWN.
[2024-02-10 19:12] VITALS: BP 153/106
[2024-02-11] MEDS ORDERED: EUTHYROX100 MC1 PO (00:06)
[2024-02-11] MEDS ORDERED: OMEP20ER PO (00:19)
[2024-02-11] MEDS ORDERED: SODCHL1 PO (00:20)
[2024-02-11] MEDS ORDERED: MECL12.5 PO (00:23)
[2024-02-11] MEDS ORDERED: GLIP5 PO (00:26)
[2024-02-11] MEDS ORDERED: NEURONTIN40010 PO (00:28)
[2024-02-11 01:15] VITALS: BP 179/101
--- NOTE | 2024-02-11 05:34 | NUR ---
SHIFT SUMMARY PT IS ALERT AND ORIENTED TIMES 4. PT WAS ABLE TO MAKE NEEDS KNOWN. PT WAS TURNED AND REPOSITIONED PER HOSPITAL PROTOCOL. PT ON 500 ML FREE WATER ORDER. PT DENIED PAIN. PT TOOK HS MEDICATION.APPEARED TO SLEEP ON AND OFF THROUGHOUT THE NIGHT. BED IN LOW POSITION, CALL LIGHT WITHIN REACH, RAILS TIMES 2.
[2024-02-11 05:37] LABS: BASOPHILS ABSOLUTE AUTO 0.04 K/mm3 (0.00-0.23); BASOPHILS PERCENT AUTO 1 % (0-2); EOSINOPHILS ABSOLUTE AUTO 0.16 K/mm3 (0.00-0.68); EOSINOPHILS PERCENT AUTO 2 % (0-6); Hematocrit 37.3 % (33.0-51.0); Hemoglobin 13.3 g/dL (11.5-16.0); IMMATURE GRAN ABSOLUTE AUTO 0.03 K/mm3 (0.00-0.10); IMMATURE GRAN PERCENT AUTO 0 % (0-1); LYMPHOCYTES PERCENT AUTO 15 % (21-46); MONOCYTES ABSOLUTE AUTO 0.89 K/mm3 (0.16-1.47); MONOCYTES PERCENT AUTO 13 % (4-13); Mean Corpuscular HGB 31.9 pg (26.0-34.0); Mean Corpuscular HGB Conc 35.7 g/dL (31.5-36.5); Mean Corpuscular Volume 89 fL (80-100); Mean Platelet Volume 9.5 fL (9.1-12.4); NEUTROPHILS ABSOLUTE AUTO 4.76 K/mm3 (1.96-9.15); NEUTROPHILS PERCENT AUTO 69 % (41-73); Platelet Count 222 K/mm3 (150-400); RDW Coefficient Variation 13.4 % (11.7-14.2); RDW Standard Deviation 43.9 fL (35.1-46.3); Red Blood Cell Count 4.17 M/mm3 (3.80-5.20); White Blood Cell Count 6.88 K/mm3 (4.00-11.30)
[2024-02-11 06:10] LABS: Albumin, Blood 3.5 g/dL (3.4-5.0); Bilirubin, Total 0.7 mg/dL (0.1-1.0); Bun/Creatinine Ratio 20.7 (12.0-20.0); Calcium, Blood 9.4 mg/dL (8.5-10.1); Creatinine, Blood 0.72 mg/dL (0.40-1.00); Globulin, Blood 3.4 g/dL (2.2-4.0); Potassium, Blood 3.9 mmol/L (3.5-5.5); Total Protein, Blood 6.9 g/dL (6.4-8.2)
[2024-02-11 07:52] VITALS: BP 177/95
[2024-02-11] MEDS ORDERED: AmLODIPine Besylate 5 MG Tab PO ONE (09:50)
--- NOTE | 2024-02-11 11:03 | NUR ---
THIS NURSE SPOKE W/ DURING AM ROUND AND NOTIFIED HER OF PT'S ELEVATED BP. NEW ORDER RECEIVED AND MEDICATION GIVEN PER EMAR. PT ASYMPTOMATIC AT THIS TIME.
[2024-02-11] MEDS ORDERED: HydrALAZINE HCl 25 MG Tab PO SCH (13:00)
[2024-02-11 13:19] VITALS: BP 134/89
[2024-02-11 15:03] VITALS: BP 133/84
--- NOTE | 2024-02-11 17:54 | NUR ---
SHIFT SUMMARY PT HYPERTENSIVE THIS AM, BUT ASYMPTOMATIC. SEE PREVIOUS NOTE. NO OTHER ACUTE CHANGES. CALL LIGHT WITHIN REACH AND PT ABLE TO MAKE NEEDS KNOWN.
[2024-02-11 21:59] VITALS: BP 153/87
[2024-02-12 04:01] VITALS: BP 152/89
--- NOTE | 2024-02-12 04:49 | NUR ---
SHIFT SUMMARY PT IS ALERT AND ORIENTED TIMES 4. PT WAS ABLE TO MAKE NEEDS KNOWN. PT ASSISTED TO BEDSIDE COMMODE. PT ON 500 ML FREE WATER ORDER. PT DENIES PAIN. PT TOOK HS MEDICATION AND APPEARED TO SLEEP ON AND OFF THROUGHOUT THE NIGHT. BED IN LOW POSITION, CALL LIGHT WITHIN REACH, RAILS TIMES 2.
[2024-02-12 05:47] LABS: BASOPHILS ABSOLUTE AUTO 0.03 K/mm3 (0.00-0.23); BASOPHILS PERCENT AUTO 1 % (0-2); EOSINOPHILS ABSOLUTE AUTO 0.12 K/mm3 (0.00-0.68); EOSINOPHILS PERCENT AUTO 2 % (0-6); Hematocrit 32.8 % (33.0-51.0); Hemoglobin 11.6 g/dL (11.5-16.0); IMMATURE GRAN ABSOLUTE AUTO 0.04 K/mm3 (0.00-0.10); IMMATURE GRAN PERCENT AUTO 1 % (0-1); LYMPHOCYTES ABSOLUTE AUTO 0.98 K/mm3 (0.84-5.20); LYMPHOCYTES PERCENT AUTO 16 % (21-46); MONOCYTES ABSOLUTE AUTO 0.91 K/mm3 (0.16-1.47); MONOCYTES PERCENT AUTO 15 % (4-13); Mean Corpuscular HGB Conc 35.4 g/dL (31.5-36.5); Mean Corpuscular Volume 91 fL (80-100); Mean Platelet Volume 9.5 fL (9.1-12.4); NEUTROPHILS ABSOLUTE AUTO 4.13 K/mm3 (1.96-9.15); NEUTROPHILS PERCENT AUTO 67 % (41-73); Platelet Count 179 K/mm3 (150-400); RDW Coefficient Variation 13.3 % (11.7-14.2); RDW Standard Deviation 44.2 fL (35.1-46.3); Red Blood Cell Count 3.62 M/mm3 (3.80-5.20); White Blood Cell Count 6.21 K/mm3 (4.00-11.30)
[2024-02-12 06:11] LABS: Albumin/Globulin Ratio 0.9 (0.8-1.8); Bilirubin, Total 0.5 mg/dL (0.1-1.0); Calcium, Blood 9.1 mg/dL (8.5-10.1); Creatinine, Blood 0.72 mg/dL (0.40-1.00); Globulin, Blood 3.2 g/dL (2.2-4.0); Potassium, Blood 3.8 mmol/L (3.5-5.5); Total Protein, Blood 6.2 g/dL (6.4-8.2)
[2024-02-12] MEDS ORDERED: Docusate Sodium 100 MG Cap PO PRN (06:45)
[2024-02-12 07:27] VITALS: BP 138/81
--- NOTE | 2024-02-12 11:08 | NUR ---
ATTEMPTED TO CALL SON TO ASK QUESTIONS ABOUT MOTHERS BASELINE, LEFT VOICEMAIL.
[2024-02-12 13:17] VITALS: BP 136/92
[2024-02-12 14:55] VITALS: BP 129/73
[2024-02-12] MEDS ORDERED: HYDRA25 (15:47)
[2024-02-12] MEDS ORDERED: NYSTRIT TOP (15:48)
--- NOTE | 2024-02-12 18:05 | NUR ---
SHIFT SUMMARY PT A&OX3/4, COOPERATIVE, ABLE TO MAKE NEEDS KNOWN. PT EXPRESSED STOMACH PAIN, MEDICATED WITH ZOFRAN, PT REPORTS IT HELPED FOR 2 HOURS. PT WAS SUPPOSED TO DISCHARGE TODAY, WAS ASSISTED WITH APPEAL BY KYLAH DODGE. WILL BE LEAVING TOMORROW IS MY UDNERSTANDING. PT IS VERY HESITANT ABOUT GOING BACK HOME DUE TO NOT BEING ABLE TO SEE WELL. BED IN LOWEST POSITION, CALL LIGHT WITHIN REACH.
[2024-02-12 19:49] VITALS: BP 145/99
[2024-02-13] MEDS ORDERED: Acetaminophen 325 MG TABLET PO PRN (01:05)
[2024-02-13 05:31] VITALS: BP 152/81
--- NOTE | 2024-02-13 06:56 | NUR ---
SHIFT SUMMARY PT FEELING PARANOID. ASKED THIS RN TO CLOSE THE BLINDS IN HER ROOM. SHE ASKED "HE'S NOT GOING TO FIND ME HERE, IS HE?" THIS RN INFORMED HER THAT NO ONE WHO ISN'T SUPPOSED TO KNOW WHERE SHE IS WILL KNOW SHE IS HERE. PT MOVED TO BED APPROX. 0045. APPROX 0130, THIS RN WENT INTO THE PT ROOM TO MEDICATE FOR PAIN. WHEN TOLD SHE HAD TYLENOL ORDERED, SHE STATED "OH, NO. I CAN'T HAVE TYLENOL. I'M HIGHLY ALLERGIC." THIS RN LOOKED THROUGH PT CHART, AND NO ALLERGY WAS LISTED TO TYLENOL. WHEN ASKED WHAT HER REACTION WAS TO TYLENOL, SHE STATED "IT INTENSIFIES THE PAIN." THIS RN ASKED PT WHAT SHE NORMALLY TAKES AT HOME FOR PAIN, TO WHICH PT REPLIED, "I DON'T KNOW. SOMETIMES HYDROCODONE." THIS RN INFORMED PT THAT HYDROCODONE CONTAINS TYLENOL, AND SHE RESPONDED WITH "WHAT ABOUT OXY. OXYCODONE. THAT ONE DOESN'T HAVE TYLENOL IN IT RIGHT?" WHEN THIS RN AGREED, PT STATED "JUST GIVE ME A LORAZEPAM." RN INFORMED PT LORAZEPAM WOULD NOT BE ADMINISTERED FOR PAIN, ALSO THAT IT IS SCHEDULED FOR 0900, AND SHE HAS ALREADY HAD 150MG OF SEROQUEL THIS EVENING, SO SHE WOULD NEED TO WAIT UNTIL HER OTHER MEDICATIONS WERE SCHEDULED FOR. THE INFORMED THIS RN THAT "SOMETIMES I TAKE THAT AT HOME." THIS RN ASKED THE PT IF SHE TOOK SOMETHING AT HOME WHICH WAS NOT PRESCRIBED TO HER. PT REPLIED, "WELL, MAYBE." THIS RN RETURNED TYLENOL TO XIS AND INFORMED CONDITIONING MACHINE OPERATOR OF SITUATION. INFORMED PT SHE WILL NEED TO DISCUSS PAIN MANAGEMENT WITH HER PRIMARY, THE PLAN IS TO DC TODAY. WILL RELAY TO DAY NURSE.
[2024-02-13 07:53] VITALS: BP 147/84
--- NOTE | 2024-02-13 11:35 | NUR ---
Spiritual Care Consult: Referred by Dr. Flores Pt is sitting up in a chair when the metal patternmaker makes his visit. Pt. displays evidence of being soft spoken as well as anxious about her safety upon discharge. Pt. displays some confusion as she verbalizes her life story, but does display some anxiety about her past. Listen with empathy and a calming presence. Pt. verbalizes that she is a person of krista. Consider matters of krista and belief. Prayed with the Pt. Will remain available to the Pt.
[2024-02-13 13:45] VITALS: BP 141/89
[2024-02-13 19:17] VITALS: BP 147/85
[2024-02-14 04:17] VITALS: BP 177/95
--- NOTE | 2024-02-14 06:51 | NUR ---
SHIFT SUMMARY AT START OF SHIFT, PT SITTING UP IN CHAIR. PT STARING INTO CORNER OF HER ROOM. ASKING ABOUT MAKING SURE HER SON WAS SAFE. REQUESTED BATHROOM DOOR AND BLINDS CLOSED. AFTER MEDICATION ADMINISTRATION, PT UP TO BATHROOM, THEN BACK TO BED AND SLEEPING SOUNDLY. PT WOKE FOR MEDICATION ADMINISTRATION, BUT OTHERWISE SLEPT.
[2024-02-14 07:18] VITALS: BP 169/93
[2024-02-14 13:45] VITALS: BP 138/78
[2024-02-14 15:52] VITALS: BP 146/88
[2024-02-14 17:03] LABS: BASOPHILS ABSOLUTE AUTO 0.05 K/mm3 (0.00-0.23); BASOPHILS PERCENT AUTO 1 % (0-2); EOSINOPHILS ABSOLUTE AUTO 0.11 K/mm3 (0.00-0.68); EOSINOPHILS PERCENT AUTO 1 % (0-6); Hematocrit 36.4 % (33.0-51.0); Hemoglobin 12.8 g/dL (11.5-16.0); IMMATURE GRAN ABSOLUTE AUTO 0.04 K/mm3 (0.00-0.10); IMMATURE GRAN PERCENT AUTO 1 % (0-1); LYMPHOCYTES ABSOLUTE AUTO 1.28 K/mm3 (0.84-5.20); LYMPHOCYTES PERCENT AUTO 16 % (21-46); MONOCYTES ABSOLUTE AUTO 1.18 K/mm3 (0.16-1.47); MONOCYTES PERCENT AUTO 15 % (4-13); Mean Corpuscular HGB 32.2 pg (26.0-34.0); Mean Corpuscular HGB Conc 35.2 g/dL (31.5-36.5); Mean Corpuscular Volume 92 fL (80-100); Mean Platelet Volume 9.3 fL (9.1-12.4); NEUTROPHILS ABSOLUTE AUTO 5.31 K/mm3 (1.96-9.15); NEUTROPHILS PERCENT AUTO 67 % (41-73); Platelet Count 253 K/mm3 (150-400); RDW Coefficient Variation 13.2 % (11.7-14.2); Red Blood Cell Count 3.97 M/mm3 (3.80-5.20); White Blood Cell Count 7.97 K/mm3 (4.00-11.30)
[2024-02-14 17:29] LABS: Albumin, Blood 3.3 g/dL (3.4-5.0); Albumin/Globulin Ratio 0.9 (0.8-1.8); Bilirubin, Total 0.6 mg/dL (0.1-1.0); Bun/Creatinine Ratio 33.9 (12.0-20.0); Calcium, Blood 9.3 mg/dL (8.5-10.1); Creatinine, Blood 0.8 mg/dL (0.40-1.00); Globulin, Blood 3.8 g/dL (2.2-4.0); Potassium, Blood 3.8 mmol/L (3.5-5.5); Total Protein, Blood 7.1 g/dL (6.4-8.2)
--- NOTE | 2024-02-14 17:42 | NUR ---
SUMMARY- PT ALERT AND ORIENTED X2-3, HAVING PARRANOID THINKING. PT HAS BEEN UP IN CHAIR MOST OF THE DAY. TOLERATING FOOD AND FLUIDS. SON CAME FROM [place], STAFF FROM THE [place] CON[employer]ED WITH CASE MANAGEMENT TO TRY TO FACIITATE PT MOVING IN A NEW RESIDENT PT'S SAFETY AT HOME HAS BEEN IN QUESTION. SHY WILL COME AND EVAL TOMORROW AND EARLIEST MOVE WILL BE MONDAY. PT FREQ SETS OFF CHAIR ALARM BUT HAS ADQ STRENGTH AND USES WALKER, STAFF ABLE TO MEET PT MIDWAY AND ASSIST UAUALLY TO BATHROOM. TELE REMAINS SR 70'S TODAY, BP REMAINS STABLE, SBP 160'S THIS AM AND DOWN TO SBP 130'S AFTER AM MEDS. WILL REPORT TO CÉSAR DODGE
[2024-02-14 19:09] VITALS: BP 171/83
[2024-02-15 03:31] VITALS: BP 164/93
--- NOTE | 2024-02-15 03:59 | NUR ---
SHIFT SUMMARY 73 YR F ADMITTED ON 02/08/24. FULL CODE. PT WAS CONTINUALLY ATTEMPTING TO GET OUT OF BED WITHOUT ASSISTANCE AND SETTING OFF THE BED ALARM. SHE WAS NOT EASILY REDIRECTABLE AND WAS ULTIMATELY PUT IN A GREER VEST FOR HER OWN SAFETY. SHE WAS VERY ANTSY AND TRYING TO GET OUT OF THE GREER SO THIS NURSE DID HER CHARTING WHILE SITTING IN THE ROOM W/ THE PT. PT DID MUCH BETTER WITH SOMEONE THERE WITH HER. SUGGESTION WAS MADE TO CHARGE NURSE REGARDING GETTING A SITTER FOR THE PT TOMARROW.
[2024-02-15 05:41] LABS: BASOPHILS ABSOLUTE AUTO 0.03 K/mm3 (0.00-0.23); BASOPHILS PERCENT AUTO 1 % (0-2); EOSINOPHILS ABSOLUTE AUTO 0.09 K/mm3 (0.00-0.68); EOSINOPHILS PERCENT AUTO 2 % (0-6); Hematocrit 32.8 % (33.0-51.0); Hemoglobin 11.5 g/dL (11.5-16.0); IMMATURE GRAN ABSOLUTE AUTO 0.02 K/mm3 (0.00-0.10); IMMATURE GRAN PERCENT AUTO 0 % (0-1); LYMPHOCYTES ABSOLUTE AUTO 0.97 K/mm3 (0.84-5.20); LYMPHOCYTES PERCENT AUTO 17 % (21-46); MONOCYTES PERCENT AUTO 16 % (4-13); Mean Corpuscular HGB 31.6 pg (26.0-34.0); Mean Corpuscular HGB Conc 35.1 g/dL (31.5-36.5); Mean Corpuscular Volume 90 fL (80-100); Mean Platelet Volume 9.8 fL (9.1-12.4); NEUTROPHILS ABSOLUTE AUTO 3.58 K/mm3 (1.96-9.15); NEUTROPHILS PERCENT AUTO 64 % (41-73); Platelet Count 185 K/mm3 (150-400); RDW Coefficient Variation 13.1 % (11.7-14.2); RDW Standard Deviation 43.1 fL (35.1-46.3); Red Blood Cell Count 3.64 M/mm3 (3.80-5.20); White Blood Cell Count 5.59 K/mm3 (4.00-11.30)
[2024-02-15 07:10] LABS: Albumin/Globulin Ratio 0.9 (0.8-1.8); Bilirubin, Total 0.6 mg/dL (0.1-1.0); Bun/Creatinine Ratio 33.2 (12.0-20.0); Creatinine, Blood 0.6 mg/dL (0.40-1.00); Globulin, Blood 3.3 g/dL (2.2-4.0); Potassium, Blood 3.5 mmol/L (3.5-5.5); Total Protein, Blood 6.3 g/dL (6.4-8.2)
[2024-02-15 07:22] VITALS: BP 180/96
--- NOTE | 2024-02-15 11:08 | NUR ---
Ethics consult order received and processed. Concerns expressed relating to the safe disposition of the principal. The Care Coordination Office reports that the IM / DND forms have been filed, and [facility] has issued formal approval for the discharge of the principal on the grounds that she is medically stable and no longer in need of acute level service. Under the conditions described, it is ethically permissible to discharge the principal, if she is compos mentis and prefers to return to her domicile; or if her capacity is adequately intact and we have harm reducing safeguards in place e.g. sufficient agency or in-home services; or we have received good krista assurances from the family that such protective measures if necessary, will be taken by them to mitigate risk of harm to the principal in the post acute setting. Thank you for this consult. Timur Aviles, PhD, JASSI
[2024-02-15 14:23] VITALS: BP 142/84
[2024-02-15 16:02] VITALS: BP 148/76
--- NOTE | 2024-02-15 18:19 | NUR ---
PT IS ALERT TO SELF AND SON, GLADIS. WITH A 1:1 SITTER THROUGH OUT THE SHIFT. LUIS ALBERTO IS ON ROOM AIR, POWERGLIDE TO LEFT UPPER ARM THAT DRAWS BLOOD AND FLUSHES WELL. SHE IS UNABLE TO LIVE ALONE DUE TO HISTORY OF CONFUSION. PT MAKES STATEMENTS LIKE, "HE IS GOING TO HURT ME", "I HAVE TO BE QUIET SO I DON'T GET IN TROUBLE." PARANOID DELUSIONS. AMBULATED WITH SBA TO BATHROOM. NO INCONTINCE NOTED. SEE CARE COORDINATION NOTES FOR DETAILS OF D/C PLAN AND COMPLICATING FACTORS. TELE REPORTS SINUS RHYTHM IN THE 80'S.
[2024-02-15 20:22] VITALS: BP 172/95
[2024-02-15] MEDS ORDERED: Isosorbide Mono30 MG PO (22:18)
[2024-02-15] MEDS ORDERED: METO25 PO (22:21)
[2024-02-15] MEDS ORDERED: POTCHL20ER PO (22:22)
[2024-02-15] MEDS ORDERED: FURO80 (22:23)
[2024-02-15] MEDS ORDERED: MESALAMINE PO ×2 (22:25→22:27)
[2024-02-15] MEDS ORDERED: LORA.5 PO (22:35)
[2024-02-15] MEDS ORDERED: FURO20 PO (22:41)
[2024-02-16 06:35] VITALS: BP 148/79
[2024-02-16 06:39] LABS: BASOPHILS ABSOLUTE AUTO 0.06 K/mm3 (0.00-0.23); BASOPHILS PERCENT AUTO 1 % (0-2); EOSINOPHILS ABSOLUTE AUTO 0.14 K/mm3 (0.00-0.68); EOSINOPHILS PERCENT AUTO 3 % (0-6); Hematocrit 32.4 % (33.0-51.0); Hemoglobin 11.3 g/dL (11.5-16.0); IMMATURE GRAN ABSOLUTE AUTO 0.03 K/mm3 (0.00-0.10); IMMATURE GRAN PERCENT AUTO 1 % (0-1); LYMPHOCYTES ABSOLUTE AUTO 1.12 K/mm3 (0.84-5.20); LYMPHOCYTES PERCENT AUTO 20 % (21-46); MONOCYTES ABSOLUTE AUTO 0.87 K/mm3 (0.16-1.47); MONOCYTES PERCENT AUTO 16 % (4-13); Mean Corpuscular HGB 31.5 pg (26.0-34.0); Mean Corpuscular HGB Conc 34.9 g/dL (31.5-36.5); Mean Corpuscular Volume 90 fL (80-100); Mean Platelet Volume 9.8 fL (9.1-12.4); NEUTROPHILS ABSOLUTE AUTO 3.41 K/mm3 (1.96-9.15); NEUTROPHILS PERCENT AUTO 61 % (41-73); Platelet Count 215 K/mm3 (150-400); RDW Coefficient Variation 13.1 % (11.7-14.2); RDW Standard Deviation 43.3 fL (35.1-46.3); Red Blood Cell Count 3.59 M/mm3 (3.80-5.20); White Blood Cell Count 5.63 K/mm3 (4.00-11.30)
--- NOTE | 2024-02-16 06:44 | NUR ---
Shift Summary Pt AOx1-2, difficulty answering questions, often nods yes or no. Slept very heavily t/o most the night not waking up for anything. Woke up this morning and was assisted to the BR where she voided. 1:1 sitter t/o most of the night. No acute changes.
[2024-02-16 06:56] LABS: Albumin, Blood 3.1 g/dL (3.4-5.0); Albumin/Globulin Ratio 0.9 (0.8-1.8); Bilirubin, Total 0.7 mg/dL (0.1-1.0); Bun/Creatinine Ratio 34.9 (12.0-20.0); Calcium, Blood 9.2 mg/dL (8.5-10.1); Creatinine, Blood 0.72 mg/dL (0.40-1.00); Globulin, Blood 3.3 g/dL (2.2-4.0); Potassium, Blood 3.7 mmol/L (3.5-5.5); Total Protein, Blood 6.4 g/dL (6.4-8.2)
[2024-02-16 07:23] VITALS: BP 144/74
--- NOTE | 2024-02-16 08:55 | NUR ---
NOTE: AT 0827 RE[facility] A [facility] [employer]. PER ANMOL PATIENT FROM SR CONVERTED TO AFIB HR RANGES 120-150'S BPM. PATIENT RECEIVED AM SCHEDULED MEDS PER EMAR. DR. SYLVESTER NOTIFIED DURING AM ROUNDING, NO NEW ORDERS RECEIVED.
--- NOTE | 2024-02-16 11:40 | NUR ---
Spiritual Care Visit. Pt is sitting up when she welcomes my visit. Pt. displays evidence of confusion, but verbalized a desire to have her [facility] changed. Pt. would want to converse for a very long time, so this boat finisher prayed for the Pt. Pt. verbalized gratitude for the spiritual care visit.
[2024-02-16 14:08] VITALS: BP 129/89
[2024-02-16] MEDS ORDERED: LORazepam 0.5 MG Tab PO ONE (16:00)
--- NOTE | 2024-02-16 16:43 | NUR ---
SHIFT SUMMARY: PT AOX1-2 WAXING AND WANNING MENTATION. HAS BEEN VERY ANXIOUS AND IN THE AFTERNOON STARTED TALKING TO HERSELF AND SHOUTING INTO HER ROOM. EXPEREINCING VISUAL AND AUDITORY HALLUCINATIONS, BUT HAS NOT BEEN IMPULSIVE. STILL CALLS IF SOMETHING IS NEEDED. TELE CALLED WITH PT SUSTAINING AFIB IN THE 140'S, MEDICATED PER EMR AND NOW SUSTAINING AFIB IN THE 70'S. FAMILY CAME TO VISIT AND WORKED WITH CARE MANAGEMENT IN ORDER TO CREATE A DISCHARGE PLAN. PT TO GO HOME WITH SON AND DAUGHTER IN [place] TAKING CARE OF HER AT HOME W HOME HEALTH. PT RESTING IN CHAIR AND REPOSITIONED SEVERAL TIMES. HAD A BOUT OF ANXIETY AND VOCALIZING LOUDLY WITH HALLUCINATIONS. MD NOTIFIED AND ONE TIME ATIVAN ORDERED. PT RESPONDED WELL. RESTING IN CHAIR, CALL LIGHT IN REACH. CONTINUING CARE.
[2024-02-16 19:12] VITALS: BP 98/58
[2024-02-16] MEDS ORDERED: LORazepam 1 MG Tab PO SCH (21:00)
[2024-02-16] MEDS ORDERED: Gabapentin 400 MG Cap PO SCH (21:00)
[2024-02-17 02:12] VITALS: BP 129/80
[2024-02-17 04:13] VITALS: BP 151/107
[2024-02-17 07:03] VITALS: BP 139/76
[2024-02-17 07:11] LABS: BASOPHILS ABSOLUTE AUTO 0.05 K/mm3 (0.00-0.23); BASOPHILS PERCENT AUTO 1 % (0-2); EOSINOPHILS ABSOLUTE AUTO 0.12 K/mm3 (0.00-0.68); EOSINOPHILS PERCENT AUTO 2 % (0-6); Hematocrit 35.7 % (33.0-51.0); Hemoglobin 12.3 g/dL (11.5-16.0); IMMATURE GRAN ABSOLUTE AUTO 0.05 K/mm3 (0.00-0.10); IMMATURE GRAN PERCENT AUTO 1 % (0-1); LYMPHOCYTES ABSOLUTE AUTO 1.09 K/mm3 (0.84-5.20); LYMPHOCYTES PERCENT AUTO 16 % (21-46); MONOCYTES ABSOLUTE AUTO 0.96 K/mm3 (0.16-1.47); MONOCYTES PERCENT AUTO 14 % (4-13); Mean Corpuscular HGB 31.4 pg (26.0-34.0); Mean Corpuscular HGB Conc 34.5 g/dL (31.5-36.5); Mean Corpuscular Volume 91 fL (80-100); Mean Platelet Volume 9.5 fL (9.1-12.4); NEUTROPHILS ABSOLUTE AUTO 4.65 K/mm3 (1.96-9.15); NEUTROPHILS PERCENT AUTO 67 % (41-73); Platelet Count 274 K/mm3 (150-400); RDW Coefficient Variation 13.1 % (11.7-14.2); RDW Standard Deviation 43.8 fL (35.1-46.3); Red Blood Cell Count 3.92 M/mm3 (3.80-5.20); White Blood Cell Count 6.92 K/mm3 (4.00-11.30)
--- NOTE | 2024-02-17 07:27 | NUR ---
Shift Summary PT BP low at the start of the shift, 98/54. Help blood pressure medications at 2100. BP at 0200 was 120/82, and at 0400 151/101, this AM at 0600 it was 141/83. Did not give PRN hydralazine as systolic BP did not reach 160. Pt AOx1, started the night very paranoid and anxious. She asked me to not give her Seroquel so I did not. She did rcv her new scheduled 1 mg Ativan and she was able to sleep well t/o the night w/o any issues. Tele did call once this morning, pt HR briefly went up to 150s.
[2024-02-17 07:44] LABS: Albumin, Blood 3.2 g/dL (3.4-5.0); Albumin/Globulin Ratio 0.9 (0.8-1.8); Bilirubin, Total 0.5 mg/dL (0.1-1.0); Bun/Creatinine Ratio 45.7 (12.0-20.0); Calcium, Blood 9.4 mg/dL (8.5-10.1); Creatinine, Blood 0.68 mg/dL (0.40-1.00); Globulin, Blood 3.6 g/dL (2.2-4.0); Total Protein, Blood 6.8 g/dL (6.4-8.2)
[2024-02-17 13:34] VITALS: BP 131/88
[2024-02-17 14:53] VITALS: BP 114/76
--- NOTE | 2024-02-17 17:43 | NUR ---
SHIFT SUMMARY: PATIENT A/O TO SELF ONLY, CALM, PLEASANT AND COOPERATIVE c CARE ALL SHIFT. PATIENT DENIES CP/PRESSURE, SOB, N/V AND DIZZINESS. AT AROUND 10'SH RECEIVED A CALL FROM [facility], PATIENT HR WENT UP TO 150'S BRIEFLY AND BOUNCH BACK TO LOW 110'S BPM-AFIB, NO EVENTS AFTER THIS AM. PATIENT STILL AFIB HR RANGES 70'S-100'S T/O SHIFT. PATIENT RECEIVED SCHEDULED MEDS PER EMAR. PATIENT HAS MOD APPETITE, CONTINENT OF BOWEL/BLADDER AND AMBULATES TO BATHROOM c FWW/SBA. PATIENT SAT UP IN THE RECLINER CHAIR ALL SHIFT. VITAL SIGNS REVIEWED. CHAIR ALARM ON FOR SAFETY. CALL LIGHT IN REACH. PATIENT SISTER CAME BY THIS AM AND STAYED FOR 30 MNS. PATIENT SON (MAYR) CAME BY AT AROUND 1700, STAYED FOR AN HR. PER MARY (SON) HE IS CLEANING THE HOUSE TODAY AND TOMORROW, GETTING SUPPLIES AND HIS HOPING READY FOR HER MOM DISCHARGE HOME ON MONDAY. MARY ALSO REPORTS HE GOT APPROVED FROM [place] FOR THREE MONTHS TO CARE FOR HIS MOM.
[2024-02-17 19:26] VITALS: BP 146/93
[2024-02-18 03:52] VITALS: BP 87/68
[2024-02-18 04:04] VITALS: BP 102/66
--- NOTE | 2024-02-18 04:52 | NUR ---
SHIFT SUMMARY PT ALERT TO SELF. FEARFUL AND PARANOID AT START OF SHIFT. PT THOUGHT LOUD NOISES IN STRAUSS WERE "SHOTS" AND WAS TREMBLING AND TEARFUL AT TIMES. PT REASURED THAT SHE WAS SAFE AND WAS ABLE TO SETTLE DOWN ONCE IN BED FOR THE NIGHT. REAMINS IN A-FIB IN THE 90's ON TELE AND HR JUMPED UP TO 150'S WHEN AMBULATING TO BATHROOM. NO C/O PAIN. SLOW TO RESPOND AND REDIRECT. SLEPT IN BED MOST OF NIGHT. VSS. BED ALARM ON. BED IN LOWEST POSITION AND CALL LIGHT IN REACH.
[2024-02-18 06:47] LABS: BASOPHILS ABSOLUTE AUTO 0.03 K/mm3 (0.00-0.23); BASOPHILS PERCENT AUTO 1 % (0-2); EOSINOPHILS ABSOLUTE AUTO 0.12 K/mm3 (0.00-0.68); EOSINOPHILS PERCENT AUTO 2 % (0-6); Hematocrit 32.5 % (33.0-51.0); Hemoglobin 11.3 g/dL (11.5-16.0); IMMATURE GRAN ABSOLUTE AUTO 0.03 K/mm3 (0.00-0.10); IMMATURE GRAN PERCENT AUTO 1 % (0-1); LYMPHOCYTES ABSOLUTE AUTO 1.53 K/mm3 (0.84-5.20); LYMPHOCYTES PERCENT AUTO 27 % (21-46); MONOCYTES ABSOLUTE AUTO 0.99 K/mm3 (0.16-1.47); MONOCYTES PERCENT AUTO 18 % (4-13); Mean Corpuscular HGB 31.7 pg (26.0-34.0); Mean Corpuscular HGB Conc 34.8 g/dL (31.5-36.5); Mean Corpuscular Volume 91 fL (80-100); Mean Platelet Volume 9.9 fL (9.1-12.4); NEUTROPHILS ABSOLUTE AUTO 2.97 K/mm3 (1.96-9.15); NEUTROPHILS PERCENT AUTO 52 % (41-73); Platelet Count 244 K/mm3 (150-400); RDW Coefficient Variation 13.1 % (11.7-14.2); RDW Standard Deviation 43.8 fL (35.1-46.3); Red Blood Cell Count 3.57 M/mm3 (3.80-5.20); White Blood Cell Count 5.67 K/mm3 (4.00-11.30)
[2024-02-18 07:18] LABS: Albumin, Blood 2.8 g/dL (3.4-5.0); Albumin/Globulin Ratio 0.9 (0.8-1.8); Bilirubin, Total 0.5 mg/dL (0.1-1.0); Bun/Creatinine Ratio 42.9 (12.0-20.0); Calcium, Blood 9.2 mg/dL (8.5-10.1); Creatinine, Blood 0.77 mg/dL (0.40-1.00); Globulin, Blood 3.1 g/dL (2.2-4.0); Potassium, Blood 3.7 mmol/L (3.5-5.5); Total Protein, Blood 5.9 g/dL (6.4-8.2)
[2024-02-18 08:08] VITALS: BP 137/99
[2024-02-18 15:25] VITALS: BP 111/56
[2024-02-18 15:26] VITALS: BP 111/56
--- NOTE | 2024-02-18 17:19 | NUR ---
SHIFT SUMMARY PATIENT ABLE TO SIT IN CHAIR AND AMBULATE TO BATHROOM WITH 1 ASSIST. SON IN TO VISIT, STATING HE WOULD LIKE TO TAKE HER HOME, IS GOING TO TAKE FMLA TO FACILITATE HOME DISCHARGE. PATIENT A/O X1-2. CONFUSED AND THINKS SOMEONE IS SHOOTING GUNS IN THE HALLWAY. PLEASANT, COOPERATIVE WITH CARES. DOESN'T USE CALL LIGHT, NOT ABLE TO MAKE NEEDS KNOWN. CARES ONGOING.
[2024-02-18 19:26] VITALS: BP 111/76
[2024-02-19 03:07] VITALS: BP 106/69
--- NOTE | 2024-02-19 05:00 | NUR ---
SHIFT SUMMARY PATIENT COPPERATIVE, BUT PARANOID BEHAVIORS. SLEPT IN RECLINER ALL NIGHT BP WNL.WAS 2PERSON/GAITBELT/ FWW TO AMBULATE TO BR.
[2024-02-19 07:17] VITALS: BP 118/94
[2024-02-19] MEDS ORDERED: ASPI81CH PO (13:39)
[2024-02-19] MEDS ORDERED: ATEN50 PO (13:41)
[2024-02-19] MEDS ORDERED: FOLI1 PO (13:42)
[2024-02-19] MEDS ORDERED: DILT120 PO (13:42)
[2024-02-19] MEDS ORDERED: GLIP2.5ER PO (13:45)
[2024-02-19] MEDS ORDERED: HYDRA25 PO (13:45)
[2024-02-19] MEDS ORDERED: NYSTRIT TOP (13:48)
[2024-02-19] MEDS ORDERED: SODCHL1 PO (13:48)
[2024-02-19 14:27] VITALS: BP 133/82
--- NOTE | 2024-02-19 15:26 | NUR ---
DISCHARGE NOTE PT DISCHARGED HOME AT 1520. PT AND PT'S FAMILY PROVIDED W/ VERBAL AND WRITTEN INSTRUCTIONS AND REPORTED UNDERSTANDING. PT A&O TO SELF/PLACE, VSS, AMB W/ ASSIST, TOLERATING PO, VOIDING, AND DENIED PAIN. BELONGINGS WERE RETURNED. THIS NURSE EDUCATED PT'S SON EXTENSIVELY ON PT'S MEDICATIONS, ADA DIET, AND SAFE MOBILITY. PT ESCOURTED OUT VIA W/C BY FAMILY.
--- NOTE | 2024-02-19 17:23 | NUR ---
INFORMED SON HAD A QUESTION ABOUT PT MEDICATIONS PRESCRIPTION. THIS NURSE ATTEMPTED TO CALL SON, BUT THEY DID NOT CERTIFICATION TECHNICIAN THE PHONE AND THE VOICEMAIL BOX WAS FULL, UNABLE TO LEAVE VOICEMAIL. INFORMED SCHUYLER DODGE.
== END 2024-02-19 15:23 | disposition home health service (06) | DRG 78 ==
LOC: ER 00:17 → ICUE 04:06 → ERHOLD 04:06 → MEDS 04:06 → ICUE 07:45 → MEDS 02-10 13:21
PROVIDERS: Emergency Medicine; Family Medicine; Internal Medicine; ADMIT Student in an Organized Health Care Education/Training Program
DX: I67.4 Hypertensive encephalopathy (principal); E87.1 Hypo-osmolality and hyponatremia; I16.1 Hypertensive emergency; I50.32 Chronic diastolic (congestive) heart failure; K51.90 Ulcerative colitis, unspecified, without complications; I11.0 Hypertensive heart disease with heart failure; I48.0 Paroxysmal atrial fibrillation; I25.10 Atherosclerotic heart disease of native coronary artery without angina pectoris; L30.4 Erythema intertrigo; E03.9 Hypothyroidism, unspecified; F41.9 Anxiety disorder, unspecified; E11.42 Type 2 diabetes mellitus with diabetic polyneuropathy; K21.9 Gastro-esophageal reflux disease without esophagitis; D63.1 Anemia in chronic kidney disease; I25.2 Old myocardial infarction; Z95.2 Presence of prosthetic heart valve; Z90.710 Acquired absence of both cervix and uterus; Z90.49 Acquired absence of other specified parts of digestive tract; Z87.891 Personal history of nicotine dependence; Z91.040 Latex allergy status; Z88.2 Allergy status to sulfonamides; Z88.1 Allergy status to other antibiotic agents; Z79.82 Long term (current) use of aspirin; Z79.01 Long term (current) use of anticoagulants; Z79.899 Other long term (current) drug therapy
CPT/HCPCS: 36415; 70450; 71045; 80048; 80053; 80320; 82140; 82947; 83880; 84439; 84443; 84484; 85007; 85025; 85027; 93005; 93010; 93306; 94760; 96374; 97110; 97116; 97162; 97530; 99285-25; A9270; C1751; J0360; J2405; J3480; J7050

== ENCOUNTER 2024-02-24 02:07 | Inpatient (IN) | payer MEDICARE ==
[~2024-02-24] VITALS: Ht 165.1 cm; Wt 111.0 kg
[~2024-02-24 02:07] MED LIST changes: +ASPI81CH PO; +EUTHYROX100 MC1 PO; +FURO40 PO; +FURO80; +GLIP5 PO; +HYDRA25; +HYDRA25 PO; +MESALAMINE PO; +NYSTATIN TOP; +NYSTRIT TOP
[2024-02-24 03:38] LABS: BASOPHILS ABSOLUTE AUTO 0.06 K/mm3 (0.00-0.23); BASOPHILS PERCENT AUTO 1 % (0-2); EOSINOPHILS ABSOLUTE AUTO 0.15 K/mm3 (0.00-0.68); EOSINOPHILS PERCENT AUTO 2 % (0-6); Hematocrit 26.1 % (33.0-51.0); Hemoglobin 8.8 g/dL (11.5-16.0); IMMATURE GRAN ABSOLUTE AUTO 0.08 K/mm3 (0.00-0.10); IMMATURE GRAN PERCENT AUTO 1 % (0-1); LYMPHOCYTES ABSOLUTE AUTO 1.61 K/mm3 (0.84-5.20); LYMPHOCYTES PERCENT AUTO 22 % (21-46); MONOCYTES ABSOLUTE AUTO 0.86 K/mm3 (0.16-1.47); MONOCYTES PERCENT AUTO 12 % (4-13); Mean Corpuscular HGB 31.5 pg (26.0-34.0); Mean Corpuscular HGB Conc 33.7 g/dL (31.5-36.5); Mean Corpuscular Volume 94 fL (80-100); Mean Platelet Volume 10.3 fL (9.1-12.4); NEUTROPHILS ABSOLUTE AUTO 4.62 K/mm3 (1.96-9.15); NEUTROPHILS PERCENT AUTO 63 % (41-73); Platelet Count 249 K/mm3 (150-400); RDW Coefficient Variation 13.2 % (11.7-14.2); RDW Standard Deviation 45.1 fL (35.1-46.3); Red Blood Cell Count 2.79 M/mm3 (3.80-5.20); White Blood Cell Count 7.38 K/mm3 (4.00-11.30)
[2024-02-24 03:57] LABS: International Normalized Ratio 1.08; Prothrombin Time Results 11.5 Sec (9.7-11.5)
[2024-02-24 04:01] LABS: Albumin, Blood 2.7 g/dL (3.4-5.0); Albumin/Globulin Ratio 0.9 (0.8-1.8); Bilirubin, Total 0.3 mg/dL (0.1-1.0); Bun/Creatinine Ratio 30.4 (12.0-20.0); Creatinine, Blood 0.92 mg/dL (0.40-1.00); Potassium, Blood 4.1 mmol/L (3.5-5.5); Total Protein, Blood 5.7 g/dL (6.4-8.2)
[2024-02-24] MEDS ORDERED: Ondansetron HCl 2 MG / ML 2ML Vial IV PRN (06:30)
[2024-02-24] MEDS ORDERED: FLU VACC TS2024-25(6MOS UP)/PF 45 MCG/0.5 ML SYRINGE IM ONE (06:30)
[2024-02-24] MEDS ORDERED: NS 1,000 ML IV SCH (06:30)
[2024-02-24] MEDS ORDERED: Pantoprazole Sodium 40 MG in NS 50 ML IV SCH (06:50)
[2024-02-24 07:16] LABS: Hematocrit 25.4 % (33.0-51.0); Hemoglobin 8.6 g/dL (11.5-16.0)
[2024-02-24] MEDS ORDERED: LISI20 PO (08:49)
[2024-02-24] MEDS ORDERED: Sodium Chloride 1 GM TAB PO SCH (09:00)
[2024-02-24] MEDS ORDERED: Atenolol 25 MG Tab PO SCH (09:00)
[2024-02-24] MEDS ORDERED: HydrALAZINE HCl 25 MG Tab PO SCH (09:00)
[2024-02-24] MEDS ORDERED: Levothyroxine Sodium 0.1 MG Tab PO SCH (09:00)
[2024-02-24] MEDS ORDERED: dilTIAZem HCL 120 MG CAP.CD PO SCH (09:00)
[2024-02-24] MEDS ORDERED: CloNIDine 0.1 MG Tab PO SCH (09:00)
[2024-02-24] MEDS ORDERED: LamoTRIgine 25 MG Tab PO SCH (09:00)
[2024-02-24] MEDS ORDERED: Lisinopril 20 MG Tab PO SCH (09:00)
[2024-02-24] MEDS ORDERED: Furosemide 40 MG Tab PO SCH (09:00)
[2024-02-24] MEDS ORDERED: Potassium Chloride 20 MEQ TabCR PO SCH (09:00)
--- NOTE | 2024-02-24 09:00 | NUR ---
ADMISSION NOTE PATIENT ARRIVED TO ROOM 364 VIA GURNEY WITH SON, MARY, AND DAUGHTER IN LAW, KRISTEN THIS MORNING. PATIENT A/OX4 BUT CONFUSED AND PATIENT FAMILY STATES HISTORY OF SCHIZOAFFECTIVE DISORDER WITH HALLUCINATIONS. PATIENT ANXIOUS BUT PLEASANT AND COOPERATIVE, CALLS FOR ASSISTANCE APPROPRIATELY. ADMITTED WITH MELENA. PATIENT ORIENTED TO CALL LIGHT AND ADMISSION DOCUMENATION COMPLETED. PRESSURE INJURY NOTED TO BUTTOCK, PICTURES OBTAINED AND IN PAPER CHART. NO OTHER CONCERNS AT THIS TIME.
[2024-02-24 10:00] VITALS: BP 130/78
[2024-02-24] MEDS ORDERED: Insulin Human Lispro 100 Units/ML 3ML Syringe SC SCH (11:30)
[2024-02-24 12:18] VITALS: BP 111/95
[2024-02-24] MEDS ORDERED: Peg/Electrolytes 4,000 ML BTL PO ONE (12:20)
[2024-02-24 13:20] LABS: Hematocrit 22.6 % (33.0-51.0); Hemoglobin 7.7 g/dL (11.5-16.0)
[2024-02-24 15:59] VITALS: BP 108/80
[2024-02-24 18:36] LABS: Hematocrit 22.8 % (33.0-51.0); Hemoglobin 7.6 g/dL (11.5-16.0)
--- NOTE | 2024-02-24 18:44 | NUR ---
SHIFT SUMMARY PATIENT A/OX4, CONTINUES WITH ANXIETY, BUT CONSOLABLE. FAMILY CAME TO VISIT PATIENT TWICE THIS SHIFT AN UPDATED ON PATIENT STATUS. PLAN TO HAVE COLONOSCOPY TOMORROW, GOLYTELY STARTED AROUND NOON TODAY, PATIENT NOT TOLERATING WELL AND HAS NOT COMPLETELY FINISHED AT THIS TIME. HAS HAD MULTIPLE WATERY BLACK STOOLS THIS SHIFT. TRENDING H/H, HAS DROPPED FROM 8.8 TO 7.6 THIS SHIFT. PATIENT COMPLAINS OF LIGHTHEADEDNESS AND FEELIGN WEAK. DENIES PAIN. TELEMETRY IN PLACE, NO EVENTS NOTED. DRESSING CHANGED TO PRESSURE INJURY TO BUTTOCK. IV FLUIDS AND PROTONIX GTT RUNNING PER JUN. NO OTHER CONCERNS AT THIS TIME.
[2024-02-24] MEDS ORDERED: QUEtiapine Fumarate 50 MG TAB PO SCH (21:00)
[2024-02-24] MEDS ORDERED: Gabapentin 400 MG Cap PO SCH (21:00)
[2024-02-24 22:02] VITALS: BP 145/91
[2024-02-24 22:10] VITALS: BP 132/90
[2024-02-25] VITALS (11 sets, daily range): BP systolic 108–146; BP diastolic 54–104
[2024-02-25 00:44] LABS: Hematocrit 18.1 % (33.0-51.0); Hemoglobin 6.2 g/dL (11.5-16.0)
--- NOTE | 2024-02-25 02:09 | NUR ---
PT C/O OF CHEST PAIN. EKG DONE WITH NO SIGNIFICANT CHANGES TO LAST. PT REPORTED CHEST PAIN RESOLVED PRIOR TO CALLING HOSPITALIST WITH RESULTS. CALL TO HOSPTIALIST TO ADVISE OF PT COMPLAINTS, S/S, NEW EKG/RESULTS. NO NEW ORDER AT THIS TIME.
[2024-02-25] MEDS ORDERED: NS 500 ML IV SCH ×2 (02:10→11:35)
--- NOTE | 2024-02-25 02:11 | NUR ---
PT HGB CAME BACK 6.2 AT 0035. CALL TO HOSPITALIST TO REPORT. THIS RN ADVISED HOSPITALIST BLOOD CONSENTS NEEDED TO BE SIGNED. HOSPITALIST INSTRUCTED TO TRANSFUSE ONE UNIT OF BLOOD. HE INSTRUCTED TO START TRANSFUSION AND WOULD SIGN CONSENTS WHEN HE HAD TIME. THIS RN ADVISED WOULD NOT START TRANSFUSION UNTIL CONSENTS SIGNED. ALSO NOTIFIED HOSPITALIST THAT THE PATIENT MAY BE TOO CONFUSED TO SIGN CONSENTS. HOSPITALIST WOULD NEED TO CONTACT NEXT OF KIN TO GET CONSENT. THIS RN CONTACTED MARY, SON OF PATIENT. ADVISED PT WOULD NEED A BLOOD TRANSFUSION. INQUIRED IF MARY WOULD BE WILLING TO SPEAK WITH DOCTOR TO GIVE CONSENT FOR TRANSFUSION. MARY STATED HE WOULD SPEAK TO THE DOCTOR AND GIVE CONSENT. PROVIDED NAME AND NUMBER TO HOSPITALIST. SPOKE WITH MARY SWARTZ THEN CAME TO PT ROOM TO FINISH SIGNING THE CONSENTS. HOSPITALIST STATED HE SPOKE WITH MARY SIMMONS ON THE PHONE WAS GIVEN CONSENT. CONSENT SIGNED AND PLACED IN CHART. ADVISED HOSPITALIST THE PATIENT WAS BEEN C/O OF BURNING WITH URINATION AND HAVING URINARY URGENCY. PT IS HAVING VERY LOOSE WATERY STOOL WHEN SHE VOIDS AND UNABLE TO GET A CLEAN CATCH. NEW ORDER TO STRAIGHT CATH PT FOR CLEAN CATCH URINE SAMPLE. ADVISED HOSPITALIST PT IS REFUSING TO FINISH GOLYTELY. NO NEW ORDER, INSTRUCTED TO CONTINUE TO ENCOURAGE PT TO DRINK BOWEL PREP.
[2024-02-25 05:54] LABS: Source, Urine Straight Cath
[2024-02-25 06:05] LABS: Appearance, Urine Hazy (Clear); Bilirubin, Urine Neg (Neg); Blood, Urine 3+ (Neg); Color, Urine Yellow (P-Yellow); Glucose Qualitative, Urine Neg (Neg); Ketones, Urine Neg (Neg); Leukocyte Esterase, Urine 3+ (Neg); Nitrite, Urine Pos (Neg); Protein, Urine 3+ (Neg); Urobilinogen, Urine NORM (Normal)
[2024-02-25 06:15] LABS: Bacteria Many /hpf; Red Blood Cells, Urine 0-2 /hpf (0-2); Squamous Epithelial Cells Few /hpf (Few); White Blood Cells, Urine 50-100 /hpf (0-5)
--- NOTE | 2024-02-25 06:23 | NUR ---
OLD COIN DEALER SUMMARY SEE RN NOT REGARDING BLOOD TRANSFUSION. PT COMPLETED XFER OF ONE UNIT OF BLOOD AND TOLERATED WELL. VITAL SIGNS MONITORED AND STABLE. NO ADVERSE REACTIONS NOTED. LUNGS CLEAR. PT IS HER FOR GI BLEED. PT CLEAR LIQUIDS AND NPO SINCE [address] FOR GI CONSULT WITH DR BELTRAN. PT DRANK LESS THAN HALF OF BOWEL PREP AND HAS REFUSED TO FINISH DESPITE EDUCATION AND MULTIPLE ATTEMPTS TO ENCOURAGE. PT IS HAVE LOOSE WATERY STOOLS THAT ARE DARK/BLACK IN COLOR. EARLY IN SHIFT PT C/O CHEST PAIN (SEE EALIER NOTE); EKG DONE AND HOSPITALIST NOTIFIED. NO NEW ORDER. PT WAS SAYING CHEST PAIN BUT SEEMED TO INDICATE SUPRA PELVIC PAIN. NEW ORDER FOR STRAIGHT CATH AND UA--CULT IF INDICATED. PT STRAIGHT CATH WITH SQL DATABASE ADMINISTRATOR. TOLERATED WELL. SPECIMINE SENT TO LAB AND RETURNED POS FOR UA; WILL NOTIFY DAY SHIFT NURSE.
--- NOTE | 2024-02-25 06:38 | NUR ---
PHONE CALL MADE TO JAKE BELTRAN [facility] SERVICE TO ADVIST PT HAS NOT COMPLETED BOWEL PREP. STOOLS ARE LOOSE/WATERY BUT NOT CLEAR. PT HAS MAINTAINED CLEAR LIQUIDS AND NPO SINCE 399 ( INSTRUCTED BY HOSPITALIST).
[2024-02-25 06:58] LABS: BASOPHILS ABSOLUTE AUTO 0.03 K/mm3 (0.00-0.23); BASOPHILS PERCENT AUTO 1 % (0-2); EOSINOPHILS ABSOLUTE AUTO 0.11 K/mm3 (0.00-0.68); EOSINOPHILS PERCENT AUTO 2 % (0-6); Hematocrit 23.1 % (33.0-51.0); Hemoglobin 7.9 g/dL (11.5-16.0); IMMATURE GRAN ABSOLUTE AUTO 0.06 K/mm3 (0.00-0.10); IMMATURE GRAN PERCENT AUTO 1 % (0-1); LYMPHOCYTES ABSOLUTE AUTO 1.12 K/mm3 (0.84-5.20); LYMPHOCYTES PERCENT AUTO 17 % (21-46); MONOCYTES PERCENT AUTO 11 % (4-13); Mean Corpuscular HGB 31.2 pg (26.0-34.0); Mean Corpuscular HGB Conc 34.2 g/dL (31.5-36.5); Mean Corpuscular Volume 91 fL (80-100); Mean Platelet Volume 10.1 fL (9.1-12.4); NEUTROPHILS ABSOLUTE AUTO 4.46 K/mm3 (1.96-9.15); NEUTROPHILS PERCENT AUTO 69 % (41-73); Platelet Count 188 K/mm3 (150-400); RDW Coefficient Variation 13.2 % (11.7-14.2); RDW Standard Deviation 43.8 fL (35.1-46.3); Red Blood Cell Count 2.53 M/mm3 (3.80-5.20); White Blood Cell Count 6.48 K/mm3 (4.00-11.30)
--- NOTE | 2024-02-25 07:23 | NUR ---
PHONE CALL FROM DR BELTRAN APROX 0700 ADVISED PT NOT ABLE TO CONTINUE BOWEL PREP. STOOLS ARE LIQUID BUT DARK/BLACK IN COLOR. NEW ORDER FOR ENEMA. DR HOGUE TO GIVE PT ENEMA AND HE WOULD TAKE HER LAST FOR PROCEDURE. DR BELTRAN ALSO STATED HE WOULD TO EGD AND COLONOSCOPY.
[2024-02-25 07:33] LABS: Albumin, Blood 2.6 g/dL (3.4-5.0); Bilirubin, Total 0.4 mg/dL (0.1-1.0); Bun/Creatinine Ratio 34.5 (12.0-20.0); Calcium, Blood 8.4 mg/dL (8.5-10.1); Creatinine, Blood 0.78 mg/dL (0.40-1.00); Globulin, Blood 2.5 g/dL (2.2-4.0); Total Protein, Blood 5.1 g/dL (6.4-8.2)
[2024-02-25] MEDS ORDERED: Sod Phosphate/Sod Biphosphate 132 ML BTL PR ONE (09:00)
[2024-02-25] MEDS ORDERED: propofoL 40 ML IV ONE (11:31)
--- NOTE | 2024-02-25 12:12 | NUR ---
02/25/24 1212 Abbey Lozano WITH [facility] OWENS; SEE ANESTHESIA RECORDS.
[2024-02-25] MEDS ORDERED: CefTRIAXone Sodium 1,000 MG in NS 100 ML IV SCH (14:00)
--- NOTE | 2024-02-25 18:18 | NUR ---
SHIFT SUMMARY PATIENT A/OX3 THIS SHIFT, IMPUSLIVE D/T URINARY URGENCY HAS ATTEMPTED TO GET TO THE SIDE OF THE BED INDEPENDENTLY THROUGHOUT THE SHIFT. PATIENT CONINUES WITH ANXIETY AND CONFUSION, BUT CONSOLABLE AND EASY TO REORIENT. URINE CULTURE PENDING AND IV ANTIBIOTICS INFUSED PER MAR. PATIENT COMPLAINING OF SUPRAPUBIC PAIN AND DYSURIA. ALSO HVING URINARY FREQUENCY AND INCONTIENCE, ATTENDS IN PLACE. CONONOSCOPY AND ENDOSCOPY PERFORMED THIS AFTERNOON, PER RN REPORT GASTRITIS WAS ONLY SIGNIFICANT FINDING. REGULAR DIET ORDERED, PATIENT TOLERATING WELL. CONTINUOUS PROTONIX GTT INFUSING PER MAR. TELEMETRY IN PLACE, NO EVENTS NOTED. SON AND DAUGHTER IN LAW, MARY AND KRISTEN, UPDATED ON PATIEN STATUS AND MULTIPLE FAMILY MEMBERS CAME TO VISIT PATIENT THROUGHOUT THE SHIFT. SINCE SCOPE PROCEDURE, PATIENT ONYL ITH 1 SMALL BLACK WATERY BOWEL MOVEMENT. NO OTHER CONCERNS AT THIS TIME.
[2024-02-25] MEDS ORDERED: Lactobacil 2-S.Thermo-Bifido 1 1 Cap PO SCH (21:00)
[2024-02-26 06:36] VITALS: BP 117/70
[2024-02-26 07:34] LABS: Hematocrit 20.5 % (33.0-51.0); Hemoglobin 7.2 g/dL (11.5-16.0); Mean Corpuscular HGB 32.1 pg (26.0-34.0); Mean Corpuscular HGB Conc 35.1 g/dL (31.5-36.5); Mean Corpuscular Volume 92 fL (80-100); Mean Platelet Volume 10.1 fL (9.1-12.4); Platelet Count 155 K/mm3 (150-400); RDW Coefficient Variation 13.8 % (11.7-14.2); RDW Standard Deviation 46.3 fL (35.1-46.3); Red Blood Cell Count 2.24 M/mm3 (3.80-5.20); White Blood Cell Count 6.37 K/mm3 (4.00-11.30)
[2024-02-26 07:54] LABS: Albumin, Blood 2.6 g/dL (3.4-5.0); Bilirubin, Total 0.4 mg/dL (0.1-1.0); Bun/Creatinine Ratio 24.5 (12.0-20.0); Calcium, Blood 8.8 mg/dL (8.5-10.1); Creatinine, Blood 0.9 mg/dL (0.40-1.00); Globulin, Blood 2.6 g/dL (2.2-4.0); Potassium, Blood 3.6 mmol/L (3.5-5.5); Total Protein, Blood 5.2 g/dL (6.4-8.2)
[2024-02-26 08:26] VITALS: BP 138/78
--- NOTE | 2024-02-26 09:00 | NUR ---
pt laying in bed a/ox2-3, makes illogical statement, may be hallucinating at times, thought there was a man in the [place] shooting, but easily redirectable pleasant and cooperative with care, follows commands well, denies pain at this time, lungs are clear, dim in bases, resp even and unlabored, no cough noted, hrr, tele in place running sr with bbb, +1 edema noted to b/l le, ppp+1, cap refill <3 sec, vs stable, afebrile, piv to l wrist, site is clear and patent, infusing protonix gtt, btx4, abd flat soft nontender, voids via bsc, skin has a sore inside the buttcheeks, dressing placed, she is a one person assist with a walker, ryder, call light in reach.
[2024-02-26] MEDS ORDERED: Empagliflozin 10 MG TAB PO SCH (13:00)
[2024-02-26 14:19] VITALS: BP 114/71
[2024-02-26 15:50] VITALS: BP 128/98
--- NOTE | 2024-02-26 18:14 | NUR ---
pt had a bedbath today, visitors in to see her, gets up to bsc to void, no acute changes this shift, call light in reach.
[2024-02-26 20:41] VITALS: BP 138/78
[2024-02-27 04:31] VITALS: BP 138/79
[2024-02-27 05:27] LABS: BASOPHILS ABSOLUTE AUTO 0.02 K/mm3 (0.00-0.23); BASOPHILS PERCENT AUTO 0 % (0-2); EOSINOPHILS ABSOLUTE AUTO 0.09 K/mm3 (0.00-0.68); EOSINOPHILS PERCENT AUTO 2 % (0-6); Hematocrit 19.2 % (33.0-51.0); Hemoglobin 6.5 g/dL (11.5-16.0); IMMATURE GRAN ABSOLUTE AUTO 0.05 K/mm3 (0.00-0.10); IMMATURE GRAN PERCENT AUTO 1 % (0-1); LYMPHOCYTES PERCENT AUTO 18 % (21-46); MONOCYTES ABSOLUTE AUTO 0.57 K/mm3 (0.16-1.47); MONOCYTES PERCENT AUTO 10 % (4-13); Mean Corpuscular HGB 31.7 pg (26.0-34.0); Mean Corpuscular HGB Conc 33.9 g/dL (31.5-36.5); Mean Corpuscular Volume 94 fL (80-100); Mean Platelet Volume 10.8 fL (9.1-12.4); NEUTROPHILS ABSOLUTE AUTO 3.87 K/mm3 (1.96-9.15); NEUTROPHILS PERCENT AUTO 69 % (41-73); Platelet Count 161 K/mm3 (150-400); RDW Coefficient Variation 13.5 % (11.7-14.2); RDW Standard Deviation 45.3 fL (35.1-46.3); Red Blood Cell Count 2.05 M/mm3 (3.80-5.20)
[2024-02-27 05:56] LABS: Bun/Creatinine Ratio 19.1 (12.0-20.0); Calcium, Blood 8.4 mg/dL (8.5-10.1); Creatinine, Blood 0.89 mg/dL (0.40-1.00); Potassium, Blood 3.5 mmol/L (3.5-5.5)
--- NOTE | 2024-02-27 06:41 | NUR ---
RESIDENTIAL MANAGER SUMMARY PT A/OX3. ATYPICAL MENTATION. PT CAN FOLLOW DIRECTIONS. PT FORGETFUL. INTERMITTANT EPISODES OF HALLUCINATIONS AND PHOBIAS. PT IS ABLE TO MAKE NEEDS KNOWN WITH PROMPTING. COMPLETE BEDBATH GIVEN. PT HAS STAGE TWO HEALLING PRESSURE WOUND TO COCCYX. AREA CLEANSED AND MEPILEX APPLIED. PT HAVING IMPROVED URINARY CONTINENCE. PT HGB 6.5; CALL TO HOSPITALIST. NEW ORDER FOR 1 UNTIT OF PRBC. TRANSFUSION. WILL ADVISE DAY NURSE AND WCTM.
[2024-02-27 07:42] VITALS: BP 148/77
[2024-02-27 09:04] VITALS: BP 153/81
[2024-02-27 10:06] VITALS: BP 122/73
--- NOTE | 2024-02-27 14:09 | NUR ---
Spiritual Care Visit. Pt. is sitting up and eating lunch when she welcomed my visit. Pt. is pleasant but displays some measure of anxiety and defensiveness when this control panel operator crude unit enquires about her recent short discharge home. Listen with interest and empathy. Pt. verbalized that she was not experiencing and pain. This control panel operator crude unit sought to make sure the Pt. felt cared for and heard. Pt. dose generally display some minor confusion, but verbalized gratitude for the spiritual care visit.
[2024-02-27 15:59] VITALS: BP 118/71
--- NOTE | 2024-02-27 19:05 | NUR ---
RECEIVED REPORT FROM ECHO FLORES. ECHO PETERSON TO ASSUME CARE AT [address] [facility].
[2024-02-27 19:15] LABS: Hematocrit 24.4 % (33.0-51.0); Hemoglobin 8.5 g/dL (11.5-16.0)
[2024-02-27 19:22] VITALS: BP 147/77
--- NOTE | 2024-02-27 19:38 | NUR ---
report received verified. very sweet and pleasnt pt who has moments of delusional thoughts and paranoia. pt so far has been very cooperative with me and has requested me to be by her side because of the noises she hears outside her room, i enc pt to ignor those sounds because they were from people in the [place] and didnt concern her. pt was relieved and was able to ignor sounds for 30 min or so before returning to paranoid thoughts. pt was then enc to sit in a chair for a few hours which seemed to distract pt and put her in better mood. will cont to monitor, pt enc to use call light
--- NOTE | 2024-02-27 20:15 | NUR ---
REPORT GIVEN TO ECHO PETERSON.
[2024-02-28 04:45] VITALS: BP 147/81
[2024-02-28 05:14] LABS: BASOPHILS ABSOLUTE AUTO 0.03 K/mm3 (0.00-0.23); BASOPHILS PERCENT AUTO 1 % (0-2); EOSINOPHILS ABSOLUTE AUTO 0.09 K/mm3 (0.00-0.68); EOSINOPHILS PERCENT AUTO 2 % (0-6); Hematocrit 24.2 % (33.0-51.0); Hemoglobin 8.2 g/dL (11.5-16.0); IMMATURE GRAN ABSOLUTE AUTO 0.08 K/mm3 (0.00-0.10); IMMATURE GRAN PERCENT AUTO 1 % (0-1); LYMPHOCYTES ABSOLUTE AUTO 1.18 K/mm3 (0.84-5.20); LYMPHOCYTES PERCENT AUTO 21 % (21-46); MONOCYTES PERCENT AUTO 13 % (4-13); Mean Corpuscular HGB 31.3 pg (26.0-34.0); Mean Corpuscular HGB Conc 33.9 g/dL (31.5-36.5); Mean Corpuscular Volume 92 fL (80-100); Mean Platelet Volume 10.8 fL (9.1-12.4); NEUTROPHILS ABSOLUTE AUTO 3.47 K/mm3 (1.96-9.15); NEUTROPHILS PERCENT AUTO 63 % (41-73); Platelet Count 184 K/mm3 (150-400); RDW Coefficient Variation 14.1 % (11.7-14.2); RDW Standard Deviation 45.5 fL (35.1-46.3); Red Blood Cell Count 2.62 M/mm3 (3.80-5.20); White Blood Cell Count 5.55 K/mm3 (4.00-11.30)
--- NOTE | 2024-02-28 05:31 | NUR ---
SHIFT SUMMARY - NO ACUTE CHANGES THROUGHOUT THIS SHIFT. CALL LIGHT WITHIN REACH. BED IN LOW POSITION. FLUIDS AT BEDSIDE. WILL CONTINUE TO MONITOR UNTIL AM SHIFT CHANGE.
[2024-02-28 05:40] LABS: Bun/Creatinine Ratio 15.7 (12.0-20.0); Calcium, Blood 8.7 mg/dL (8.5-10.1); Creatinine, Blood 0.96 mg/dL (0.40-1.00); Potassium, Blood 3.6 mmol/L (3.5-5.5)
[2024-02-28 07:54] VITALS: BP 139/76
[2024-02-28] MEDS ORDERED: Piperacillin/Tazobactam Sod 3.375 GM in NS 100 ML IV SCH (09:00)
[2024-02-28 15:07] VITALS: BP 137/72
[2024-02-28] MEDS ORDERED: LORA.5 PO (16:03)
--- NOTE | 2024-02-28 17:27 | NUR ---
Spiritual Care Visit. Pt. is sitting up in a chair when she welcomes my visit. Pt. is unsettled because she is watching from her chair another Pt. room where Pt. care is taking place. Pt. verbalizes that it makes her anxious. Seek to normalize the Pt. experience and encourage the Pt. not to focus on what is happening in aother room. Pt. does display some confusion as she responds to this chaplains life review questions. Pt. displays evidence of wanting to avoid matters of krista and adventist. Prayed with Pt. Pt. verbalized that she wanted her nurse Doc. The podopediatrician communicated the Pts. request to nurse Doc who responded and came to the Pts. room.
[2024-02-28 19:36] VITALS: BP 137/70
--- NOTE | 2024-02-28 19:36 | NUR ---
PT DID VERY WELL TODAY AND IS STILL VERY SUSPIOUS QUESTIONING EVERY ACTION AND IS VERY PARANOID BUT IS STILL PLEASENT AND COOPERATIVE. PT WAS ENC TO GET UP WITH EVERY MEAL AND AGREED. TRANSFERS WELL AND FEEDS SELF. CHECKED IN WITH PT EVERY HOUR TO ASSESS NEEDS SINCE PT HAS PROBLEMS COMMUNICATING HER NEEDS. CALL LIGHT WITHIN REACH
[2024-02-29 04:36] VITALS: BP 129/64
--- NOTE | 2024-02-29 05:24 | NUR ---
SHIFT SUMMARY NOC PT A/O X 3-4. PLEASANTLY CONFUSED AT TIMES, BUT COOPERATIVE. VSS. NO ACUTE CHANGES TO REPORT. HS CBG 147 NO COVERAGE ORDERED. ON TELE SINUS RHYTHM/BBB IN 60'S. HGB 8.2 YESTERDAY. PT CURRENTLY RESTING WITH BED IN LOWEST POSITION, AND CALL LIGHT WITHIN REACH.
[2024-02-29 07:16] LABS: BASOPHILS ABSOLUTE AUTO 0.04 K/mm3 (0.00-0.23); BASOPHILS PERCENT AUTO 1 % (0-2); EOSINOPHILS ABSOLUTE AUTO 0.13 K/mm3 (0.00-0.68); EOSINOPHILS PERCENT AUTO 2 % (0-6); Hematocrit 25.9 % (33.0-51.0); IMMATURE GRAN ABSOLUTE AUTO 0.09 K/mm3 (0.00-0.10); IMMATURE GRAN PERCENT AUTO 2 % (0-1); LYMPHOCYTES ABSOLUTE AUTO 0.91 K/mm3 (0.84-5.20); LYMPHOCYTES PERCENT AUTO 15 % (21-46); MONOCYTES ABSOLUTE AUTO 0.71 K/mm3 (0.16-1.47); MONOCYTES PERCENT AUTO 12 % (4-13); Mean Corpuscular HGB 32.4 pg (26.0-34.0); Mean Corpuscular HGB Conc 34.7 g/dL (31.5-36.5); Mean Corpuscular Volume 93 fL (80-100); Mean Platelet Volume 10.1 fL (9.1-12.4); NEUTROPHILS ABSOLUTE AUTO 4.14 K/mm3 (1.96-9.15); NEUTROPHILS PERCENT AUTO 69 % (41-73); Platelet Count 209 K/mm3 (150-400); RDW Standard Deviation 45.3 fL (35.1-46.3); Red Blood Cell Count 2.78 M/mm3 (3.80-5.20); White Blood Cell Count 6.02 K/mm3 (4.00-11.30)
[2024-02-29 07:34] LABS: Bun/Creatinine Ratio 15.6 (12.0-20.0); Calcium, Blood 9.2 mg/dL (8.5-10.1); Creatinine, Blood 1.09 mg/dL (0.40-1.00); Potassium, Blood 3.4 mmol/L (3.5-5.5)
[2024-02-29 08:08] VITALS: BP 138/97
[2024-02-29 11:57] VITALS: BP 108/68
[2024-02-29] MEDS ORDERED: LORazepam 1 MG Tab PO ONE (12:05)
[2024-02-29 15:07] VITALS: BP 118/69
[2024-02-29] MEDS ORDERED: LORazepam 0.5 MG Tab PO SCH (17:00)
--- NOTE | 2024-02-29 19:45 | NUR ---
report received verified, pt went into rapid a fib this morning after getting into chair , pt did not c/o any chest pain or distress but environmental monitoring technician called about heart rate in the 140s, after breakfast pt was enc to get into bed Dr Vines was notified and since pt had received meds this morning no new orders were given. heart rate cont 120 to 140 through the morning bp was low no anti arrythmics werent used, pt had no complaints. so was noitified and is now at bedside, i spoke with son about discharge tomorrow is heart rate was under control and he was agreeable to that. it was noted that pt wasnt getting their normal scheduled ativan so a dose was givenaround 1230. shortly after around 1330 to converted back to SR. notified, pt assisted to chair and is now feeding self, call light within reach. pt more cooperative with care since resuming her medication.
[2024-02-29 20:57] VITALS: BP 137/71
[2024-02-29] MEDS ORDERED: LORazepam 1 MG Tab PO SCH (21:00)
[2024-02-29] MEDS ORDERED: Pantoprazole Sodium 40 MG Injection IV SCH (21:00)
[2024-02-29 21:16] VITALS: BP 151/92
--- NOTE | 2024-03-01 05:22 | NUR ---
SHIFT SUMMARY NOC PT A/O X 2-3. AT NIGHT NOTABLY MORE CONFUSED AND FORGETFUL WITH DELUSIONS AND PARANOIA ABOUT STAFF WANTING TO HARM THEM. PT WOULD NOT LET THIS RN GIVE THEM THEIR BEDTIME MEDICATIONS BECAUSE THEY THOUGHT THAT THEY WERE POISON, BREAK RN WHO HAD PT FOR MULTIPLE DAYS PRIOR WAS ABLE TO GET PT TO TAKE MEDICATIONS. PT PARANOIA WAS MUCH GREATER THAN PREVIOUS NIGHT. PT EVENTUALLY CALMED DOWN AND RESTED ABOUT AN HOUR AFTER RECEIVING BEDTIME SEROQUEL AND ATIVAN. PT ON TELE SR/PAC'S IN 70'S. WHEN LUCID PT REPORTS EAGERNESS FOR SON TO PICK THEM UP FOR DISCHARGE TODAY. PT IS CURRENTLY RESTING WITH BED ALARM ON, BED IN LOWEST POSITION, AND CALL LIGHT WITHIN REACH.
[2024-03-01] MEDS ORDERED: Levothyroxine Sodium 0.1 MG Tab PO SCH (06:00)
[2024-03-01 06:05] VITALS: BP 176/105
[2024-03-01 07:34] VITALS: BP 146/86
[2024-03-01 09:21] LABS: BASOPHILS ABSOLUTE AUTO 0.04 K/mm3 (0.00-0.23); BASOPHILS PERCENT AUTO 1 % (0-2); EOSINOPHILS ABSOLUTE AUTO 0.12 K/mm3 (0.00-0.68); EOSINOPHILS PERCENT AUTO 2 % (0-6); Hematocrit 27.6 % (33.0-51.0); Hemoglobin 9.3 g/dL (11.5-16.0); IMMATURE GRAN ABSOLUTE AUTO 0.12 K/mm3 (0.00-0.10); IMMATURE GRAN PERCENT AUTO 2 % (0-1); LYMPHOCYTES ABSOLUTE AUTO 1.01 K/mm3 (0.84-5.20); LYMPHOCYTES PERCENT AUTO 15 % (21-46); MONOCYTES ABSOLUTE AUTO 0.77 K/mm3 (0.16-1.47); MONOCYTES PERCENT AUTO 12 % (4-13); Mean Corpuscular HGB 31.7 pg (26.0-34.0); Mean Corpuscular HGB Conc 33.7 g/dL (31.5-36.5); Mean Corpuscular Volume 94 fL (80-100); Mean Platelet Volume 10.6 fL (9.1-12.4); NEUTROPHILS ABSOLUTE AUTO 4.48 K/mm3 (1.96-9.15); NEUTROPHILS PERCENT AUTO 69 % (41-73); Platelet Count 233 K/mm3 (150-400); RDW Coefficient Variation 14.3 % (11.7-14.2); RDW Standard Deviation 46.1 fL (35.1-46.3); Red Blood Cell Count 2.93 M/mm3 (3.80-5.20); White Blood Cell Count 6.54 K/mm3 (4.00-11.30)
[2024-03-01 09:37] LABS: Anion Gap 12 mmol/L (3-11); Blood Urea Nitrogen 18 mg/dL (8-24); Bun/Creatinine Ratio 16.5 (12.0-20.0); CO2, Blood 26 mmol/L (21-32); Calcium, Blood 8.8 mg/dL (8.5-10.1); Chloride, Blood 103 mmol/L (98-108); Creatinine, Blood 1.09 mg/dL (0.40-1.00); Glomerular Filtration Rate 53 (60-); Glucose, Blood 140 mg/dL (70-99); Phosphorus, Blood 3.5 mg/dL (2.5-4.9); Potassium, Blood 3.2 mmol/L (3.5-5.5); Sodium, Blood 138 mmol/L (136-145)
[2024-03-01 10:05] VITALS: BP 135/69
[2024-03-01] MEDS ORDERED: JARDIANCE10 MG PO (13:15)
[2024-03-01] MEDS ORDERED: NITR100CA PO (13:16)
[2024-03-01] MEDS ORDERED: LACT PO (13:16)
--- NOTE | 2024-03-01 13:43 | NUR ---
DISCHARGE NOTE: PT D/C AT APPROX 1340. PIV REMOVED WITH NO SWELLING, REDNESS, OR TENDERNESS. SON AND DIL'S QUESTIONS ANSWERED. DISCHARGED MEDICATIONS REVIEWED AND FAXED TO [facility]. PT ESCORTED OUT VIA WHEELCHAIR BY MARIALUISA. NO CONCERNS AT TIME OF DISCHARGE.
== END 2024-03-01 14:33 | disposition home health service (06) | DRG 378 ==
LOC: ER 02:07 → MEDS 02:08 → ENPENDDIS 03-01 13:29 → MEDS 03-01 14:33
PROVIDERS: Family Medicine; Student in an Organized Health Care Education/Training Program; Surgery; ADMIT Internal Medicine
PROC: 0DJD8ZZ Inspection of Lower Intestinal Tract, Via Natural or Artificial Opening Endoscopic (ICD-10-PCS; 2024-02-25)
PROC: 0DJ08ZZ Inspection of Upper Intestinal Tract, Via Natural or Artificial Opening Endoscopic (ICD-10-PCS; 2024-02-25 11:00)
PROC: 30233N1 Transfusion of Nonautologous Red Blood Cells into Peripheral Vein, Percutaneous Approach (ICD-10-PCS; principal; 2024-02-27)
DX: K29.71 Gastritis, unspecified, with bleeding (principal); D62 Acute posthemorrhagic anemia; I16.1 Hypertensive emergency; I50.32 Chronic diastolic (congestive) heart failure; N39.0 Urinary tract infection, site not specified; Z68.41 Body mass index [BMI] 40.0-44.9, adult; F41.9 Anxiety disorder, unspecified; M54.50 Low back pain, unspecified; G89.29 Other chronic pain; E11.42 Type 2 diabetes mellitus with diabetic polyneuropathy; E03.9 Hypothyroidism, unspecified; E78.5 Hyperlipidemia, unspecified; I11.0 Hypertensive heart disease with heart failure; K21.9 Gastro-esophageal reflux disease without esophagitis; J45.909 Unspecified asthma, uncomplicated; I35.0 Nonrheumatic aortic (valve) stenosis; I48.0 Paroxysmal atrial fibrillation; F10.10 Alcohol abuse, uncomplicated; I25.10 Atherosclerotic heart disease of native coronary artery without angina pectoris; K29.70 Gastritis, unspecified, without bleeding; R07.89 Other chest pain; B96.1 Klebsiella pneumoniae [K. pneumoniae] as the cause of diseases classified elsewhere; B96.89 Other specified bacterial agents as the cause of diseases classified elsewhere; E66.9 Obesity, unspecified; Z79.01 Long term (current) use of anticoagulants; Q23.81 Bicuspid aortic valve; Z95.2 Presence of prosthetic heart valve; Z88.2 Allergy status to sulfonamides; Z88.8 Allergy status to other drugs, medicaments and biological substances; Z91.040 Latex allergy status; Z88.1 Allergy status to other antibiotic agents; Z79.899 Other long term (current) drug therapy; Z79.82 Long term (current) use of aspirin; Z79.890 Hormone replacement therapy; Z79.84 Long term (current) use of oral hypoglycemic drugs; Z87.19 Personal history of other diseases of the digestive system; I25.2 Old myocardial infarction; Z86.79 Personal history of other diseases of the circulatory system; Z90.710 Acquired absence of both cervix and uterus; Z90.49 Acquired absence of other specified parts of digestive tract; Z87.891 Personal history of nicotine dependence; Z98.890 Other specified postprocedural states
CPT/HCPCS: 36415; 36416; 36430; 80048; 80053; 80069; 81001; 82947; 83880; 85014; 85018; 85025; 85027; 85610; 85730; 86850; 86900; 86901; 86923; 87077; 87086; 87186; 93005; 93010; 96365; 96375; 96376; 99285-25; A9270; G0378; J0696; J2405; J2470; J2543; J2704; J7030; J7040; P9016

== ENCOUNTER → 2024-03-14 | Outpatient (CLI) | payer MEDICARE, OTHER ==
[~2024-03-14] MED LIST changes: +JARDIANCE10 MG PO; +LACT PO; +LORA.5 PO; +NITR100CA PO
== END ==
LOC: LAB 11:04 → LAB SHORT 11:04
DX: N39.0 Urinary tract infection, site not specified (principal)
CPT/HCPCS: 87086

== ENCOUNTER 2024-04-18 10:01 | Emergency (ER) | payer MEDICARE, OTHER ==
[~2024-04-18] VITALS: Ht 165.1 cm; Wt 107.0 kg
[2024-04-18 10:57] LABS: Albumin, Blood 3.1 g/dL (3.4-5.0); Albumin/Globulin Ratio 0.8 (0.8-1.8); BASOPHILS ABSOLUTE AUTO 0.05 K/mm3 (0.00-0.23); BASOPHILS PERCENT AUTO 1 % (0-2); Bilirubin, Total 0.4 mg/dL (0.1-1.0); Bun/Creatinine Ratio 9.4 (12.0-20.0); Calcium, Blood 9.5 mg/dL (8.5-10.1); Creatinine, Blood 0.86 mg/dL (0.40-1.00); EOSINOPHILS ABSOLUTE AUTO 0.19 K/mm3 (0.00-0.68); EOSINOPHILS PERCENT AUTO 3 % (0-6); Globulin, Blood 3.9 g/dL (2.2-4.0); Hematocrit 37.2 % (33.0-51.0); Hemoglobin 12.2 g/dL (11.5-16.0); IMMATURE GRAN ABSOLUTE AUTO 0.03 K/mm3 (0.00-0.10); IMMATURE GRAN PERCENT AUTO 1 % (0-1); LYMPHOCYTES ABSOLUTE AUTO 0.97 K/mm3 (0.84-5.20); LYMPHOCYTES PERCENT AUTO 16 % (21-46); MONOCYTES ABSOLUTE AUTO 0.57 K/mm3 (0.16-1.47); MONOCYTES PERCENT AUTO 9 % (4-13); Mean Corpuscular HGB 29.3 pg (26.0-34.0); Mean Corpuscular HGB Conc 32.8 g/dL (31.5-36.5); Mean Corpuscular Volume 89 fL (80-100); Mean Platelet Volume 10.7 fL (9.1-12.4); NEUTROPHILS PERCENT AUTO 70 % (41-73); Platelet Count 259 K/mm3 (150-400); Potassium, Blood 3.9 mmol/L (3.5-5.5); RDW Coefficient Variation 13.9 % (11.7-14.2); RDW Standard Deviation 44.8 fL (35.1-46.3); Red Blood Cell Count 4.17 M/mm3 (3.80-5.20); White Blood Cell Count 6.11 K/mm3 (4.00-11.30)
[2024-04-18 15:13] LABS: Source, Urine Clean Catch
[2024-04-18 15:15] LABS: Appearance, Urine Hazy (Clear); Bilirubin, Urine Neg (Neg); Blood, Urine Neg (Neg); Color, Urine Yellow (P-Yellow); Glucose Qualitative, Urine 4+ (Neg); Ketones, Urine Neg (Neg); Leukocyte Esterase, Urine 1+ (Neg); Nitrite, Urine Neg (Neg); Protein, Urine Neg (Neg); Urobilinogen, Urine NORM (Normal)
[2024-04-18 15:26] LABS: Bacteria Few /hpf; Red Blood Cells, Urine Not Seen /hpf (0-2); Squamous Epithelial Cells Rare /hpf (Few); White Blood Cells, Urine 0-2 /hpf (0-5); Yeast/Fungi Urine Mod /hpf
[2024-04-18] MEDS ORDERED: HYDROcodone 5-APAP 325 TAB PO ONE (16:00)
[2024-04-18] MEDS ORDERED: HYDR1TAB94 PO (16:02)
[2024-04-18 16:15] VITALS: BP 163/96
== END 2024-04-18 16:27 | disposition home or self-care (01) ==
LOC: ER 10:01
PROVIDERS: Emergency Medicine; Physician Assistant
DX: S33.8XXA Sprain of other parts of lumbar spine and pelvis, initial encounter (principal); R07.89 Other chest pain; I11.0 Hypertensive heart disease with heart failure; I50.9 Heart failure, unspecified; E11.42 Type 2 diabetes mellitus with diabetic polyneuropathy; K21.9 Gastro-esophageal reflux disease without esophagitis; J45.909 Unspecified asthma, uncomplicated; I48.91 Unspecified atrial fibrillation; I10 Essential (primary) hypertension; Z79.82 Long term (current) use of aspirin; Z79.899 Other long term (current) drug therapy; Z88.2 Allergy status to sulfonamides; Z88.1 Allergy status to other antibiotic agents; Z88.5 Allergy status to narcotic agent; Z91.040 Latex allergy status; W18.30XA Fall on same level, unspecified, initial encounter
CPT/HCPCS: 71046; 80053; 81001; 84484; 85025; 87086; 93005; 93010; 99284-25; A9270

== ENCOUNTER 2024-05-18 11:35 | Emergency (ER) | payer MEDICARE, OTHER ==
[~2024-05-18] VITALS: Ht 165.1 cm; Wt 104.3 kg
[2024-05-18] MEDS ORDERED: Acetaminophen 500 MG Tab PO ONE (11:55)
[2024-05-18] MEDS ORDERED: Prochlorperazine Edisylate 10 mg Vial IV ONE (11:55)
[2024-05-18] MEDS ORDERED: DiphenhydrAMINE HCl 50 MG/ML 1ML Vial IV ONE (11:55)
[2024-05-18 13:07] LABS: BASOPHILS ABSOLUTE AUTO 0.05 K/mm3 (0.00-0.23); BASOPHILS PERCENT AUTO 1 % (0-2); EOSINOPHILS ABSOLUTE AUTO 0.15 K/mm3 (0.00-0.68); EOSINOPHILS PERCENT AUTO 2 % (0-6); Hematocrit 39.8 % (33.0-51.0); Hemoglobin 13.1 g/dL (11.5-16.0); IMMATURE GRAN ABSOLUTE AUTO 0.06 K/mm3 (0.00-0.10); IMMATURE GRAN PERCENT AUTO 1 % (0-1); LYMPHOCYTES ABSOLUTE AUTO 1.18 K/mm3 (0.84-5.20); LYMPHOCYTES PERCENT AUTO 16 % (21-46); MONOCYTES ABSOLUTE AUTO 0.61 K/mm3 (0.16-1.47); MONOCYTES PERCENT AUTO 8 % (4-13); Mean Corpuscular HGB 28.6 pg (26.0-34.0); Mean Corpuscular HGB Conc 32.9 g/dL (31.5-36.5); Mean Corpuscular Volume 87 fL (80-100); Mean Platelet Volume 10.4 fL (9.1-12.4); NEUTROPHILS ABSOLUTE AUTO 5.47 K/mm3 (1.96-9.15); NEUTROPHILS PERCENT AUTO 73 % (41-73); Platelet Count 239 K/mm3 (150-400); RDW Coefficient Variation 13.7 % (11.7-14.2); RDW Standard Deviation 43.8 fL (35.1-46.3); Red Blood Cell Count 4.58 M/mm3 (3.80-5.20); White Blood Cell Count 7.52 K/mm3 (4.00-11.30)
[2024-05-18 13:20] LABS: Bun/Creatinine Ratio 19.3 (12.0-20.0); Calcium, Blood 9.6 mg/dL (8.5-10.1); Creatinine, Blood 0.83 mg/dL (0.40-1.00); Magnesium, Blood 2.4 mg/dL (1.6-2.4); Potassium, Blood 3.8 mmol/L (3.5-5.5)
[2024-05-18 13:32] LABS: Source, Urine Clean Catch
[2024-05-18 13:42] LABS: Appearance, Urine Clear (Clear); Bilirubin, Urine Neg (Neg); Blood, Urine Neg (Neg); Glucose Qualitative, Urine 4+ (Neg); Ketones, Urine Neg (Neg); Leukocyte Esterase, Urine Neg (Neg); Nitrite, Urine Neg (Neg); Protein, Urine Neg (Neg); Specific Gravity, Urine 1.005 (1.003-1.022); Urobilinogen, Urine NORM (Normal)
[2024-05-18 13:43] LABS: Color, Urine Pale Yellow (P-Yellow)
[2024-05-18 14:12] LABS: Free Thyroxine 1.29 ng/dL (0.70-1.60)
[2024-05-18 14:14] LABS: Thyroid Stimulating Hormone 0.748 uIU/mL (0.360-4.800)
[2024-05-18 14:39] LABS: Influenza A, PCR NEGATIVE (NEGATIVE); Influenza B, PCR NEGATIVE (NEGATIVE); Resp Syncytial Virus, PCR NEGATIVE (NEGATIVE); SARS-Cov-2 (COVID-19) PCR, MMC NEGATIVE (NEGATIVE)
[2024-05-18] MEDS ORDERED: ONDA4ODT MM (16:56)
[2024-05-18 17:00] VITALS: BP 153/97
== END 2024-05-18 17:25 | disposition home or self-care (01) ==
LOC: ER 11:35
PROVIDERS: Emergency Medicine
DX: R51.9 Headache, unspecified (principal); R53.1 Weakness; E11.42 Type 2 diabetes mellitus with diabetic polyneuropathy; I10 Essential (primary) hypertension; E78.5 Hyperlipidemia, unspecified; K21.9 Gastro-esophageal reflux disease without esophagitis; I48.91 Unspecified atrial fibrillation; I25.2 Old myocardial infarction; J45.909 Unspecified asthma, uncomplicated; Z79.02 Long term (current) use of antithrombotics/antiplatelets; Z79.899 Other long term (current) drug therapy; Z79.82 Long term (current) use of aspirin; Z79.2 Long term (current) use of antibiotics; Z79.84 Long term (current) use of oral hypoglycemic drugs; Z88.2 Allergy status to sulfonamides; Z88.1 Allergy status to other antibiotic agents; Z91.040 Latex allergy status; Z88.8 Allergy status to other drugs, medicaments and biological substances
CPT/HCPCS: 0241U; 36415; 70450; 71045; 80048; 81003; 83735; 83880; 84439; 84443; 84484; 85025; 93005; 93010; 96374; 96375; 99285-25; A9270; J0780; J1200

== ENCOUNTER 2024-08-08 11:45 | Emergency (ER) | payer MEDICARE, OTHER ==
[~2024-08-08] VITALS: Ht 165.1 cm; Wt 105.2 kg
[2024-08-08] MEDS ORDERED: Lidocaine 2% Viscous Soln 15 ML UDC PO ONE (12:20)
[2024-08-08] MEDS ORDERED: Mag Hydrox/AL Hydrox/Simeth 30 ML UDC PO ONE (12:20)
[2024-08-08 12:45] LABS: BASOPHILS ABSOLUTE AUTO 0.06 K/mm3 (0.00-0.23); BASOPHILS PERCENT AUTO 1 % (0-2); EOSINOPHILS ABSOLUTE AUTO 0.13 K/mm3 (0.00-0.68); EOSINOPHILS PERCENT AUTO 2 % (0-6); Hematocrit 41.1 % (33.0-51.0); Hemoglobin 13.7 g/dL (11.5-16.0); IMMATURE GRAN ABSOLUTE AUTO 0.06 K/mm3 (0.00-0.10); IMMATURE GRAN PERCENT AUTO 1 % (0-1); LYMPHOCYTES ABSOLUTE AUTO 1.24 K/mm3 (0.84-5.20); LYMPHOCYTES PERCENT AUTO 14 % (21-46); MONOCYTES ABSOLUTE AUTO 0.62 K/mm3 (0.16-1.47); MONOCYTES PERCENT AUTO 7 % (4-13); Mean Corpuscular HGB 29.2 pg (26.0-34.0); Mean Corpuscular HGB Conc 33.3 g/dL (31.5-36.5); Mean Corpuscular Volume 88 fL (80-100); NEUTROPHILS ABSOLUTE AUTO 6.52 K/mm3 (1.96-9.15); NEUTROPHILS PERCENT AUTO 76 % (41-73); Platelet Count 258 K/mm3 (150-400); RDW Standard Deviation 44.5 fL (35.1-46.3); Red Blood Cell Count 4.69 M/mm3 (3.80-5.20); White Blood Cell Count 8.63 K/mm3 (4.00-11.30)
[2024-08-08 12:58] LABS: Albumin, Blood 3.5 g/dL (3.4-5.0); Albumin/Globulin Ratio 0.9 (0.8-1.8); Bilirubin, Total 0.4 mg/dL (0.1-1.0); Bun/Creatinine Ratio 14.7 (12.0-20.0); Calcium, Blood 9.3 mg/dL (8.5-10.1); Creatinine, Blood 0.82 mg/dL (0.40-1.00); Potassium, Blood 4.3 mmol/L (3.5-5.5); Total Protein, Blood 7.5 g/dL (6.4-8.2)
[2024-08-08 13:26] LABS: Influenza A, PCR NEGATIVE (NEGATIVE); Influenza B, PCR NEGATIVE (NEGATIVE); Resp Syncytial Virus, PCR NEGATIVE (NEGATIVE); SARS-Cov-2 (COVID-19) PCR, MMC NEGATIVE (NEGATIVE)
[2024-08-08 13:51] LABS: Source, Urine Clean Catch
[2024-08-08 13:55] LABS: Appearance, Urine Clear (Clear); Bilirubin, Urine Neg (Neg); Blood, Urine Neg (Neg); Glucose Qualitative, Urine 4+ (Neg); Ketones, Urine Neg (Neg); Leukocyte Esterase, Urine Neg (Neg); Nitrite, Urine Neg (Neg); Protein, Urine Neg (Neg); Specific Gravity, Urine 1.015 (1.003-1.022); Urobilinogen, Urine NORM (Normal)
[2024-08-08 14:03] LABS: Color, Urine Pale Yellow (P-Yellow)
[2024-08-08 16:17] LABS: Magnesium, Blood 2.1 mg/dL (1.6-2.4); Phosphorus, Blood 3.8 mg/dL (2.5-4.9)
[2024-08-08 16:45] VITALS: BP 167/88
== END 2024-08-08 16:56 | disposition home or self-care (01) ==
LOC: ER 11:45
PROVIDERS: Student in an Organized Health Care Education/Training Program
DX: R07.2 Precordial pain (principal); R10.13 Epigastric pain; I13.0 Hypertensive heart and chronic kidney disease with heart failure and stage 1 through stage 4 chronic kidney disease, or unspecified chronic kidney disease; I50.9 Heart failure, unspecified; E11.22 Type 2 diabetes mellitus with diabetic chronic kidney disease; E11.40 Type 2 diabetes mellitus with diabetic neuropathy, unspecified; J45.909 Unspecified asthma, uncomplicated; E78.5 Hyperlipidemia, unspecified; K21.9 Gastro-esophageal reflux disease without esophagitis; I48.91 Unspecified atrial fibrillation; I25.2 Old myocardial infarction; Z87.891 Personal history of nicotine dependence; Z88.2 Allergy status to sulfonamides; Z88.1 Allergy status to other antibiotic agents; Z88.5 Allergy status to narcotic agent; Z88.8 Allergy status to other drugs, medicaments and biological substances; Z91.040 Latex allergy status; Z79.899 Other long term (current) drug therapy; Z79.891 Long term (current) use of opiate analgesic
CPT/HCPCS: 0241U; 71045; 80053; 81003; 83690; 83735; 83880; 84100; 84484; 85025; 93005; 93010; 99285-25; A9270

== ENCOUNTER → 2025-01-26 | Outpatient (CLI) | payer MEDICARE, OTHER ==
[2025-01-26 14:52] LABS: BASOPHILS ABSOLUTE AUTO 0.04 K/mm3 (0.00-0.23); BASOPHILS PERCENT AUTO 1 % (0-2); EOSINOPHILS ABSOLUTE AUTO 0.32 K/mm3 (0.00-0.68); EOSINOPHILS PERCENT AUTO 4 % (0-6); Hematocrit 38.8 % (33.0-51.0); Hemoglobin 12.8 g/dL (11.5-16.0); IMMATURE GRAN ABSOLUTE AUTO 0.05 K/mm3 (0.00-0.10); IMMATURE GRAN PERCENT AUTO 1 % (0-1); LYMPHOCYTES ABSOLUTE AUTO 1.33 K/mm3 (0.84-5.20); LYMPHOCYTES PERCENT AUTO 17 % (21-46); MONOCYTES ABSOLUTE AUTO 0.57 K/mm3 (0.16-1.47); MONOCYTES PERCENT AUTO 7 % (4-13); Mean Corpuscular HGB Conc 33.0 g/dL (31.5-36.5); Mean Corpuscular Volume 83 fL (80-100); NEUTROPHILS ABSOLUTE AUTO 5.47 K/mm3 (1.96-9.15); NEUTROPHILS PERCENT AUTO 70 % (41-73); NRBC ABSOLUTE 0.00 K/mm3 (0.00-0.02); NRBC Auto 0.0 /100 WBC (0.0-0.2); Platelet Count 251 K/mm3 (150-400); RDW Coefficient Variation 14.6 % (11.7-14.2); RDW Standard Deviation 43.8 fL (35.1-46.3)
[2025-01-26 15:04] LABS: Alanine Aminotransfer (ALT/SGP 29.0 U/L (12-78); Albumin, Blood 3.7 g/dL (3.4-5.0); Albumin/Globulin Ratio 1.0 (0.8-1.8); Anion Gap 12.0 mmol/L (3-11); Aspartate Aminotrans (AST/SGOT 19.0 U/L (12-37); Bilirubin, Total 0.5 mg/dL (0.1-1.0); Blood Urea Nitrogen 11.0 mg/dL (8-24); CO2, Blood 31.0 mmol/L (21-32); Calcium, Blood 9.5 mg/dL (8.5-10.1); Chloride, Blood 104.0 mmol/L (98-108); Creatinine, Blood 0.91 mg/dL (0.40-1.00); Globulin, Blood 3.7 g/dL (2.2-4.0); Glucose, Blood 115.0 mg/dL (70-99); Potassium, Blood 4.6 mmol/L (3.5-5.5); Sodium, Blood 142.0 mmol/L (136-145); Total Protein, Blood 7.4 g/dL (6.4-8.2)
== END ==
LOC: LAB 14:47 → LAB SHORT 14:47
DX: R53.83 Other fatigue (principal)
CPT/HCPCS: 80053; 84484; 85025